=== PATIENT | male | born 1965 | race Caucasian/White ===

== ENCOUNTER 2018-08-08 05:38 | Inpatient (IN) | payer MEDICAID ==
[2018-08-08] VITALS (7 sets, daily range): BP systolic 114–150; BP diastolic 66–72; PULSE 64–67; RESP 18–20; Ht 167.6 cm; Wt 80.6 kg
[~2018-08-08] VITALS: Ht 167.6 cm; Wt 80.6 kg
[~2018-08-08 05:38] MED LIST: METF100010 PO
--- NOTE | 2018-08-08 06:45 | ERD ---
ER Documentation Chief Complaint Chief Complaint chest pain/sob since 1900 HPI This is a 53-year-old male with a history of hypertension, diabetes, CAD with stent placement who presents to the emergency room for evaluation of chest pain. The patient describes his chest pain is a chest pressure which is intermittent left-sided with no radiation. The patient does have mild associated nausea, no vomiting and mild shortness of breath. The patient does state he is compliant with his blood pressure medications. He states that he gets most of his care in [facility], and came to the ER today for evaluation of his symptoms. He denies any aggravating or relieving factors at this time ROS All systems reviewed and are negative except as per history of present illness. Medications Home Meds Reported Medications Metformin Hcl* (Metformin Hcl*) 1,000 Mg Tablet, 1000 MG PO BID 12/06/12 Allergies Allergies: Coded Allergies: No Known Allergy (Unverified , 12/06/12) PMhx/Soc History of Surgery: Yes (STENT) Anesthesia Reaction: No Hx Neurological Disorder: No Hx Respiratory Disorders: No Hx Cardiac Disorders: Yes ([place]) Hx Psychiatric Problems: No Hx Miscellaneous Medical Probl: Yes (DM, HIGH CHOLESTEROL) Hx Alcohol Use: No Hx Substance Use: No Hx Tobacco Use: No Smoking Status: Never smoker Physical Exam Vitals Vital Signs Date Temp Pulse Resp B/P (MAP) Pulse Ox O2 O2 Flow FiO2 Time Delivery Rate 08/08/18 97.6 67 18 154/75 99 05:43 (101) Physical Exam INITIAL VITAL SIGNS: Reviewed by me GENERAL: The patient is well developed and appropriate for usual state of health in no apparent distress HEENT: Pupils equal, round, and reactive to light. EOMI. There is no scleral icterus. NECK: C-spine is soft and supple, there is no meningismus. There is no cervical lymphadenopathy. LUNGS: Clear to auscultation bilaterally. There are no rales, wheezes or rhonchi. HEART: Regular rate and rhythm, no murmurs, clicks, rubs or gallops. ABDOMEN: Soft, non-tender, non-distended. There are bowel sounds in all four quadrants. No rebound or guarding. EXTREMITIES: There is no peripheral cyanosis or edema. No focal swelling or erythema. NEUROLOGICAL: The patient moves all four extremities with 5/5 strength. Cranial nerves II - XII are intact. Normal gait. Alert and oriented SKIN: There is no apparent rash or petechiae. HEME/LYMPHATIC: There is no evidence of excessive bruising or lymphedema. PSYCHIATRIC: The patient does not appear anxious or depressed. Result Diagram: 08/08/1863208/08/18632 Results 24 hrs Laboratory Tests Test 08/08/18 06:33 White Blood Count 5.4 10^3/ul Red Blood Count 4.84 10^6/ul Hemoglobin 13.8 g/dl Hematocrit 40.9 % Mean Corpuscular Volume 84.5 fl Mean Corpuscular Hemoglobin 28.5 pg Mean Corpuscular Hemoglobin Concent 33.7 g/dl Red Cell Distribution Width 13.4 % Platelet Count 204 10^3/UL Mean Platelet Volume 10.2 fl Immature Granulocytes % 0.200 % Neutrophils % 62.3 % Lymphocytes % 24.3 % Monocytes % 8.1 % Eosinophils % 4.4 % Basophils % 0.7 % Nucleated Red Blood Cells % 0.0 /100WBC Immature Granulocytes # 0.010 10^3/ul Neutrophils # 3.4 10^3/ul Lymphocytes # 1.3 10^3/ul Monocytes # 0.4 10^3/ul Eosinophils # 0.2 10^3/ul Basophils # 0.0 10^3/ul Nucleated Red Blood Cells # 0.0 10^3/ul Sodium Level 137 mmol/L Potassium Level 4.1 mmol/L Chloride Level 104 mmol/L Carbon Dioxide Level 29 mmol/L Anion Gap 4 Blood Urea Nitrogen 16 mg/dl Creatinine 0.53 mg/dl Est Glomerular Filtrat Rate mL/min > 60 mL/min Glucose Level 287 mg/dl Calcium Level 8.7 mg/dl Troponin I 0.223 ng/ml Current Medications Medications Dose Sig/Portia Start Time Status Last (Trade) Ordered Route PRN Stop Time Admin Dose Reason Admin Aspirin 324 mg ONCE ONCE 08/08/18 DC (Aspirin) PO 07:30 08/08/18 07:31 Procedures/MDM EKG: Rate/Rhythm: [Normal Sinus Rhythm] QRS, ST, T-waves: [No changes consistent w/ acute ischemia] Impression: [Right axis deviation no evidence of ischemia or arrhythmia] Chest X-ray 1V Interpreted by me: Soft Tissue: No acute abnormalities Bones: No acute abnormalities Mediastinum/Cardiac Silhouette/Lungs: [No acute abnormalities] This 53-year-old male presents to the emergency room for evaluation of chest pain. The patient does have a history of hypertension and coronary artery disease with a stent placed a few years back. The patient states that he has been getting most of his care and [place] and came to the ER today for evaluation of intermittent chest pain which has been present for the past few days. On my evaluation the patient was afebrile and nontoxic-appearing. He remained hemodynamically stable and EKG showed no signs of STEMI. The patient's lab work does demonstrate an elevated troponin level. He was given aspirin and given his age and risk factors the patient will be placed in for admission at this time for serial troponins and cardiology consult. He has no active pain at this time and is hemodynamically stable and will be placed on the telemetry floor under the care of Dr. Palencia. Critical Care: Excluding all billable procedures Time: 48 minutes Treatments/Evaluations: Close monitoring and treatment of unstable vital signs, cardiorespiratory, and neurologic status, while maintaining tight balance of fluid, respiratory, and cardiac interventions. Departure Diagnosis: Primary Impression: Non-STEMI (non-ST elevated myocardial infarction) Additional Impressions: Chest pain Coronary artery disease Condition: HORTENCIA Sims DO August 08, 2018 06:45
[2018-08-08] MEDS ORDERED: ASPIRIN 81 MG TAB PO ONE (07:30)
[2018-08-08] MEDS ORDERED: ACETAMINOPHEN 325 MG TAB PO PRN ×2 (08:00→11:00)
[2018-08-08] MEDS ORDERED: ONDANSETRON 4 MG INJ IV PRN ×2 (08:00→11:00)
[2018-08-08] MEDS ORDERED: INSU100I12 SQ (10:41)
[2018-08-08] MEDS ORDERED: TERB250T13 PO (10:41)
[2018-08-08] MEDS ORDERED: SITA1TBM PO (10:41)
[2018-08-08] MEDS ORDERED: PREG150C PO (10:41)
[2018-08-08] MEDS ORDERED: [UNRECOGNIZED DRUG - OTHER] (10:46)
--- NOTE | 2018-08-08 10:46 | HP ---
Date/Time of Note Date/Time of Note DATE: 08/08/18 TIME: 10:46 Assessment/Plan VTE Prophylaxis Pharmacological prophylaxis: LMWH Lines/Catheters IV [facility]ter [facility]from [facility] Saline Lock Assessment/Plan Hospital Course 53-year-old male with comorbidities including hypertension, dyslipidemia, CAD status post coronary artery stenting, and diabetes mellitus type II, who presented to emergency room with chest pain with underlying NSTEMI, whowill be admitted to inpatient setting for further treatment and evaluation. 1. NSTEMI. -Rule out ACS -Continue aspirin. -Continue to trend troponins. -Obtain 2D echocardiogram to evaluate the left ventricular ejection fraction and to evaluate for any wall motion abnormalities. -Obtain cardiology consult. 2. Hypertension. -Start the patient on appropriate antihypertensives. 3. Diabetes mellitus type 2. -Start the patient sliding scale insulin along with pre-meal insulin and basal insulin. -Obtain hemoglobin A1c to evaluate the blood glucose control over the past few weeks. 4. Dyslipidemia. -Start the patient on statins. 5. CAD status post coronary artery stenting in the past. -Continue the patient on aspirin and statins. Plan: The patient will be admitted to inpatient telemetry floor. The patient will be started on a low-cholesterol, carbohydrate controlled diet. The patient will be started on DVT prophylaxis . The patient will remain a full code. Activities will be as tolerated . The rest of the patient's management will be based on the clinical course, inputs from consultants, and the results of diagnostic studies. Based on the patient's clinical presentation, he most probably requires at least 2 midnights' stay for further management and evaluation of his clinical presentation. The patient was seen in collaboration with Dr. Palencia. Result Diagram: 08/08/18 0633 08/08/18 0633 Results 24hrs Laboratory Tests Test 08/08/18 06:33 White Blood Count 5.4 Red Blood Count 4.84 Hemoglobin 13.8 L Hematocrit 40.9 L Mean Corpuscular Volume 84.5 Mean Corpuscular Hemoglobin 28.5 L Mean Corpuscular Hemoglobin Concent 33.7 Red Cell Distribution Width 13.4 Platelet Count 204 Mean Platelet Volume 10.2 Immature Granulocytes % 0.200 Neutrophils % 62.3 Lymphocytes % 24.3 Monocytes % 8.1 Eosinophils % 4.4 Basophils % 0.7 Nucleated Red Blood Cells % 0.0 Immature Granulocytes # 0.010 Neutrophils # 3.4 Lymphocytes # 1.3 Monocytes # 0.4 Eosinophils # 0.2 Basophils # 0.0 Nucleated Red Blood Cells # 0.0 Sodium Level 137 Potassium Level 4.1 Chloride Level 104 Carbon Dioxide Level 29 Anion Gap 4 L Blood Urea Nitrogen 16 Creatinine 0.53 L Est Glomerular Filtrat Rate mL/min > 60 Glucose Level 287 H Calcium Level 8.7 Troponin I 0.223 *H HPI/ROS Admit Date/Time Admit Date/Time Hx of Present Illness Reason for admission: Chest pain, elevated troponins. Consultants 1. Adriel Norris MD, Cardiology. This is a 53-year-old male with past medical history of hypertension, CAD status post coronary artery stenting, dyslipidemia, and diabetes mellitus type 2. The patient had an episode of chest pain on 08/07/2018 when he called the paramedics and paramedics evaluated him at home and was not transferred to the hospital. The patient came to the emergency room driven by family on 08/08/2018 with chest pain. The patient verbalized the chest pain as substernal and feeling of tightness with associated nausea. The patient denied any diaphoresis, radiation of pain, or vomiting. Patient denied any dizziness. The patient complained of minimal shortness of breath. The pain lasted approximately 20 minutes. Patient denied any fevers or chills. In the emergency room, the patient was noticed to have a troponin of 0.223. The patient's chest x-ray was showing mild right basilar linear atelectatic changes versus scarring. Patient's 12-lead EKG was showing normal sinus rhythm. He was treated with a single dose of aspirin in the emergency room. ROS Constitutional: nausea Eyes: no complaints ENT: no complaints Respiratory: shortness of breath Cardiovascular: chest pain Gastrointestinal: nausea Genitourinary: no complaints Musculoskeletal: no complaints Skin: no complaints Neurologic: no complaints Endocrine: no complaints Lymphatic: no complaints Psychological: no complaints Immunologic: no complaints PMH/Family/Social Past Medical History 1. Hypertension. 2. Hyperlipidemia. 3. Type II. 4. CAD, status post coronary artery stenting in 2007. Medications Current Medications Ondansetron HCl (Zofran Inj) 4 mg ER BRIDGE PRN IV NAUSEA/VOMITING; Start 08/08/18 at 08:00; Stop 08/09/18 at 07:59 Acetaminophen (Tylenol Tab) 650 mg ER BRIDGE PRN PO .MILD PAIN 1-3 OR TEMP; Start 08/08/18 at 08:00; Stop 08/09/18 at 07:59 Coded Allergies: No Known Allergy (Unverified , 08/08/18) Past Surgical History Past Surgical Hx: angioplasty Social History The patient works in a body shop. Alcohol Use: occasionally Smoking Status: Never smoker Drug Use: none Exam/Review of Systems Vital Signs Vitals Vital Signs Date Temp Pulse Resp B/P (MAP) Pulse Ox O2 O2 Flow FiO2 Time Delivery Rate 08/08/18 98.3 63 18 125/70 Room Air 10:38 (88) 08/08/18 97 09:06 Exam Exam General: Adequately build 53 year-old male lying in bed in no apparent distress. HEENT: Normocephalic, atraumatic. Eyes: Anicteric sclerae, conjunctivae clear. ENT: Nasal septum midline, oral mucosa is moist. Neck supple, no JVD noticed. Respiratory: Bilaterally clear breath sounds. No use of accessory muscles of respiration. No adventitious breath sounds. Cardiovascular: S1, S2 heard. Regular rate and rhythm. Abdomen: Soft, nontender, and nondistended. Bowel sounds positive in all 4 quadrants. Genitourinary: Deferred. Extremities: No cyanosis, no clubbing, no edema. Peripheral pulses palpable. Neurologic: Cranial nerves II through XII grossly intact. The patient is awake, alert, and oriented. Skin: Normal skin turgor. LUANN BLAKE NP August 08, 2018 10:46
[2018-08-08] MEDS ORDERED: NACL 0.9% 3 ML SYG IV SCH (11:00)
[2018-08-08] MEDS ORDERED: HYDROCODONE/APAP (5/325) TAB PO PRN (11:00)
[2018-08-08] MEDS ORDERED: GLUCOSE GEL 15 GRAM TUBE BUCCAL PRN (11:30)
[2018-08-08] MEDS ORDERED: GLUCOSE GEL 15 GRAM TUBE PO PRN ×2 (11:30)
[2018-08-08] MEDS ORDERED: DEXTROSE 50% 50 ML SYRINGE IV PRN ×2 (11:30)
[2018-08-08] MEDS ORDERED: GLUCAGON 1 MG INJ IM PRN (11:30)
[2018-08-08] MEDS: INSULIN ASPART [NOVOLOG] 3 ML PEN SC SCH ×5 (12:45→21:26)
[2018-08-08] MEDS: METOPROLOL 25 MG TAB PO SCH ×2 (14:30→20:46)
--- NOTE | 2018-08-08 17:36 | RADRPT ---
Echocardiogram Report Patient Name: DANIEL MANUELPatient ID: [id number] : 1965 (53y 5m)Study Date: 08/08/2018 12:07:20 PM Gender: Kevan #: [id number] Tech: Daniel [facility] Location: [address] Ref.Physician: LUANN BLAKE Height(Cm): BSA: Weight(Kg): Quality: AdequateOrder Physician: LUANN BLAKE Account #: Procedures: Echocardiographic Report: Transthoracic echocardiogram with complete 2D, M-Mode, and doppler examination. Indications: Chest Pain. Measurements: 2D/M Mode Doppler Measurement Value Normal Range Measurement Value Normal Range LVIDd 2D 5.2 [ 4.2 - 5.8 ] cm AV Peak Miguel 1.6 [ 100.0 - 170.0 ] cm/sec LVIDs 2D 3.4 [ 2.5 - 4.0 ] cm AV Peak PG 10.0 [ 2.0 - 9.0 ] mmHg LVPWd 2D 1.3 [ 0.6 - 1.0 ] cm LVOT Peak Miguel 1.1 [ 70.0 - 110.0 ] cm/sec IVSd 2D 1.3 [ 0.6 - 1.0 ] cm LVOT Peak PG 5.0 [ 2.0 - 6.0 ] mmHg AoR Diam 2D 3.0 [ 2.6 - 3.4 ] cm MV E Peak Miguel 0.9 [ 60.0 - 130.0 ] cm/sec EDV 2D 127.0 [ 62.0 - 150.0 ] ml MV A Peak Miguel 0.8 [ 100.0 - 120.0 ] cm/sec ESV 2D 48.1 [ 21.0 - 61.0 ] ml MV E/A 1.1 [ 0.8 - 1.5 ] ratio EF 2D 62.1 [ 52.0 - 72.0 ] percent MV Decel Time 201 [ 104 - 258 ] msec LA Dimen 2D 4.1 [ 3.0 - 4.0 ] cm Lat E` Miguel 0.1 [ 10.0 - 15.0 ] cm/sec Lateral E/E` 7.9 [ 1.0 - 2.0 ] ratio MV E/A 1.1 [ 0.8 - 1.5 ] ratio TR Peak Miguel 2.4 [ 100.0 - 280.0 ] cm/sec TR Peak PG 23.0 mmHg RVSP 26.0 [ 10.0 - 36.0 ] mmHg Findings: Left Ventricle: Normal left ventricular systolic function. Normal left ventricular cavity size. Mild concentric left ventricular hypertrophy. Ejection fraction is visually estimated at 65 %. Tissue Doppler/Mitral Doppler indices are consistent with impaired relaxation (Stage I diastolic dysfunction). Right Ventricle: Normal right ventricular size. Normal right ventricular systolic function. Left Atrium: There is mild enlargement of left atrium. Right Atrium: The right atrium is normal in size. Mitral Valve: Mild mitral leaflet calcification. Mild mitral annular calcification. Trace mitral regurgitation. Aortic Valve: No hemodynamically significant aortic stenosis by doppler. Aortic cusps appear mildly calcified. Tricuspid Valve: Normal appearance of the tricuspid valve. Estimated peak PA systolic pressure 26 mmHg. There is trace tricuspid regurgitation. Pulmonic Valve: Normal pulmonic valve appearance. Pericardium: Normal pericardium with no significant pericardial effusion. Left pleural effusion seen. Aorta: Normal aortic root. IVC: Normal size and normal respiratory collapse consistent with normal right atrial pressure. Conclusions: Normal left ventricular systolic function. Normal left ventricular cavity size. Mild concentric left ventricular hypertrophy. Ejection fraction is visually estimated at 65 %. Tissue Doppler/Mitral Doppler indices are consistent with impaired relaxation (Stage I diastolic dysfunction). There is mild enlargement of left atrium. Electronically Signed By: Adriel Norris 2018-08-08 17:36:06 PDT
--- NOTE | 2018-08-08 19:39 | CONS ---
Assessment/Plan Assessment/Plan Hospital Course (Demo Recall) Assessment: NSTEMI Coronary artery disease, status post PCI (2007) Hypertension Dyslipidemia Diabetes mellitus - HgbA1c 11.3, management per primary team Recommendations: -continue therapeutic Lovenox -continue aspirin 81mg daily -continue atorvastatin 40mg daily, check lipid panel -increase metoprolol to 25mg BID, up titrate as needed/tolerated -echocardiogram showed LVEF 65%, mild LVH with grade 1 diastolic dysfunction -arrange for coronary angiography -hold metformin in preparation for coronary angiography Consultation Date/Type/Reason Admit Date/Time Type of Consult Cardiology Date/Time of Note DATE: 08/08/18 TIME: 19:34 Hx of Present Illness The patient is a 53 year-old male who presented with chest pain. He describes two episodes of resting chest pressure over the past two days. EKG showed sinus rhythm without acute ischemic changes. Initial troponin was 0.2 and repeat troponin trended up to 1.1. 14 point review of systems negative other than per HPI. Past Medical History Coronary artery disease, status post PCI (2007) Hypertension Dyslipidemia Diabetes mellitus Home Meds Reported Medications [[Hidrosmina 200MG ] No Conflict Check, 200 MG DAILY for FROM [place] 08/08/18 Insulin Lispro (Humalog Kwikpen U-100) 100 Unit/1 Ml Insuln.pen, 20 UNIT SQ BID WITH MEALS, EA 08/08/18 Pregabalin* (Lyrica*) 150 Mg Capsule, 150 MG PO QHS, CAP 08/08/18 Sitagliptin Phos-Metformin Hcl (Janumet XR) 50-500 Mg Tbmp.24hr, 1 TAB PO DAILY for 50-850MG, TAB 08/08/18 Terbinafine Hcl* (Terbinafine Hcl*) 250 Mg Tablet, 250 MG PO BID, TAB 08/08/18 Metformin Hcl* (Metformin Hcl*) 1,000 Mg Tablet, 1000 MG PO BID 12/06/12 Medications Current Medications IV Flush (NS 3 ml) 3 ml PER PROTOCOL IV ; Start 08/08/18 at 11:00 Ondansetron HCl (Zofran Inj) 4 mg Q6H PRN IV NAUSEA/VOMITING; Start 08/08/18 at 11:00 Aspirin (Aspirin) 81 mg DAILY PO ; Start 08/09/18 at 09:00 Acetaminophen (Tylenol Tab) 650 mg Q6H PRN PO .PAIN 1-3 OR TEMP; Start 08/08/18 at 11:00 Acetaminophen/ Hydrocodone Bitart ([place] (5/325)) 1 tab Q6H PRN PO .PAIN 4-6; Start 08/08/18 at 11:00 Insulin Glargine (Lantus) 12 units DAILY@2000 SC ; Start 08/08/18 at 20:00 Insulin Aspart (Novolog Insulin Pen) 4 unit WITH MEALS SC Last administered on 08/08/18at 18:49; Admin Dose 4 UNIT; Start 08/08/18 at 11:50 Insulin Aspart (Novolog Insulin Pen) NOVOLOG *MILD* ALGORITHM WITH MEALS BEDTIME SC Last administered on 08/08/18at 18:48; Admin Dose 4 UNIT; Start 08/08/18 at 11:50 Miscellaneous Information 1 ea NOTE XX ; Start 08/08/18 at 11:30 Glucose (Glutose) 15 gm Q15M PRN PO DECREASED GLUCOSE; Start 08/08/18 at 11:30 Glucose (Glutose) 22.5 gm Q15M PRN PO DECREASED GLUCOSE; Start 08/08/18 at 11:30 Dextrose (D50w Syringe) 25 ml Q15M PRN IV DECREASED GLUCOSE; Start 08/08/18 at 11:30 Dextrose (D50w Syringe) 50 ml Q15M PRN IV DECREASED GLUCOSE; Start 08/08/18 at 11:30 Glucagon (Glucagen) 1 mg Q15M PRN IM DECREASED GLUCOSE; Start 08/08/18 at 11:30 Glucose (Glutose) 15 gm Q15M PRN BUCCAL DECREASED GLUCOSE; Start 08/08/18 at 11:30 Atorvastatin Calcium (Lipitor) 40 mg HS PO ; Start 08/08/18 at 21:00 Metoprolol Tartrate (Lopressor) 12.5 mg BID PO Last administered on 08/08/18at 14:30; Admin Dose 12.5 MG; Start 08/08/18 at 12:00 Pregabalin (Lyrica) 150 mg QHS PO ; Start 08/08/18 at 21:00 Enoxaparin Sodium (Lovenox) 80 mg Q12 SC ; Start 08/08/18 at 21:00 Allergies: Coded Allergies: No Known Allergy (Unverified , 08/08/18) Past Surgical History Past Surgical Hx: angioplasty Family History Significant Family History: no pertinent family hx Social History Alcohol Use: occasionally Smoking Status: Never smoker Drug Use: none Exam/Review of Systems Vital Signs Vitals Vital Signs Date Temp Pulse Resp B/P (MAP) Pulse Ox O2 O2 Flow FiO2 Time Delivery Rate 08/08/18 66 16:14 08/08/18 98.1 18 114/66 92 15:12 (82) 08/08/18 Room Air 11:09 Exam Constitutional: alert, well developed Psych: no complaints, nl mood/affect Head: normocephalic, atraumatic Eyes: nl conjunctiva, nl lids ENMT: nl external ears & nose, nl nasal mucosa & septum Neck: supple, non-tender Respiratory: clear to auscultation, normal air movement Cardiovascular: regular rate and rhythm Gastrointestinal: soft, non-tender Musculoskeletal: nl extremities to inspection Extremities: No cyanosis, No clubbing, No edema Neurological: nl mental status, nl speech Labs Result Diagram: 08/08/18 0633 08/08/18 0633 Results 24hrs Laboratory Tests Test 08/08/18 06:32 08/08/18 06:33 08/08/18 12:16 08/08/18 12:45 Hemoglobin A1c 11.3 H B-Type Natriuretic 143 H Peptide White Blood Count 5.4 Red Blood Count 4.84 Hemoglobin 13.8 L Hematocrit 40.9 L Mean Corpuscular 84.5 Volume Mean Corpuscular 28.5 L Hemoglobin Mean Corpuscular 33.7 Hemoglobin Concent Red Cell 13.4 Distribution Width Platelet Count 204 Mean Platelet Volume 10.2 Immature 0.200 Granulocytes % Neutrophils % 62.3 Lymphocytes % 24.3 Monocytes % 8.1 Eosinophils % 4.4 Basophils % 0.7 Nucleated Red Blood 0.0 Cells % Immature 0.010 Granulocytes # Neutrophils # 3.4 Lymphocytes # 1.3 Monocytes # 0.4 Eosinophils # 0.2 Basophils # 0.0 Nucleated Red Blood 0.0 Cells # Sodium Level 137 Potassium Level 4.1 Chloride Level 104 Carbon Dioxide Level 29 Anion Gap 4 L Blood Urea Nitrogen 16 Creatinine 0.53 L Est Glomerular > 60 Filtrat Rate mL/min Glucose Level 287 H Calcium Level 8.7 Troponin I 0.223 *H 1.100 *H Creatine Kinase 260 H Creatine Kinase 4.7 Index Creatinine Kinase MB 12.30 H (Mass) Bedside Glucose 292 H Test 08/08/18 17:14 Bedside Glucose 291 H Medications Medications Current Medications IV Flush (NS 3 ml) 3 ml PER PROTOCOL IV ; Start 08/08/18 at 11:00 Ondansetron HCl (Zofran Inj) 4 mg Q6H PRN IV NAUSEA/VOMITING; Start 08/08/18 at 11:00 Aspirin (Aspirin) 81 mg DAILY PO ; Start 08/09/18 at 09:00 Acetaminophen (Tylenol Tab) 650 mg Q6H PRN PO .PAIN 1-3 OR TEMP; Start 08/08/18 at 11:00 Acetaminophen/ Hydrocodone Bitart ([place] (5/325)) 1 tab Q6H PRN PO .PAIN 4-6; Start 08/08/18 at 11:00 Insulin Glargine (Lantus) 12 units DAILY@2000 SC ; Start 08/08/18 at 20:00 Insulin Aspart (Novolog Insulin Pen) 4 unit WITH MEALS SC Last administered on 08/08/18at 18:49; Admin Dose 4 UNIT; Start 08/08/18 at 11:50 Insulin Aspart (Novolog Insulin Pen) NOVOLOG *MILD* ALGORITHM WITH MEALS BEDTIME SC Last administered on 08/08/18at 18:48; Admin Dose 4 UNIT; Start 08/08/18 at 11:50 Miscellaneous Information 1 ea NOTE XX ; Start 08/08/18 at 11:30 Glucose (Glutose) 15 gm Q15M PRN PO DECREASED GLUCOSE; Start 08/08/18 at 11:30 Glucose (Glutose) 22.5 gm Q15M PRN PO DECREASED GLUCOSE; Start 08/08/18 at 11:30 Dextrose (D50w Syringe) 25 ml Q15M PRN IV DECREASED GLUCOSE; Start 08/08/18 at 11:30 Dextrose (D50w Syringe) 50 ml Q15M PRN IV DECREASED GLUCOSE; Start 08/08/18 at 11:30 Glucagon (Glucagen) 1 mg Q15M PRN IM DECREASED GLUCOSE; Start 08/08/18 at 11:30 Glucose (Glutose) 15 gm Q15M PRN BUCCAL DECREASED GLUCOSE; Start 08/08/18 at 11:30 Atorvastatin Calcium (Lipitor) 40 mg HS PO ; Start 08/08/18 at 21:00 Metoprolol Tartrate (Lopressor) 12.5 mg BID PO Last administered on 08/08/18at 14:30; Admin Dose 12.5 MG; Start 08/08/18 at 12:00 Pregabalin (Lyrica) 150 mg QHS PO ; Start 08/08/18 at 21:00 Enoxaparin Sodium (Lovenox) 80 mg Q12 SC ; Start 08/08/18 at 21:00 ARIANA BLAIR MD August 08, 2018 19:39
[2018-08-08] MEDS: ATORVASTATIN 40 MG TAB PO SCH (20:46)
[2018-08-08] MEDS: ENOXAPARIN 80 MG/0.8 ML SYG SC SCH (21:26)
[2018-08-08] MEDS: INSULIN GLARGINE [LANTus] (100 UNITS/ML) SYG SC SCH (21:26)
[2018-08-08] MEDS: PREGABALIN 75 MG CAP PO SCH (21:41)
[2018-08-09] VITALS (12 sets, daily range): BP systolic 106–123; BP diastolic 65–76; PULSE 64–71; RESP 17–20
[2018-08-09] MEDS: METOPROLOL 25 MG TAB PO SCH ×2 (08:08→20:42)
[2018-08-09] MEDS: ASPIRIN 81 MG TAB PO SCH (08:09)
[2018-08-09] MEDS: INSULIN ASPART [NOVOLOG] 3 ML PEN SC SCH ×7 (08:11→21:16)
[2018-08-09] MEDS: ENOXAPARIN 80 MG/0.8 ML SYG SC SCH ×2 (08:13→21:16)
[2018-08-09] MEDS ORDERED: ENOXAPARIN 40 MG/0.4 ML SYG SC SCH (09:00)
--- NOTE | 2018-08-09 10:38 | PN ---
Date/Time of Note Date/Time of Note DATE: 08/09/18 TIME: 10:34 Assessment/Plan VTE Prophylaxis Risk score (from Ns)>0 risk: 1 SCD applied (from Ns): No SCD contraindicated: other Pharmacological prophylaxis: LMWH Lines/Catheters IV Catheter Type (from [facility]): [place] Assessment/Plan Hospital Course SUBJECTIVE: Denies any chest pain. OBJECTIVE: Physical Exam General: Adequately build 53 year-old male lying in bed in no apparent distress. HEENT: Normocephalic, atraumatic. Eyes: Anicteric sclerae, conjunctivae clear. ENT: Nasal septum midline, oral mucosa is moist. Neck supple, no JVD noticed. Respiratory: Bilaterally clear breath sounds. No use of accessory muscles of respiration. No adventitious breath sounds. Cardiovascular: S1, S2 heard. Regular rate and rhythm. Abdomen: Soft, nontender, and nondistended. Bowel sounds positive in all 4 quadrants. Genitourinary: Deferred. Extremities: No cyanosis, no clubbing, no edema. Peripheral pulses palpable. Neurologic: Cranial nerves II through XII grossly intact. The patient is awake, alert, and oriented. Skin: Normal skin turgor. Labs & Vitals per chart ASSESSMENT & PLAN 53-year-old male with comorbidities including hypertension, dyslipidemia, CAD status post coronary artery stenting, and diabetes mellitus type II, who presented to emergency room with chest pain with underlying NSTEMI, who was admitted to inpatient setting for further treatment and evaluation. 1. NSTEMI. -Troponins significantly elevated. -On therapeutic Lovenox. -Awaiting [facility]. -2D echocardiogram showing preserved left ventricular ejection fraction. -Cardiology following. 2. Hypertension. -Continue the patient on appropriate antihypertensives. 3. Diabetes mellitus type 2. -Continue the patient on sliding scale insulin along with pre-meal insulin and basal insulin. -Hemoglobin A1C 11.3. -Hold metformin. 4. Dyslipidemia. -Continue the patient on statins. 5. CAD status post coronary artery stenting in the past. -Continue the patient on aspirin and statins. 6. Fluids, electrolytes, and nutrition. -Carbohydrate controlled, low cholesterol diet. 7. DVT prophylaxis. -Subcutaneous Lovenox. 8. Plan. -Continue ASA, statins, BBs, and therapeutic Lovenox. -Await [facility]. The patient was seen in collaboration with Dr. Palencia. Result Diagram: 08/09/18 0554 08/09/18 0554 Results 24hrs Laboratory Tests Test 08/08/18 12:16 08/08/18 12:45 08/08/18 17:14 08/08/18 19:24 Creatine Kinase 260 H 376 H Creatine Kinase 4.7 6.0 Index Creatinine Kinase MB 12.30 H 22.70 H (Mass) Troponin I 1.100 *H 5.890 *H Bedside Glucose 292 H 291 H Test 08/08/18 20:45 08/09/18 01:52 08/09/18 05:54 08/09/18 08:04 Bedside Glucose 202 260 H 240 H White Blood Count 7.4 # Red Blood Count 5.03 Hemoglobin 14.8 Hematocrit 42.5 Mean Corpuscular 84.5 Volume Mean Corpuscular 29.4 Hemoglobin Mean Corpuscular 34.8 Hemoglobin Concent Red Cell 13.7 Distribution Width Platelet Count 224 Mean Platelet Volume 10.6 H Immature 0.300 Granulocytes % Neutrophils % 63.6 Lymphocytes % 24.2 Monocytes % 7.6 Eosinophils % 3.8 Basophils % 0.5 Nucleated Red Blood 0.0 Cells % Immature 0.020 Granulocytes # Neutrophils # 4.7 Lymphocytes # 1.8 Monocytes # 0.6 Eosinophils # 0.3 Basophils # 0.0 Nucleated Red Blood 0.0 Cells # Sodium Level 137 Potassium Level 4.3 Chloride Level 105 Carbon Dioxide Level 26 Anion Gap 6 Blood Urea Nitrogen 19 Creatinine 0.57 L Est Glomerular > 60 Filtrat Rate mL/min Glucose Level 277 H Calcium Level 9.2 Phosphorus Level 3.9 Magnesium Level 2.0 Total Bilirubin 0.4 Direct Bilirubin 0.00 Indirect Bilirubin 0.4 Aspartate Amino 43 Transf (AST/SGOT) Alanine 24 Aminotransferase (AL T/SGPT) Alkaline Phosphatase 108 Creatine Kinase 288 H Creatine Kinase 4.5 Index Creatinine Kinase MB 12.90 H (Mass) Troponin I 4.650 *H Total Protein 6.3 Albumin 3.7 Globulin 2.60 Albumin/Globulin 1.42 Ratio Triglycerides Level 240 H Cholesterol Level 228 H LDL Cholesterol, 147 Calculated HDL Cholesterol 33 Cholesterol/HDL 6.9 Ratio Exam/Review of Systems Exam Vitals Vital Signs Date Temp Pulse Resp B/P (MAP) Pulse Ox O2 O2 Flow FiO2 Time Delivery Rate 08/09/18 71 08:00 08/09/18 98.7 17 116/76 97 07:33 (89) 08/08/18 Room Air 11:09 Intake and Output 08/08/18 08/08/18 08/09/18 1515:00 23:00 07:00 IntakeIntake Total 530 ml 400 ml OutputOutput Total 1 ml BalanceBalance 530 ml 399 ml Results Results 24hrs Laboratory Tests Test 08/08/18 12:16 08/08/18 12:45 08/08/18 17:14 08/08/18 19:24 Creatine Kinase 260 H 376 H Creatine Kinase 4.7 6.0 Index Creatinine Kinase MB 12.30 H 22.70 H (Mass) Troponin I 1.100 *H 5.890 *H Bedside Glucose 292 H 291 H Test 08/08/18 20:45 08/09/18 01:52 08/09/18 05:54 08/09/18 08:04 Bedside Glucose 202 260 H 240 H White Blood Count 7.4 # Red Blood Count 5.03 Hemoglobin 14.8 Hematocrit 42.5 Mean Corpuscular 84.5 Volume Mean Corpuscular 29.4 Hemoglobin Mean Corpuscular 34.8 Hemoglobin Concent Red Cell 13.7 Distribution Width Platelet Count 224 Mean Platelet Volume 10.6 H Immature 0.300 Granulocytes % Neutrophils % 63.6 Lymphocytes % 24.2 Monocytes % 7.6 Eosinophils % 3.8 Basophils % 0.5 Nucleated Red Blood 0.0 Cells % Immature 0.020 Granulocytes # Neutrophils # 4.7 Lymphocytes # 1.8 Monocytes # 0.6 Eosinophils # 0.3 Basophils # 0.0 Nucleated Red Blood 0.0 Cells # Sodium Level 137 Potassium Level 4.3 Chloride Level 105 Carbon Dioxide Level 26 Anion Gap 6 Blood Urea Nitrogen 19 Creatinine 0.57 L Est Glomerular > 60 Filtrat Rate mL/min Glucose Level 277 H Calcium Level 9.2 Phosphorus Level 3.9 Magnesium Level 2.0 Total Bilirubin 0.4 Direct Bilirubin 0.00 Indirect Bilirubin 0.4 Aspartate Amino 43 Transf (AST/SGOT) Alanine 24 Aminotransferase (AL T/SGPT) Alkaline Phosphatase 108 Creatine Kinase 288 H Creatine Kinase 4.5 Index Creatinine Kinase MB 12.90 H (Mass) Troponin I 4.650 *H Total Protein 6.3 Albumin 3.7 Globulin 2.60 Albumin/Globulin 1.42 Ratio Triglycerides Level 240 H Cholesterol Level 228 H LDL Cholesterol, 147 Calculated HDL Cholesterol 33 Cholesterol/HDL 6.9 Ratio Medications Medication Current Medications IV Flush (NS 3 ml) 3 ml PER PROTOCOL IV ; Start 08/08/18 at 11:00 Ondansetron HCl (Zofran Inj) 4 mg Q6H PRN IV NAUSEA/VOMITING; Start 08/08/18 at 11:00 Aspirin (Aspirin) 81 mg DAILY PO Last administered on 08/09/18 08:09; Admin Dose 81 MG; Start 08/09/18 at 09:00 Acetaminophen (Tylenol Tab) 650 mg Q6H PRN PO .PAIN 1-3 OR TEMP; Start 08/08/18 at 11:00 Acetaminophen/ Hydrocodone Bitart ([place] (5/325)) 1 tab Q6H PRN PO .PAIN 4-6; Start 08/08/18 at 11:00 Insulin Glargine (Lantus) 12 units DAILY@2000 SC Last administered on 08/08/18at 21:26; Admin Dose 12 UNITS; Start 08/08/18 at 20:00 Insulin Aspart (Novolog Insulin Pen) 4 unit WITH MEALS SC Last administered on 08/09/18at 08:11; Admin Dose 4 UNIT; Start 08/08/18 at 11:50 Insulin Aspart (Novolog Insulin Pen) NOVOLOG *MILD* ALGORITHM WITH MEALS BEDTIME SC Last administered on 08/09/18 08:12; Admin Dose 3 UNIT; Start 07/22 11/09 at 11:50 Miscellaneous Information 1 ea NOTE XX ; Start 08/08/18 at 11:30 Glucose (Glutose) 15 gm Q15M PRN PO DECREASED GLUCOSE; Start 08/08/18 at 11:30 Glucose (Glutose) 22.5 gm Q15M PRN PO DECREASED GLUCOSE; Start 08/08/18 at 11:30 Dextrose (D50w Syringe) 25 ml Q15M PRN IV DECREASED GLUCOSE; Start 08/08/18 at 11:30 Dextrose (D50w Syringe) 50 ml Q15M PRN IV DECREASED GLUCOSE; Start 08/08/18 at 11:30 Glucagon (Glucagen) 1 mg Q15M PRN IM DECREASED GLUCOSE; Start 08/08/18 at 11:30 Glucose (Glutose) 15 gm Q15M PRN BUCCAL DECREASED GLUCOSE; Start 08/08/18 at 11:30 Atorvastatin Calcium (Lipitor) 40 mg HS PO Last administered on 08/08/18 20:46; Admin Dose 40 MG; Start 08/08/18 at 21:00 Metoprolol Tartrate (Lopressor) 12.5 mg BID PO Last administered on 08/09/18 08:08; Admin Dose 12.5 MG; Start 08/08/18 at 12:00 Pregabalin (Lyrica) 150 mg QHS PO Last administered on 08/08/18 21:41; Admin Dose 150 MG; Start 08/08/18 at 21:00 Enoxaparin Sodium (Lovenox) 80 mg Q12 SC Last administered on 08/09/18 08:13; Admin Dose 80 MG; Start 08/08/18 at 21:00 LUANN BLAKE NP August 09, 2018 10:38
--- NOTE | 2018-08-09 10:57 | CONS ---
Assessment/Plan Assessment/Plan Hospital Course (Demo Recall) Assessment: NSTEMI Coronary artery disease, status post PCI (2007) Hypertension Dyslipidemia Diabetes mellitus - HgbA1c 11.3, management per primary team Recommendations: -continue therapeutic Lovenox -continue aspirin 81mg daily -continue atorvastatin 40mg daily, check lipid panel -continue metoprolol to 25mg BID -echocardiogram showed LVEF 65%, mild LVH with grade 1 diastolic dysfunction -arrange for coronary angiography -holding metformin in preparation for coronary angiography Consultation Date/Type/Reason Admit Date/Time August 08, 2018 at 07:45 Initial Consult Date Type of Consult Cardiology Date/Time of Note DATE: 08/09/18 TIME: 10:55 24 HR Interval Summary Free Text/Dictation No further chest pain. Troponins peaked at 5.8 and then downtrended to 4.6. Detailed Summary Additional Comments 14 point review of systems without changes. Exam/Review of Systems Vital Signs Vitals Vital Signs Date Temp Pulse Resp B/P (MAP) Pulse Ox O2 O2 Flow FiO2 Time Delivery Rate 08/09/18 71 08:00 08/09/18 98.7 17 116/76 97 07:33 (89) 08/08/18 Room Air 11:09 Intake and Output 08/08/18 08/08/18 08/09/18 1515:00 23:00 07:00 IntakeIntake Total 530 ml 400 ml OutputOutput Total 1 ml BalanceBalance 530 ml 399 ml Exam Exam Constitutional: alert, well developed Psych: no complaints, nl mood/affect Head: normocephalic, atraumatic Eyes: nl conjunctiva, nl lids ENMT: nl external ears & nose, nl nasal mucosa & septum Neck: supple, non-tender Respiratory: clear to auscultation, normal air movement Cardiovascular: regular rate and rhythm Gastrointestinal: soft, non-tender Musculoskeletal: nl extremities to inspection Extremities: No cyanosis, No clubbing, No edema Neurological: nl mental status, nl speech Labs Result Diagram: 08/09/18 0554 08/09/18 0554 Results 24hrs Laboratory Tests Test 08/08/18 12:16 08/08/18 12:45 08/08/18 17:14 08/08/18 19:24 Creatine Kinase 260 H 376 H Creatine Kinase 4.7 6.0 Index Creatinine Kinase MB 12.30 H 22.70 H (Mass) Troponin I 1.100 *H 5.890 *H Bedside Glucose 292 H 291 H Test 08/08/18 20:45 08/09/18 01:52 08/09/18 05:54 08/09/18 08:04 Bedside Glucose 202 260 H 240 H White Blood Count 7.4 # Red Blood Count 5.03 Hemoglobin 14.8 Hematocrit 42.5 Mean Corpuscular 84.5 Volume Mean Corpuscular 29.4 Hemoglobin Mean Corpuscular 34.8 Hemoglobin Concent Red Cell 13.7 Distribution Width Platelet Count 224 Mean Platelet Volume 10.6 H Immature 0.300 Granulocytes % Neutrophils % 63.6 Lymphocytes % 24.2 Monocytes % 7.6 Eosinophils % 3.8 Basophils % 0.5 Nucleated Red Blood 0.0 Cells % Immature 0.020 Granulocytes # Neutrophils # 4.7 Lymphocytes # 1.8 Monocytes # 0.6 Eosinophils # 0.3 Basophils # 0.0 Nucleated Red Blood 0.0 Cells # Sodium Level 137 Potassium Level 4.3 Chloride Level 105 Carbon Dioxide Level 26 Anion Gap 6 Blood Urea Nitrogen 19 Creatinine 0.57 L Est Glomerular > 60 Filtrat Rate mL/min Glucose Level 277 H Calcium Level 9.2 Phosphorus Level 3.9 Magnesium Level 2.0 Total Bilirubin 0.4 Direct Bilirubin 0.00 Indirect Bilirubin 0.4 Aspartate Amino 43 Transf (AST/SGOT) Alanine 24 Aminotransferase (AL T/SGPT) Alkaline Phosphatase 108 Creatine Kinase 288 H Creatine Kinase 4.5 Index Creatinine Kinase MB 12.90 H (Mass) Troponin I 4.650 *H Total Protein 6.3 Albumin 3.7 Globulin 2.60 Albumin/Globulin 1.42 Ratio Triglycerides Level 240 H Cholesterol Level 228 H LDL Cholesterol, 147 Calculated HDL Cholesterol 33 Cholesterol/HDL 6.9 Ratio Medications Medications Current Medications IV Flush (NS 3 ml) 3 ml PER PROTOCOL IV ; Start 08/08/18 at 11:00 Ondansetron HCl (Zofran Inj) 4 mg Q6H PRN IV NAUSEA/VOMITING; Start 08/08/18 at 11:00 Aspirin (Aspirin) 81 mg DAILY PO Last administered on 08/09/18at 08:09; Admin Dose 81 MG; Start 08/09/18 at 09:00 Acetaminophen (Tylenol Tab) 650 mg Q6H PRN PO .PAIN 1-3 OR TEMP; Start 08/08/18 at 11:00 Acetaminophen/ Hydrocodone Bitart ([place] (5/325)) 1 tab Q6H PRN PO .PAIN 4-6; Start 08/08/18 at 11:00 Insulin Glargine (Lantus) 12 units DAILY@2000 SC Last administered on 08/08/18at 21:26; Admin Dose 12 UNITS; Start 08/08/18 at 20:00 Insulin Aspart (Novolog Insulin Pen) 4 unit WITH MEALS SC Last administered on 08/09/18 08:11; Admin Dose 4 UNIT; Start 08/08/18 at 11:50 Insulin Aspart (Novolog Insulin Pen) NOVOLOG *MILD* ALGORITHM WITH MEALS BEDTIME SC Last administered on 08/09/18 08:12; Admin Dose 3 UNIT; Start 08/08/18 at 11:50 Miscellaneous Information 1 ea NOTE XX ; Start 08/08/18 at 11:30 Glucose (Glutose) 15 gm Q15M PRN PO DECREASED GLUCOSE; Start 08/08/18 at 11:30 Glucose (Glutose) 22.5 gm Q15M PRN PO DECREASED GLUCOSE; Start 08/08/18 at 11:30 Dextrose (D50w Syringe) 25 ml Q15M PRN IV DECREASED GLUCOSE; Start 08/08/18 at 11:30 Dextrose (D50w Syringe) 50 ml Q15M PRN IV DECREASED GLUCOSE; Start 08/08/18 at 11:30 Glucagon (Glucagen) 1 mg Q15M PRN IM DECREASED GLUCOSE; Start 08/08/18 at 11:30 Glucose (Glutose) 15 gm Q15M PRN BUCCAL DECREASED GLUCOSE; Start 08/08/18 at 11:30 Atorvastatin Calcium (Lipitor) 40 mg HS PO Last administered on 08/08/18at 20:46; Admin Dose 40 MG; Start 08/08/18 at 21:00 Metoprolol Tartrate (Lopressor) 12.5 mg BID PO Last administered on 08/09/18 08:08; Admin Dose 12.5 MG; Start 08/08/18 at 12:00 Pregabalin (Lyrica) 150 mg QHS PO Last administered on 08/08/18at 21:41; Admin Dose 150 MG; Start 08/08/18 at 21:00 Enoxaparin Sodium (Lovenox) 80 mg Q12 SC Last administered on 5/19/19at 08:13; Admin Dose 80 MG; Start 08/08/18 at 21:00 ARIANA BLAIR MD August 09, 2018 10:57
[2018-08-09] MEDS: PREGABALIN 75 MG CAP PO SCH (20:40)
[2018-08-09] MEDS: ATORVASTATIN 40 MG TAB PO SCH (20:41)
[2018-08-09] MEDS: INSULIN GLARGINE [LANTus] (100 UNITS/ML) SYG SC SCH (21:16)
[2018-08-10] VITALS (21 sets, daily range): BP systolic 103–129; BP diastolic 60–73; PULSE 59–72; RESP 16–19
[2018-08-10] MEDS: METOPROLOL 25 MG TAB PO SCH ×2 (07:50→20:27)
[2018-08-10] MEDS: INSULIN ASPART [NOVOLOG] 3 ML PEN SC SCH ×7 (07:51→20:28)
--- NOTE | 2018-08-10 07:51 | CONS ---
Assessment/Plan Assessment/Plan Hospital Course (Demo Recall) NSTEMI: trop peak 5.9. Ef preserved. Cath today Coronary artery disease, status post PCI (2007) Hypertension Dyslipidemia Diabetes mellitus - HgbA1c 11.3, management per primary team -cardiac cath this am -continue aspirin 81mg daily -continue atorvastatin 40mg daily -continue metoprolol 25mg BID Consultation Date/Type/Reason Admit Date/Time August 08, 2018 at 07:45 Initial Consult Date Type of Consult Cardiology Date/Time of Note DATE: 08/10/18 TIME: 07:49 24 HR Interval Summary Free Text/Dictation No events. No chest pain. Son at bedside. Explained procedure and details to both. They are agreeable. Exam/Review of Systems Vital Signs Vitals Vital Signs Date Temp Pulse Resp B/P (MAP) Pulse Ox O2 O2 Flow FiO2 Time Delivery Rate 08/10/18 98.2 69 18 103/61 97 07:16 (75) 08/08/18 Room Air 11:09 Intake and Output 08/09/18 08/09/18 08/10/18 1515:00 23:00 07:00 IntakeIntake Total 700 ml BalanceBalance 700 ml Exam Constitutional: alert, oriented Psych: no complaints, nl mood/affect Head: normocephalic, atraumatic Neck: No jvd Respiratory: clear to auscultation; No crackles/rales Cardiovascular: regular rate and rhythm; No edema, No systolic murmur Gastrointestinal: soft, non-tender; No distended Neurological: nl mental status, nl speech Labs Result Diagram: 08/10/18 0541 08/10/18 0541 Results 24hrs Laboratory Tests Test 08/09/18 08:04 08/09/18 12:07 08/09/18 17:32 08/09/18 20:40 Bedside Glucose 240 H 127 205 253 H Test 08/10/18 05:41 White Blood Count 7.1 Red Blood Count 5.08 Hemoglobin 14.9 Hematocrit 43.3 Mean Corpuscular 85.2 Volume Mean Corpuscular 29.3 Hemoglobin Mean Corpuscular 34.4 Hemoglobin Concent Red Cell 13.5 Distribution Width Platelet Count 221 Mean Platelet Volume 10.3 Immature 0.300 Granulocytes % Neutrophils % 57.7 Lymphocytes % 29.0 Monocytes % 7.9 Eosinophils % 4.4 Basophils % 0.7 Nucleated Red Blood 0.0 Cells % Immature 0.020 Granulocytes # Neutrophils # 4.1 Lymphocytes # 2.1 Monocytes # 0.6 Eosinophils # 0.3 Basophils # 0.1 Nucleated Red Blood 0.0 Cells # Sodium Level 139 Potassium Level 4.1 Chloride Level 106 Carbon Dioxide Level 28 Anion Gap 5 Blood Urea Nitrogen 19 Creatinine 0.57 L Est Glomerular > 60 Filtrat Rate mL/min Glucose Level 222 H Calcium Level 8.9 Phosphorus Level 4.1 Magnesium Level 1.9 Troponin I 1.870 *H Medications Medications Current Medications IV Flush (NS 3 ml) 3 ml PER PROTOCOL IV ; Start 08/08/18 at 11:00 Ondansetron HCl (Zofran Inj) 4 mg Q6H PRN IV NAUSEA/VOMITING; Start 08/08/18 at 11:00 Aspirin (Aspirin) 81 mg DAILY PO Last administered on 08/09/18at 08:09; Admin Dose 81 MG; Start 08/09/18 at 09:00 Acetaminophen (Tylenol Tab) 650 mg Q6H PRN PO .PAIN 1-3 OR TEMP; Start 08/08/18 at 11:00 Acetaminophen/ Hydrocodone Bitart ([place] (5/325)) 1 tab Q6H PRN PO .PAIN 4-6; Start 08/08/18 at 11:00 Insulin Glargine (Lantus) 12 units DAILY@2000 SC Last administered on 08/09/18at 21:16; Admin Dose 12 UNITS; Start 08/08/18 at 20:00 Insulin Aspart (Novolog Insulin Pen) 4 unit WITH MEALS SC Last administered on 08/09/18at 18:13; Admin Dose 4 UNIT; Start 08/08/18 at 11:50 Insulin Aspart (Novolog Insulin Pen) NOVOLOG *MILD* ALGORITHM WITH MEALS BEDTIME SC Last administered on 08/09/18at 21:16; Admin Dose 2 UNIT; Start 08/08/18 at 11:50 Miscellaneous Information 1 ea NOTE XX ; Start 08/08/18 at 11:30 Glucose (Glutose) 15 gm Q15M PRN PO DECREASED GLUCOSE; Start 08/08/18 at 11:30 Glucose (Glutose) 22.5 gm Q15M PRN PO DECREASED GLUCOSE; Start 08/08/18 at 11:30 Dextrose (D50w Syringe) 25 ml Q15M PRN IV DECREASED GLUCOSE; Start 08/08/18 at 11:30 Dextrose (D50w Syringe) 50 ml Q15M PRN IV DECREASED GLUCOSE; Start 08/08/18 at 11:30 Glucagon (Glucagen) 1 mg Q15M PRN IM DECREASED GLUCOSE; Start 08/08/18 at 11:30 Glucose (Glutose) 15 gm Q15M PRN BUCCAL DECREASED GLUCOSE; Start 08/08/18 at 11:30 Atorvastatin Calcium (Lipitor) 40 mg HS PO Last administered on 08/09/18at 20:41; Admin Dose 40 MG; Start 08/08/18 at 21:00 Pregabalin (Lyrica) 150 mg QHS PO Last administered on 08/09/18 20:40; Admin Dose 150 MG; Start 08/08/18 at 21:00 Metoprolol Tartrate (Lopressor) 25 mg BID PO Last administered on 08/09/18 20:42; Admin Dose 25 MG; Start 08/09/18 at 21:00 LIBBY DEL VALLE August 10, 2018 07:51
[2018-08-10] MEDS: ASPIRIN 81 MG TAB PO SCH (07:52)
[2018-08-10] MEDS ORDERED: MIDAZOLAM 1 MG/ML 2 ML INJ ONE (09:05)
[2018-08-10] MEDS ORDERED: HEPARIN 1000 UNITS/ML 10 ML INJ ONE (09:05)
[2018-08-10] MEDS ORDERED: FENTAnyl 50 MCG/ML VIAL ONE (09:05)
[2018-08-10] MEDS ORDERED: NITROGLYCERIN (IC) 100 MCG/ML INJ ONE (09:05)
[2018-08-10] MEDS ORDERED: LIDOCAINE 1% (MDV) 20 ML INJ ONE (09:05)
[2018-08-10] MEDS ORDERED: VERAPAMIL 5 MG INJ ONE (09:05)
[2018-08-10] MEDS ORDERED: IODIXANOL LOCM 100 ML BTL ONE (09:05)
[2018-08-10] MEDS ORDERED: SOD CHLORIDE 0.9% 1,000 ML IV SCH (10:13)
--- NOTE | 2018-08-10 10:21 | OPR ---
Date/Time of Note Date/Time of Note DATE: 08/10/18 TIME: 10:14 Operative Report Procedure Date: August 10, 2018 Preoperative Diagnosis NSTEMI Postoperative Diagnosis NSTEMI Operation/Procedure Performed see details Surgeon see signature line Hospital Supervisor none Anesthesia Type: moderate sedation Estimated Blood Loss: none Transfusion none Specimen none Grafts/Implants none Complications none Procedure Description Procedure Date:08/10/2018 Nitroglycerin Supervisor/surgeon:Elian Díaz MD. Procedures Performed: 1)Left heart catheterization with selective left and right coronary angiography. Pre-operative Diagnosis:NSTEMI Post-operative Diagnosis: NSTEMI Indications: 53 yo M with CAD s/p prior PCI, DM, HL, who presented with chest pain and was found to have an NSTEMI with trop 5.9. Description of Procedure: After informed consent, the patient was brought to the cardiac catheterization lab. The procedure site was prepped and draped in usual manner. The patient was premedicated with versed 1 mg and fentanyl 25 mcg. 3 mL lidocaine was injected into the right wrist. Next using the posterior wall technique, the6/5* turkish sheath was inserted into the right radial artery. Next using the JL3.5 and JR4, selective angiography of the left and right coronary arteries were obtained. The pigtail was then advanced into the ventricle and hemodynamics obtained. Left ventricle angiography was not obtained. Next all equipment was removed and hemostasis was obtained by TR band. Findings: Anatomy/Hemodynamics: Left main:normal LAD: mid to distal tandem 90% disease Diagonal: ostial to mid diffuse disease Circumflex: mid-distal 80% followed by patent stent Obtuse marginal 1: ostial 99% long segment Obtuse marginal 2 prox focal 70-80% Cx PDA:proximal 70% RCA:nondominant vessel with prox 100% [employer] with some left-right collaterals LV angiography:not done LV-Ao: no gradient LVEDP:12 mmHg Contrast used:60 mL Fluoroscopy time: 7 min Estimated blood loss<10 mL. Specimen: none Grafts/implants: none Complications: none Assessment: NSTEMI: s/p cath with multivessel CAD. CABG eval CAD: as above DM HL Plan: -CABG eval -resume lovenox tonight for NSTEMI until decision is made -ASA, lipitor, MTP ELIAN DÍAZ August 10, 2018 10:21
--- NOTE | 2018-08-10 16:54 | PN ---
Date/Time of Note Date/Time of Note DATE: 08/10/18 TIME: 16:52 Assessment/Plan VTE [place] [facility] [place]: 2 [place] [facility] [place] SCD contraindicated: low risk/ambulating Pharmacological prophylaxis: NA/contraindicated, LMWH Pharm contraindication: surgical contra Lines/Catheters IV C[facility] Type (from [email or web address] [place] Assessment/Plan Hospital Course A/P 1. NSTEMI; sp cath; multivessel dz; consider cabg/ carotid eval 2. Chr CAD; ho pci 3. Dm II; ooc 11.0 4. Htn 5. DL; ooc 6. Nonadherence? 7. Dm neuropathy? S: events noted O: vss PE no pallor/ jvd reg no mrg ctab bs+ nt nd no r r g no edema Result Diagram: 08/10/1841 08/10/18540 Results 24hrs Laboratory Tests Test 08/09/18 17:32 08/09/18 20:40 08/10/18 05:41 08/10/18 08:01 Bedside Glucose 205 253 H 194 White Blood Count 7.1 Red Blood Count 5.08 Hemoglobin 14.9 Hematocrit 43.3 Mean Corpuscular 85.2 Volume Mean Corpuscular 29.3 Hemoglobin Mean Corpuscular 34.4 Hemoglobin Concent Red Cell 13.5 Distribution Width Platelet Count 221 Mean Platelet Volume 10.3 Immature 0.300 Granulocytes % Neutrophils % 57.7 Lymphocytes % 29.0 Monocytes % 7.9 Eosinophils % 4.4 Basophils % 0.7 Nucleated Red Blood 0.0 Cells % Immature 0.020 Granulocytes # Neutrophils # 4.1 Lymphocytes # 2.1 Monocytes # 0.6 Eosinophils # 0.3 Basophils # 0.1 Nucleated Red Blood 0.0 Cells # Sodium Level 139 Potassium Level 4.1 Chloride Level 106 Carbon Dioxide Level 28 Anion Gap 5 Blood Urea Nitrogen 19 Creatinine 0.57 L Est Glomerular > 60 Filtrat Rate mL/min Glucose Level 222 H Calcium Level 8.9 Phosphorus Level 4.1 Magnesium Level 1.9 Troponin I 1.870 *H Test 08/10/18 11:40 08/10/18 16:23 Bedside Glucose 146 160 Exam/Review of Systems Exam Vitals Vital Signs Date Temp Pulse Resp B/P (MAP) Pulse Ox O2 O2 Flow FiO2 Time Delivery Rate 08/10/18 65 16:12 08/10/18 18 113/60 95 Room Air 13:00 (77) 08/10/18 98.0 12:22 Intake and Output 08/09/18 08/09/18 08/10/18 1515:00 23:00 07:00 IntakeIntake Total 700 ml BalanceBalance 700 ml Results Results 24hrs Laboratory Tests Test 08/09/18 17:32 08/09/18 20:40 08/10/18 05:41 08/10/18 08:01 Bedside Glucose 205 253 H 194 White Blood Count 7.1 Red Blood Count 5.08 Hemoglobin 14.9 Hematocrit 43.3 Mean Corpuscular 85.2 Volume Mean Corpuscular 29.3 Hemoglobin Mean Corpuscular 34.4 Hemoglobin Concent Red Cell 13.5 Distribution Width Platelet Count 221 Mean Platelet Volume 10.3 Immature 0.300 Granulocytes % Neutrophils % 57.7 Lymphocytes % 29.0 Monocytes % 7.9 Eosinophils % 4.4 Basophils % 0.7 Nucleated Red Blood 0.0 Cells % Immature 0.020 Granulocytes # Neutrophils # 4.1 Lymphocytes # 2.1 Monocytes # 0.6 Eosinophils # 0.3 Basophils # 0.1 Nucleated Red Blood 0.0 Cells # Sodium Level 139 Potassium Level 4.1 Chloride Level 106 Carbon Dioxide Level 28 Anion Gap 5 Blood Urea Nitrogen 19 Creatinine 0.57 L Est Glomerular > 60 Filtrat Rate mL/min Glucose Level 222 H Calcium Level 8.9 Phosphorus Level 4.1 Magnesium Level 1.9 Troponin I 1.870 *H Test 08/10/18 11:40 08/10/18 16:23 Bedside Glucose 146 160 Medications Medication Current Medications IV Flush (NS 3 ml) 3 ml PER PROTOCOL IV ; Start 08/08/18 at 11:00 Ondansetron HCl (Zofran Inj) 4 mg Q6H PRN IV NAUSEA/VOMITING; Start 08/08/18 at 11:00 Aspirin (Aspirin) 81 mg DAILY PO Last administered on 08/10/18at 07:52; Admin Dose 81 MG; Start 08/09/18 at 09:00 Acetaminophen (Tylenol Tab) 650 mg Q6H PRN PO .PAIN 1-3 OR TEMP; Start 08/08/18 at 11:00 Acetaminophen/ Hydrocodone Bitart ([place] (5/325)) 1 tab Q6H PRN PO .PAIN 4-6; Start 08/08/18 at 11:00 Insulin Glargine (Lantus) 12 units DAILY@2000 SC Last administered on 08/09/18 21:16; Admin Dose 12 UNITS; Start 08/08/18 at 20:00 Insulin Aspart (Novolog Insulin Pen) 4 unit WITH MEALS SC Last administered on 08/10/18 11:47; Admin Dose 4 UNIT; Start 08/08/18 at 11:50 Insulin Aspart (Novolog Insulin Pen) NOVOLOG *MILD* ALGORITHM WITH MEALS BEDTIME SC Last administered on 08/10/18 11:48; Admin Dose 1 UNIT; Start 08/08/18 at 11:50 Miscellaneous Information 1 ea NOTE XX ; Start 08/08/18 at 11:30 Glucose (Glutose) 15 gm Q15M PRN PO DECREASED GLUCOSE; Start 08/08/18 at 11:30 Glucose (Glutose) 22.5 gm Q15M PRN PO DECREASED GLUCOSE; Start 08/08/18 at 11:30 Dextrose (D50w Syringe) 25 ml Q15M PRN IV DECREASED GLUCOSE; Start 08/08/18 at 11:30 Dextrose (D50w Syringe) 50 ml Q15M PRN IV DECREASED GLUCOSE; Start 08/08/18 at 11:30 Glucagon (Glucagen) 1 mg Q15M PRN IM DECREASED GLUCOSE; Start 08/08/18 at 11:30 Glucose (Glutose) 15 gm Q15M PRN BUCCAL DECREASED GLUCOSE; Start 08/08/18 at 11:30 Atorvastatin Calcium (Lipitor) 40 mg HS PO Last administered on 08/09/18 20:41; Admin Dose 40 MG; Start 08/08/18 at 21:00 Pregabalin (Lyrica) 150 mg QHS PO Last administered on 08/09/18 20:40; Admin Dose 150 MG; Start 08/08/18 at 21:00 Metoprolol Tartrate (Lopressor) 25 mg BID PO Last administered on 08/09/18 20:42; Admin Dose 25 MG; Start 08/09/18 at 21:00 Enoxaparin Sodium (Lovenox) 80 mg Q12 SC ; Start 08/10/18 at 21:00 HANSA FAIR MD August 10, 2018 16:54
[2018-08-10] MEDS: ATORVASTATIN 40 MG TAB PO SCH (20:27)
[2018-08-10] MEDS: PREGABALIN 75 MG CAP PO SCH (20:28)
[2018-08-10] MEDS: INSULIN GLARGINE [LANTus] (100 UNITS/ML) SYG SC SCH (20:35)
[2018-08-10] MEDS: ENOXAPARIN 80 MG/0.8 ML SYG SC SCH (20:35)
[2018-08-11] VITALS (10 sets, daily range): BP systolic 111–119; BP diastolic 66–74; PULSE 54–71; RESP 18
[2018-08-11] MEDS: INSULIN ASPART [NOVOLOG] 3 ML PEN SC SCH ×7 (07:55→20:41)
[2018-08-11] MEDS: METOPROLOL 25 MG TAB PO SCH ×2 (08:09→20:39)
[2018-08-11] MEDS: ASPIRIN 81 MG TAB PO SCH (08:09)
[2018-08-11] MEDS: ENOXAPARIN 80 MG/0.8 ML SYG SC SCH ×2 (08:14→20:40)
--- NOTE | 2018-08-11 12:43 | PN ---
Date/Time of Note Date/Time of Note DATE: 08/11/18 TIME: 12:41 Assessment/Plan VTE Prophylaxis Risk score (from [facility])>0 risk: 2 SCD applied (from [facility]): Yes SCD contraindicated: low risk/ambulating Pharmacological prophylaxis: NA/contraindicated Pharm contraindication: low risk/ambulating Lines/Catheters IV C[facility]ter Type (from [facility]): Peripheral IV Assessment/Plan Hospital Course A/P 1. NSTEMI; sp cath; multivessel dz; consider cabg/ carotid eval 2. Chr CAD; ho pci 3. Dm II; ooc 11.0 4. Htn 5. DL; ooc 6. Nonadherence? 7. Dm neuropathy? S: / events no chest pain dyspnea. One episode of bradycardia yesterday afternoon. O: vss PE no pallor/ jvd reg no mrg ctab bs+ nt nd no r r g no edema Result Diagram: 08/10/1854008/10/18540 Results 24hrs Laboratory Tests Test 08/10/18 16:23 08/10/18 16:58 08/10/18 20:25 08/11/18 02:55 Bedside Glucose 160 155 162 123 Test 08/11/18 07:50 08/11/18 12:04 Bedside Glucose 112 221 H Exam/Review of Systems Exam Vitals Vital Signs Date Temp Pulse Resp B/P (MAP) Pulse Ox O2 O2 Flow FiO2 Time Delivery Rate 08/11/18 98.0 65 18 113/66 94 11:24 (82) 08/10/18 Room Air 13:00 Intake and Output 08/10/18 08/10/18 08/11/18 1515:00 23:00 07:00 IntakeIntake Total 1100 ml 450 ml BalanceBalance 1100 ml 450 ml Results Results 24hrs Laboratory Tests Test 08/10/18 16:23 08/10/18 16:58 08/10/18 20:25 08/11/18 02:55 Bedside Glucose 160 155 162 123 Test 08/11/18 07:50 08/11/18 12:04 Bedside Glucose 112 221 H Medications Medication Current Medications IV Flush (NS 3 ml) 3 ml PER PROTOCOL IV ; Start 08/08/18 at 11:00 Ondansetron HCl (Zofran Inj) 4 mg Q6H PRN IV NAUSEA/VOMITING; Start 08/08/18 at 11:00 Aspirin (Aspirin) 81 mg DAILY PO Last administered on 08/11/18at 08:09; Admin Dose 81 MG; Start 08/09/18 at 09:00 Acetaminophen (Tylenol Tab) 650 mg Q6H PRN PO .PAIN 1-3 OR TEMP; Start 08/08/18 at 11:00 Acetaminophen/ Hydrocodone Bitart ([place] (5/325)) 1 tab Q6H PRN PO .PAIN 4-6; Start 08/08/18 at 11:00 Insulin Glargine (Lantus) 12 units DAILY@2000 SC Last administered on 08/10/18at 20:35; Admin Dose 12 UNITS; Start 08/08/18 at 20:00 Insulin Aspart (Novolog Insulin Pen) 4 unit WITH MEALS SC Last administered on 08/11/18 12:09; Admin Dose 4 UNIT; Start 08/08/18 at 11:50 Insulin Aspart (Novolog Insulin Pen) NOVOLOG *MILD* ALGORITHM WITH MEALS BEDTIME SC Last administered on 08/11/18 12:08; Admin Dose 3 UNIT; Start 08/08/18 at 11:50 Miscellaneous Information 1 ea NOTE XX ; Start 08/08/18 at 11:30 Glucose (Glutose) 15 gm Q15M PRN PO DECREASED GLUCOSE; Start 08/08/18 at 11:30 Glucose (Glutose) 22.5 gm Q15M PRN PO DECREASED GLUCOSE; Start 08/08/18 at 11:30 Dextrose (D50w Syringe) 25 ml Q15M PRN IV DECREASED GLUCOSE; Start 08/08/18 at 11:30 Dextrose (D50w Syringe) 50 ml Q15M PRN IV DECREASED GLUCOSE; Start 08/08/18 at 11:30 Glucagon (Glucagen) 1 mg Q15M PRN IM DECREASED GLUCOSE; Start 08/08/18 at 11:30 Glucose (Glutose) 15 gm Q15M PRN BUCCAL DECREASED GLUCOSE; Start 08/08/18 at 11:30 Atorvastatin Calcium (Lipitor) 40 mg HS PO Last administered on 08/10/18at 20:27; Admin Dose 40 MG; Start 08/08/18 at 21:00 Pregabalin (Lyrica) 150 mg QHS PO Last administered on 08/10/18at 20:28; Admin Dose 150 MG; Start 08/08/18 at 21:00 Metoprolol Tartrate (Lopressor) 25 mg BID PO Last administered on 08/11/18at 08:09; Admin Dose 25 MG; Start 08/09/18 at 21:00 Enoxaparin Sodium (Lovenox) 80 mg Q12 SC Last administered on 08/11/18at 08:14; Admin Dose 80 MG; Start 08/10/18 at 21:00 HANSA FAIR MD August 11, 2018 12:43
--- NOTE | 2018-08-11 17:01 | CONS ---
Assessment/Plan Assessment/Plan Hospital Course (Demo Recall) NSTEMI: trop peak 5.9. EF preserved. Cath 08/10 showed multivessel CAD. Plan for CABG with Dr. Ley. Coronary artery disease, status post PCI (2007) Hypertension Dyslipidemia Diabetes mellitus - HgbA1c 11.3, management per primary team -CABG eval. Will be seen by Dr. Romero -continue therapeutic lovenox until CABG. -continue aspirin 81mg daily -continue atorvastatin 40mg daily -continue metoprolol 25mg BID Consultation Date/Type/Reason Admit Date/Time August 08, 2018 at 07:45 Initial Consult Date Type of Consult Cardiology Date/Time of Note DATE: 08/11/18 TIME: 16:59 24 HR Interval Summary Free Text/Dictation No chest pain. Family at bedside Exam/Review of Systems Vital Signs Vitals Vital Signs Date Temp Pulse Resp B/P (MAP) Pulse Ox O2 O2 Flow FiO2 Time Delivery Rate 08/11/18 61 16:00 08/11/18 98.0 18 113/66 94 11:24 (82) 08/10/18 Room Air 13:00 Intake and Output 08/10/18 08/10/18 08/11/18 1515:00 23:00 07:00 IntakeIntake Total 1100 ml 450 ml BalanceBalance 1100 ml 450 ml Exam Constitutional: alert, oriented Psych: no complaints, nl mood/affect Head: normocephalic, atraumatic Neck: supple; No jvd Respiratory: clear to auscultation; No crackles/rales Cardiovascular: regular rate and rhythm; No edema, No systolic murmur Gastrointestinal: soft, non-tender; No distended Neurological: nl mental status, nl speech Labs Result Diagram: 08/10/18 0541 08/10/18 0541 Results 24hrs Laboratory Tests Test 08/10/18 20:25 08/11/18 02:55 08/11/18 07:50 08/11/18 12:04 Bedside Glucose 162 123 112 221 H Medications Medications Current Medications IV Flush (NS 3 ml) 3 ml PER PROTOCOL IV ; Start 08/08/18 at 11:00 Ondansetron HCl (Zofran Inj) 4 mg Q6H PRN IV NAUSEA/VOMITING; Start 08/08/18 at 11:00 Aspirin (Aspirin) 81 mg DAILY PO Last administered on 08/11/18 08:09; Admin Dose 81 MG; Start 08/09/18 at 09:00 Acetaminophen (Tylenol Tab) 650 mg Q6H PRN PO .PAIN 1-3 OR TEMP; Start 08/08/18 at 11:00 Acetaminophen/ Hydrocodone Bitart ([place] (5/325)) 1 tab Q6H PRN PO .PAIN 4-6; Start 08/08/18 at 11:00 Insulin Glargine (Lantus) 12 units DAILY@2000 SC Last administered on 08/10/18 20:35; Admin Dose 12 UNITS; Start 08/08/18 at 20:00 Insulin Aspart (Novolog Insulin Pen) 4 unit WITH MEALS SC Last administered on 08/11/18 12:09; Admin Dose 4 UNIT; Start 08/08/18 at 11:50 Insulin Aspart (Novolog Insulin Pen) NOVOLOG *MILD* ALGORITHM WITH MEALS BEDTIME SC Last administered on 08/11/18 12:08; Admin Dose 3 UNIT; Start 08/08/18 at 11:50 Miscellaneous Information 1 ea NOTE XX ; Start 08/08/18 at 11:30 Glucose (Glutose) 15 gm Q15M PRN PO DECREASED GLUCOSE; Start 08/08/18 at 11:30 Glucose (Glutose) 22.5 gm Q15M PRN PO DECREASED GLUCOSE; Start 08/08/18 at 11:30 Dextrose (D50w Syringe) 25 ml Q15M PRN IV DECREASED GLUCOSE; Start 08/08/18 at 11:30 Dextrose (D50w Syringe) 50 ml Q15M PRN IV DECREASED GLUCOSE; Start 08/08/18 at 11:30 Glucagon (Glucagen) 1 mg Q15M PRN IM DECREASED GLUCOSE; Start 08/08/18 at 11:30 Glucose (Glutose) 15 gm Q15M PRN BUCCAL DECREASED GLUCOSE; Start 08/08/18 at 11:30 Atorvastatin Calcium (Lipitor) 40 mg HS PO Last administered on 08/10/18at 20:27 ; Admin Dose 40 MG; Start 08/08/18 at 21:00 Pregabalin (Lyrica) 150 mg QHS PO Last administered on 08/10/18 20:28; Admin Dose 150 MG; Start 08/08/18 at 21:00 Metoprolol Tartrate (Lopressor) 25 mg BID PO Last administered on 08/11/18at 08:09; Admin Dose 25 MG; Start 08/09/18 at 21:00 Enoxaparin Sodium (Lovenox) 80 mg Q12 SC Last administered on 08/11/18at 08:14; Admin Dose 80 MG; Start 08/10/18 at 21:00 Famotidine (Pepcid) 20 mg DAILY PO ; Start 08/12/18 at 09:00 Insulin Human Regular 100 unit/ Sodium Chloride 100 ml @ 0 mls/hr Q0M ONCE IVPB ; Start 08/12/18 at 11:00; Stop 08/12/18 at 11:01 Norepinephrine 250 ml @ 0 mls/hr ONCE ONCE IV ; Start 08/12/18 at 11:00; Stop 08/12/18 at 11:01 Epinephrine 4 mg/ Dextrose 250 ml @ 0 mls/hr Q0M ONCE IV ; Start 08/12/18 at 11:00; Stop 08/12/18 at 11:01 Phenylephrine HCl 250 ml @ 0 mls/hr ONCE ONCE IV ; Start 08/12/18 at 11:00; Stop 08/12/18 at 11:01 Aspirin (Aspirin) 600 mg ONCE ONCE [place] ; Start 08/12/18 at 11:00; Stop 08/12/18 at 11:01 Heparin Sodium (Porcine) 39806 unit/Milrinone Lactate 10 mg/ Sodium Chloride 1,011 ml @ 0 mls/hr ONCE ONCE SC ; Start 08/12/18 at 11:00; Stop 08/12/18 at 11:01 Milrinone Lactate 2 mg/Sodium Chloride 52 ml @ 0 mls/hr ONCE ONCE IV ; Start 08/12/18 at 11:00; Stop 08/12/18 at 11:01 LIBBY DEL VALLE August 11, 2018 17:01
[2018-08-11] MEDS: INSULIN GLARGINE [LANTus] (100 UNITS/ML) SYG SC SCH (20:38)
[2018-08-11] MEDS: ATORVASTATIN 40 MG TAB PO SCH (20:39)
[2018-08-11] MEDS: PREGABALIN 75 MG CAP PO SCH (20:39)
--- NOTE | 2018-08-11 23:13 | PN ---
Date/Time of Note Date/Time of Note DATE: 08/11/18 TIME: 23:12 Assessment/Plan Lines/Catheters IV [facility] Type (from [facility]): Peripheral IV Assessment/Plan Assessment/Plan FULL NOTE DICTATED 53 year old male with DM, CAD, previous stenting admitted with NSTEMI. Cath shows severe 3v CAD. I recommend urgent cabg. I explained the benefits, risks, and alternatives to the patient. The risks are but not limited to bleeding, infection, stroke, MO, renal and respiratory failure and . He understands and consents Exam/Review of Systems Vital Signs Vitals Vital Signs Date Temp Pulse Resp B/P (MAP) Pulse Ox O2 O2 Flow FiO2 Time Delivery Rate 08/11/18 98.0 64 18 119/68 95 20:41 (85) 08/10/18 Room Air 13:00 Intake and Output 08/10/18 08/10/18 08/11/18 1515:00 23:00 07:00 IntakeIntake Total 1100 ml 450 ml BalanceBalance 1100 ml 450 ml Results Result Diagram: 08/10/18 0541 08/10/18 0541 SHARLA DOWNS MD August 11, 2018 23:13
[2018-08-12] VITALS (32 sets, daily range): BP systolic 90–133; BP diastolic 40–77; PULSE 36–104; RESP 8–23; TEMP 99.7–100.6
--- NOTE | 2018-08-12 06:59 | CONS ---
Assessment/Plan Assessment/Plan Hospital Course (Demo Recall) NSTEMI: trop peak 5.9. EF preserved. Cath 08/10 showed multivessel CAD. Plan for CABG with Dr. Ley. Coronary artery disease, status post PCI (2007) Hypertension Dyslipidemia Diabetes mellitus - HgbA1c 11.3, management per primary team -CABG today -d/c lovenox -continue aspirin 81mg daily -continue atorvastatin 40mg daily -continue metoprolol 25mg BID Consultation Date/Type/Reason Admit Date/Time August 08, 2018 at 07:45 Initial Consult Date Type of Consult Cardiology Date/Time of Note DATE: 08/12/18 TIME: 06:58 24 HR Interval Summary Free Text/Dictation No events. CABG today Exam/Review of Systems Vital Signs Vitals Vital Signs Date Temp Pulse Resp B/P (MAP) Pulse Ox O2 O2 Flow FiO2 Time Delivery Rate 08/12/18 60 04:00 08/12/18 98.5 18 128/77 96 00:00 (94) 08/10/18 Room Air 13:00 Intake and Output 08/11/18 08/11/18 08/12/18 1515:00 23:00 07:00 IntakeIntake Total 900 ml 500 ml OutputOutput Total 3 ml BalanceBalance 897 ml 500 ml Exam Constitutional: alert, oriented Psych: no complaints, nl mood/affect Head: normocephalic, atraumatic Neck: supple Respiratory: clear to auscultation; No crackles/rales Cardiovascular: regular rate and rhythm; No edema, No systolic murmur Gastrointestinal: soft, non-tender Neurological: nl mental status, nl speech Labs Result Diagram: 08/12/18 0629 08/10/18 0541 Results 24hrs Laboratory Tests Test 08/11/18 07:50 08/11/18 12:04 08/11/18 17:43 08/11/18 20:35 Bedside Glucose 112 221 H 139 199 Test 08/12/18 02:45 08/12/18 03:03 08/12/18 06:29 Bedside Glucose 151 143 White Blood Count 7.3 Red Blood Count 5.21 Hemoglobin 15.1 Hematocrit 44.7 Mean Corpuscular 85.8 Volume Mean Corpuscular 29.0 Hemoglobin Mean Corpuscular 33.8 Hemoglobin Concent Red Cell 13.6 Distribution Width Platelet Count 235 Mean Platelet Volume 10.1 Immature 0.300 Granulocytes % Neutrophils % 60.5 Lymphocytes % 26.4 Monocytes % 8.0 Eosinophils % 4.1 Basophils % 0.7 Nucleated Red Blood 0.0 Cells % Immature 0.020 Granulocytes # Neutrophils # 4.4 Lymphocytes # 1.9 Monocytes # 0.6 Eosinophils # 0.3 Basophils # 0.1 Nucleated Red Blood 0.0 Cells # Medications Medications Current Medications IV Flush (NS 3 ml) 3 ml PER PROTOCOL IV ; Start 08/08/18 at 11:00 Ondansetron HCl (Zofran Inj) 4 mg Q6H PRN IV NAUSEA/VOMITING; Start 08/08/18 at 11:00 Aspirin (Aspirin) 81 mg DAILY PO Last administered on 08/11/18at 08:09; Admin Dose 81 MG; Start 08/09/18 at 09:00 Acetaminophen (Tylenol Tab) 650 mg Q6H PRN PO .PAIN 1-3 OR TEMP; Start 08/08/18 at 11:00 Acetaminophen/ Hydrocodone Bitart ([place] (5/325)) 1 tab Q6H PRN PO .PAIN 4-6; Start 08/08/18 at 11:00 Insulin Glargine (Lantus) 12 units DAILY@2000 SC Last administered on 08/11/18at 20:38; Admin Dose 12 UNITS; Start 08/08/18 at 20:00 Insulin Aspart (Novolog Insulin Pen) 4 unit WITH MEALS SC Last administered on 08/11/18at 17:52; Admin Dose 4 UNIT; Start 08/08/18 at 11:50 Insulin Aspart (Novolog Insulin Pen) NOVOLOG *MILD* ALGORITHM WITH MEALS BEDTIME SC Last administered on 08/11/18at 20:41; Admin Dose 1 UNIT; Start 08/08/18 at 11:50 Miscellaneous Information 1 ea NOTE XX ; Start 08/08/18 at 11:30 Glucose (Glutose) 15 gm Q15M PRN PO DECREASED GLUCOSE; Start 08/08/18 at 11:30 Glucose (Glutose) 22.5 gm Q15M PRN PO DECREASED GLUCOSE; Start 08/08/18 at 11:30 Dextrose (D50w Syringe) 25 ml Q15M PRN IV DECREASED GLUCOSE; Start 08/08/18 at 11:30 Dextrose (D50w Syringe) 50 ml Q15M PRN IV DECREASED GLUCOSE; Start 08/08/18 at 11:30 Glucagon (Glucagen) 1 mg Q15M PRN IM DECREASED GLUCOSE; Start 08/08/18 at 11:30 Glucose (Glutose) 15 gm Q15M PRN BUCCAL DECREASED GLUCOSE; Start 08/08/18 at 11:30 Atorvastatin Calcium (Lipitor) 40 mg HS PO Last administered on 08/11/18at 20:39; Admin Dose 40 MG; Start 08/08/18 at 21:00 Pregabalin (Lyrica) 150 mg QHS PO Last administered on 08/11/18at 20:39; Admin Dose 150 MG; Start 08/08/18 at 21:00 Metoprolol Tartrate (Lopressor) 25 mg BID PO Last administered on 08/11/18at 20:39; Admin Dose 25 MG; Start 08/09/18 at 21:00 Enoxaparin Sodium (Lovenox) 80 mg Q12 SC Last administered on 08/11/18at 20:40; Admin Dose 80 MG; Start 08/10/18 at 21:00 Famotidine (Pepcid) 20 mg DAILY PO ; Start 08/12/18 at 09:00 Insulin Human Regular 100 unit/ Sodium Chloride 100 ml @ 0 mls/hr Q0M ONCE IVPB ; Start 08/12/18 at 11:00; Stop 08/12/18 at 11:01 Norepinephrine 250 ml @ 0 mls/hr ONCE ONCE IV ; Start 08/12/18 at 11:00; Stop 08/12/18 at 11:01 Epinephrine 4 mg/ Dextrose 250 ml @ 0 mls/hr Q0M ONCE IV ; Start 08/12/18 at 11:00; Stop 08/12/18 at 11:01 Phenylephrine HCl 250 ml @ 0 mls/hr ONCE ONCE IV ; Start 08/12/18 at 11:00; Stop 08/12/18 at 11:01 Aspirin (Aspirin) 600 mg ONCE ONCE [place] ; Start 08/12/18 at 11:00; Stop 08/12/18 at 11:01 Heparin Sodium (Porcine) 97113 unit/Milrinone Lactate 10 mg/ Sodium Chloride 1,011 ml @ 0 mls/hr ONCE ONCE SC ; Start 08/12/18 at 11:00; Stop 08/12/18 at 11:01 Milrinone Lactate 2 mg/Sodium Chloride 52 ml @ 0 mls/hr ONCE ONCE IV ; Start 08/12/18 at 11:00; Stop 08/12/18 at 11:01 Cefazolin Sodium/ Dextrose 50 ml @ 100 mls/hr PRE-OP ONCE IVPB ; Start 08/12/18 at 11:30; Stop 08/12/18 at 11:59 LIBBY DEL VALLE August 12, 2018 06:59
[2018-08-12] MEDS: INSULIN ASPART [NOVOLOG] 3 ML PEN SC SCH ×4 (07:55→11:47)
[2018-08-12] MEDS: METOPROLOL 25 MG TAB PO SCH (08:43)
[2018-08-12] MEDS: ASPIRIN 81 MG TAB PO SCH (08:43)
[2018-08-12] MEDS ORDERED: FAMOTIDINE 20 MG TAB PO SCH (09:00)
[2018-08-12] MEDS ORDERED: EPINEPHrine 4 MG in DEXTROSE 5% 246 ML IV ONE (11:00)
[2018-08-12] MEDS ORDERED: ASPIRIN 600 MG SUPP PR ONE (11:00)
[2018-08-12] MEDS ORDERED: INSULIN HUMAN REGULAR 100 UNIT in SOD CHLORIDE 0.9% 99 ML IVPB ONE (11:00)
[2018-08-12] MEDS ORDERED: PHENYLephrine 20MG IN 250 ML 250 ML IV ONE (11:00)
[2018-08-12] MEDS ORDERED: HEPARIN (10000 UNITS/ML) 10,000 UNIT, MILRINONE LACTATE 10 MG in SOD CHLORIDE 0.9% 1,00... SC ONE (11:00)
[2018-08-12] MEDS ORDERED: MILRINONE LACTATE 2 MG in SOD CHLORIDE 0.9% 50 ML IV ONE (11:00)
[2018-08-12] MEDS ORDERED: NORepinephrine 8MG/250 ML (PMX 250 ML IV ONE (11:00)
[2018-08-12] MEDS ORDERED: CEFAZOLIN 2 GM/50 ML (PMX) 50 ML IVPB ONE (11:30)
--- NOTE | 2018-08-12 11:45 | PN ---
Date/Time of Note Date/Time of Note DATE: 08/12/18 TIME: 11:44 Assessment/Plan VTE Prophylaxis Risk score (from [facility])>0 risk: 4 SCD applied (from [facility]): No SCD contraindicated: low risk/ambulating Pharmacological prophylaxis: NA/contraindicated Pharm contraindication: surgical contra Lines/Catheters IV Catheter Type (from [facility] [place] Assessment/Plan Hospital Course A/P 1. NSTEMI; sp cath; multivessel dz; cabg. Carotids normal. 2. Chr CAD; ho pci 3. Dm II; ooc 11.0 4. Htn 5. DL; ooc 6. Nonadherence? 7. Dm neuropathy? S: /20 events noted / no chest pain dyspnea. One episode of bradycardia yesterday afternoon. 22: No events O: vss PE no pallor/ jvd reg no mrg ctab bs+ nt nd no r r g no edema Result Diagram: 08/12/18 0629 08/12/18 0629 Results 24hrs Laboratory Tests Test 08/11/18 12:04 08/11/18 17:43 08/11/18 20:35 08/12/18 02:45 Bedside Glucose 221 H 139 199 151 Test 08/12/18 03:03 08/12/18 06:29 08/12/18 07:56 Bedside Glucose 143 161 White Blood Count 7.3 Red Blood Count 5.21 Hemoglobin 15.1 Hematocrit 44.7 Mean Corpuscular 85.8 Volume Mean Corpuscular 29.0 Hemoglobin Mean Corpuscular 33.8 Hemoglobin Concent Red Cell 13.6 Distribution Width Platelet Count 235 Mean Platelet Volume 10.1 Immature 0.300 Granulocytes % Neutrophils % 60.5 Lymphocytes % 26.4 Monocytes % 8.0 Eosinophils % 4.1 Basophils % 0.7 Nucleated Red Blood 0.0 Cells % Immature 0.020 Granulocytes # Neutrophils # 4.4 Lymphocytes # 1.9 Monocytes # 0.6 Eosinophils # 0.3 Basophils # 0.1 Nucleated Red Blood 0.0 Cells # Sodium Level 139 Potassium Level 4.1 Chloride Level 104 Carbon Dioxide Level 31 Anion Gap 4 L Blood Urea Nitrogen 19 Creatinine 0.62 Est Glomerular > 60 Filtrat Rate mL/min Glucose Level 177 Calcium Level 9.1 Magnesium Level 1.9 Thyroid Stimulating 3.520 Hormone (TSH) Exam/Review of Systems Exam Vitals Vital Signs Date Temp Pulse Resp B/P (MAP) Pulse Ox O2 O2 Flow FiO2 Time Delivery Rate 08/12/18 98.0 88 18 106/68 97 Room Air 11:09 (81) Intake and Output 08/11/18 08/11/18 08/12/18 1515:00 23:00 07:00 IntakeIntake Total 900 ml 500 ml OutputOutput Total 3 ml BalanceBalance 897 ml 500 ml Results Results 24hrs Laboratory Tests Test 08/11/18 12:04 08/11/18 17:43 08/11/18 20:35 08/12/18 02:45 Bedside Glucose 221 H 139 199 151 Test 08/12/18 03:03 08/12/18 06:29 08/12/18 07:56 Bedside Glucose 143 161 White Blood Count 7.3 Red Blood Count 5.21 Hemoglobin 15.1 Hematocrit 44.7 Mean Corpuscular 85.8 Volume Mean Corpuscular 29.0 Hemoglobin Mean Corpuscular 33.8 Hemoglobin Concent Red Cell 13.6 Distribution Width Platelet Count 235 Mean Platelet Volume 10.1 Immature 0.300 Granulocytes % Neutrophils % 60.5 Lymphocytes % 26.4 Monocytes % 8.0 Eosinophils % 4.1 Basophils % 0.7 Nucleated Red Blood 0.0 Cells % Immature 0.020 Granulocytes # Neutrophils # 4.4 Lymphocytes # 1.9 Monocytes # 0.6 Eosinophils # 0.3 Basophils # 0.1 Nucleated Red Blood 0.0 Cells # Sodium Level 139 Potassium Level 4.1 Chloride Level 104 Carbon Dioxide Level 31 Anion Gap 4 L Blood Urea Nitrogen 19 Creatinine 0.62 Est Glomerular > 60 Filtrat Rate mL/min Glucose Level 177 Calcium Level 9.1 Magnesium Level 1.9 Thyroid Stimulating 3.520 Hormone (TSH) Medications Medication Current Medications IV Flush (NS 3 ml) 3 ml PER PROTOCOL IV ; Start 08/08/18 at 11:00 Ondansetron HCl (Zofran Inj) 4 mg Q6H PRN IV NAUSEA/VOMITING; Start 08/08/18 at 11:00 Aspirin (Aspirin) 81 mg DAILY PO Last administered on 08/12/18at 08:43; Admin Dose 81 MG; Start 08/09/18 at 09:00 Acetaminophen (Tylenol Tab) 650 mg Q6H PRN PO .PAIN 1-3 OR TEMP; Start 08/08/18 at 11:00 Acetaminophen/ Hydrocodone Bitart ([place] (5/325)) 1 tab Q6H PRN PO .PAIN 4-6; Start 08/08/18 at 11:00 Insulin Glargine (Lantus) 12 units DAILY@2000 SC Last administered on 08/11/18 20:38; Admin Dose 12 UNITS; Start 08/08/18 at 20:00 Insulin Aspart (Novolog Insulin Pen) 4 unit WITH MEALS SC Last administered on 08/11/18 17:52; Admin Dose 4 UNIT; Start 08/08/18 at 11:50 Insulin Aspart (Novolog Insulin Pen) NOVOLOG *MILD* ALGORITHM WITH MEALS BEDTIME SC Last administered on 08/12/18 08:37; Admin Dose 1 UNIT; Start 08/08/18 at 11:50 Miscellaneous Information 1 ea NOTE XX ; Start 08/08/18 at 11:30 Glucose (Glutose) 15 gm Q15M PRN PO DECREASED GLUCOSE; Start 08/08/18 at 11:30 Glucose (Glutose) 22.5 gm Q15M PRN PO DECREASED GLUCOSE; Start 08/08/18 at 11:30 Dextrose (D50w Syringe) 25 ml Q15M PRN IV DECREASED GLUCOSE; Start 08/08/18 at 11:30 Dextrose (D50w Syringe) 50 ml Q15M PRN IV DECREASED GLUCOSE; Start 08/08/18 at 11:30 Glucagon (Glucagen) 1 mg Q15M PRN IM DECREASED GLUCOSE; Start 08/08/18 at 11:30 Glucose (Glutose) 15 gm Q15M PRN BUCCAL DECREASED GLUCOSE; Start 08/08/18 at 11:30 Atorvastatin Calcium (Lipitor) 40 mg HS PO Last administered on 08/11/18 20:39; Admin Dose 40 MG; Start 08/08/18 at 21:00 Pregabalin (Lyrica) 150 mg QHS PO Last administered on 08/11/18 20:39; Admin Dose 150 MG; Start 08/08/18 at 21:00 Metoprolol Tartrate (Lopressor) 25 mg BID PO Last administered on 08/12/18 08:43; Admin Dose 25 MG; Start 08/09/18 at 21:00 Famotidine (Pepcid) 20 mg DAILY PO Last administered on 08/12/18 08:43; Admin Dose 20 MG; Start 08/12/18 at 09:00 Cefazolin Sodium/ Dextrose 50 ml @ 100 mls/hr PRE-OP ONCE IVPB ; Start 08/12/18 at 11:30; Stop 08/12/18 at 11:59 HANSA FAIR MD August 12, 2018 11:45
[2018-08-12] MEDS ORDERED: NITROGLYCERIN 50 MG/D5W (PMX) 250 ML IV SCH ×2 (12:30→17:30)
[2018-08-12] MEDS ORDERED: PHENYLephrine 20MG IN 250 ML 250 ML IV SCH (12:30)
[2018-08-12] MEDS ORDERED: DOPamine-D5W 1.6 MG/ML 250 ML IV SCH ×2 (12:30→17:30)
--- NOTE | 2018-08-12 12:30 | PREAC ---
Date/Time of Note Date/Time of Note DATE: 08/12/18 TIME: 12:28 Anesthesia Eval and Record Evaluation Time Pre-Procedure Interview DATE: 08/12/18 TIME: 12:28 Age 53 Sex male NPO: 8 hrs Preoperative diagnosis CAD, s/p WI Planned procedure CABG Past Medical History Past Medical History: Includes Cardio: HTN, Dyslipidemia Endo: Diabetes Pulm: COPD GI: Morbid obesity Surgery & Anesthesia Issues No known issue Meds Anticoagulation: No Beta Goran within 24 hr: No Reason Beta Goran not given: Pt. not on B-Goran Reported Medications [[Hidrosmina 200MG ] No Conflict Check, 200 MG DAILY for FROM [place] 08/08/18 Insulin Lispro (Humalog Kwikpen U-100) 100 Unit/1 Ml Insuln.pen, 20 UNIT SQ BID WITH MEALS, EA 08/08/18 Pregabalin* (Lyrica*) 150 Mg Capsule, 150 MG PO QHS, CAP 08/08/18 Sitagliptin Phos-Metformin Hcl (Janumet XR) 50-500 Mg Tbmp.24hr, 1 TAB PO DAILY for 50-850MG, TAB 08/08/18 Terbinafine Hcl* (Terbinafine Hcl*) 250 Mg Tablet, 250 MG PO BID, TAB 08/08/18 Metformin Hcl* (Metformin Hcl*) 1,000 Mg Tablet, 1000 MG PO BID 12/06/12 Current Medications IV Flush (NS 3 ml) 3 ml PER PROTOCOL IV ; Start 08/08/18 at 11:00 Ondansetron HCl (Zofran Inj) 4 mg Q6H PRN IV NAUSEA/VOMITING; Start 08/08/18 at 11:00 Aspirin (Aspirin) 81 mg DAILY PO Last administered on 08/12/18at 08:43; Admin Dose 81 MG; Start 08/09/18 at 09:00 Acetaminophen (Tylenol Tab) 650 mg Q6H PRN PO .PAIN 1-3 OR TEMP; Start 08/08/18 at 11:00 Acetaminophen/ Hydrocodone Bitart ([place] (5/325)) 1 tab Q6H PRN PO .PAIN 4-6; Start 08/08/18 at 11:00 Insulin Glargine (Lantus) 12 units DAILY@2000 SC Last administered on 08/11/18at 20:38; Admin Dose 12 UNITS; Start 08/08/18 at 20:00 Insulin Aspart (Novolog Insulin Pen) 4 unit WITH MEALS SC Last administered on 08/11/18at 17:52; Admin Dose 4 UNIT; Start 08/08/18 at 11:50 Insulin Aspart (Novolog Insulin Pen) NOVOLOG *MILD* ALGORITHM WITH MEALS BEDTIME SC Last administered on 08/12/18 08:37; Admin Dose 1 UNIT; Start 08/08/18 at 11:50 Miscellaneous Information 1 ea NOTE XX ; Start 08/08/18 at 11:30 Glucose (Glutose) 15 gm Q15M PRN PO DECREASED GLUCOSE; Start 08/08/18 at 11:30 Glucose (Glutose) 22.5 gm Q15M PRN PO DECREASED GLUCOSE; Start 08/08/18 at 11:30 Dextrose (D50w Syringe) 25 ml Q15M PRN IV DECREASED GLUCOSE; Start 08/08/18 at 11:30 Dextrose (D50w Syringe) 50 ml Q15M PRN IV DECREASED GLUCOSE; Start 08/08/18 at 11:30 Glucagon (Glucagen) 1 mg Q15M PRN IM DECREASED GLUCOSE; Start 08/08/18 at 11:30 Glucose (Glutose) 15 gm Q15M PRN BUCCAL DECREASED GLUCOSE; Start 08/08/18 at 11:30 Atorvastatin Calcium (Lipitor) 40 mg HS PO Last administered on 08/11/18at 20:39; Admin Dose 40 MG; Start 08/08/18 at 21:00 Pregabalin (Lyrica) 150 mg QHS PO Last administered on 08/11/18at 20:39; Admin Dose 150 MG; Start 08/08/18 at 21:00 Metoprolol Tartrate (Lopressor) 25 mg BID PO Last administered on 08/12/18 08:43; Admin Dose 25 MG; Start 08/09/18 at 21:00 Famotidine (Pepcid) 20 mg DAILY PO Last administered on 08/12/18 08:43; Admin Dose 20 MG; Start 08/12/18 at 09:00 Meds reviewed: Yes Allergies Coded Allergies: No Known Allergy (Unverified , 08/08/18) Allergies Reviewed: Yes Labs/Studies Labs Reviewed: Reviewed by anesthesiologist Result Diagram: 08/12/18 0629 08/12/18 0629 Laboratory Tests 5/22/19 06:29 Blood Bank Test 08/11/18 19:29 Antibody Screen NEGATIVE Blood Product Summary Counts Blood Type O POSITIVE Crossmatch Red Blood Cells test: N/A Studies: ECG Pre-procedure Exam Last vitals Vital Signs Date Temp Pulse Resp B/P (MAP) Pulse Ox O2 O2 Flow FiO2 Time Delivery Rate 08/12/18 98.0 88 18 106/68 97 Room Air 11:09 (81) Airway: Adequate mouth opening, Adequate thyromental dist Mallampati: Mallampati III Teeth: Normal Lung: Normal Heart: Normal ASA Physical Status ASA physical status: 4 Emergency: None Planned Anesthetic General/MAC: ETT, NG/OG Tube, A Line, CVP, PCWP, LIZ Planned Pain Management Parenteral pain med Pre-operative Attestations Prior to commencing anesthesia and surgery, the patient was re-evaluated, there was verification of: *The patient's identity *The results of appropriate recent lab work and preoperative vital signs *The above evaluation not changing prior to induction *Anesthetic plan, risk benefits, alternative and complications discussed with patient/family; questions answered; patient/family understands, accepts and wishes to proceed. MARIA LUISA BROWN MD August 12, 2018 12:30
[2018-08-12] MEDS ORDERED: NITROGLYCERIN 50 MG/D5W 250 ML BTL ONE (12:40)
[2018-08-12] MEDS ORDERED: DOPamine-D5W 1.6 MG/ML 250 ML ONE (12:40)
[2018-08-12] MEDS ORDERED: MIDAZOLAM 5 ML ONE ×2 (12:43→14:26)
[2018-08-12] MEDS ORDERED: HEPARIN 1000 UNITS/ML 10 ML INJ ONE ×4 (12:48→14:31)
[2018-08-12] MEDS ORDERED: POTASSIUM CHLORIDE 40 MEQ INJ ONE (12:48)
[2018-08-12] MEDS ORDERED: CA CHLORIDE 10% 10 ML SYRINGE ONE (12:49)
[2018-08-12] MEDS ORDERED: LIDOCAINE 100 MG SYRINGE ONE (12:49)
[2018-08-12] MEDS ORDERED: MAGNESIUM SULFATE (MG) 50% 10 ML INJ ONE (12:49)
[2018-08-12] MEDS ORDERED: MANNITOL 20% 500 ML ONE (12:49)
[2018-08-12] MEDS ORDERED: ALBUMIN HUMAN 25% 200 ML ONE (12:50)
[2018-08-12] MEDS ORDERED: PHENYLephrine 10 MG INJ ONE (12:50)
[2018-08-12] MEDS ORDERED: VANCOMYCIN 1 GM INJ ONE (12:51)
[2018-08-12] MEDS ORDERED: PAPAVERINE 60 MG INJ ONE (12:52)
--- NOTE | 2018-08-12 12:57 | HPN ---
Date/Time of Note Date/Time of Note DATE: 08/12/18 TIME: 12:56 Interval H&P Admission Note Pt. seen H&P reviewed: No system changes SHARLA DOWNS MD August 12, 2018 12:56
[2018-08-12] MEDS ORDERED: morphine 2 MG INJ IV PRN ×2 (13:00)
[2018-08-12] MEDS ORDERED: LORAZEPAM 2 MG INJ IV PRN (13:00)
[2018-08-12] MEDS ORDERED: FENTAnyl 50 MCG/ML VIAL IV PRN ×2 (13:00)
[2018-08-12] MEDS ORDERED: MIDAZOLAM 1 MG/ML 2 ML INJ IV PRN (13:00)
[2018-08-12] MEDS ORDERED: ONDANSETRON 4 MG INJ IV PRN (13:00)
[2018-08-12] MEDS ORDERED: DIPHENHYDRAMINE 50 MG INJ IV PRN (13:00)
[2018-08-12] MEDS ORDERED: NA BICARBONATE 8.4% 50 ML SYG ONE (13:14)
[2018-08-12] MEDS ORDERED: AMINOCAPROIC ACID 5 GM INJ ONE ×4 (13:14→15:00)
[2018-08-12] MEDS ORDERED: CEFAZOLIN 1 GM INJ ONE ×2 (13:47→15:00)
[2018-08-12] MEDS ORDERED: FUROSEMIDE 20 MG INJ ONE (14:28)
[2018-08-12] MEDS ORDERED: PROTAMINE 250 MG INJ ONE (15:35)
[2018-08-12] MEDS ORDERED: LIDOCAINE 2% (SDV) 5 ML INJ ONE (16:54)
[2018-08-12] MEDS ORDERED: ROCURONIUM 50 MG INJ ONE (16:54)
[2018-08-12] MEDS ORDERED: ETOMIDATE 20 MG INJ ONE (16:54)
[2018-08-12] MEDS: ACCU-CHEK XX SCH ×7 (17:00→23:00)
[2018-08-12] MEDS ORDERED: DEXTROSE 50% 50 ML SYRINGE IV PRN ×2 (17:00)
[2018-08-12] MEDS ORDERED: INSULIN HUMAN REGULAR 100 UNIT in SOD CHLORIDE 0.9% 99 ML IV SCH (17:00)
--- NOTE | 2018-08-12 17:20 | SIPON ---
Date/Time of Note Date/Time of Note DATE: 08/12/18 TIME: 17:15 Operative Report Preoperative Diagnosis NSTEMI, CAD Postoperative Diagnosis SAME Operation/Procedure Performed CABGX5, BOOTHE TO LAD, SVG TO DISTAL CX, SVG TO OM1 TO OM2 TO OM3 Surgeon see signature line freezer assistant IRMA CASAREZ MD Second assist: BLANK GARG Anesthesia: general Estimated blood loss: 250 - 300 ml's Transfusion Required none Specimen NONE Grafts/Implants none Complications none SHARLA DOWNS MD August 12, 2018 17:20
--- NOTE | 2018-08-12 17:23 | CONS ---
Assessment/Plan Assessment/Plan Assessment/Plan (Daily) 53 year old male with severe 3V CAD. I explained to patient and son over the phone the risks, benefits and alternatives of surgery. The risks are but not limited to bleeding, infection. stroke, MD, renal and respiratory failure and . He understood and consented. Carotids ordered and CABG scheduled. Consultation Date/Type/Reason Admit Date/Time August 08, 2018 at 07:45 Date of Consultation: August 11, [address] SURGERY Reason for Consultation EVAL FOR CABG Requesting Provider: LIBBY DEL VALLE Date/Time of Note DATE: 08/12/18 TIME: 17:20 Hx of Present Illness 53 year old male with DM admitted with NSTEMI, previous pci of LAD. Cath shows severe 3v CAD. We are asked to see for CABG Constitutional: No no complaints, No improved, No chills, No diaphoresis, No disoriented, No febrile, No poor po, No requiring IVF, No requiring O2, No other Eyes: No no complaints, No pain, No discharge, No redness, No visual change, No other ENT: No no complaints, No bleeding, No pain, No congestion, No discharge, No dysphagia, No sore throat, No other Respiratory: shortness of breath Cardiovascular: chest pain Gastrointestinal: No no complaints, No pain, No blood, No constipation, No decreased appetite, No diarrhea, No flatus, No nausea, No passing stool, No vomiting, No other Genitourinary: No no complaints, No bleeding, No dysuria, No discharge, No flank pain, No hematuria, No other Musculoskeletal: No no complaints, No back pain, No bone/joint pain, No neck pain, No restricted range of motion, No swelling, No other Skin: No no complaints, No bruising, No erythema, No laceration, No pruritis, No rash, No skin lesions, No other Neurologic: No no complaints, No confusion, No dizziness, No focal-weakness, No headache, No syncope, No seizure, No other Endocrine: No no complaints, No polyuria, No polydypsia, No dry skin, No temp intolerance, No other Lymphatic: No no complaints, No adenopathy, No tender nodes, No lymphadema, No other Psychological: No no complaints, No nl mood/affect, No anxiety, No confusion, No depression, No suicidal, No other Immunologic: No no complaints, No immunodeficiency, No pruritis, No rhinitis, No urticaria, No other Past Medical History Medical History: angina, coronary artery disease, diabetes, high cholesterol, hypertension Home Meds Reported Medications [[Hidrosmina 200MG ] No Conflict Check, 200 MG DAILY for FROM [place] 08/08/18 Insulin Lispro (Humalog Kwikpen U-100) 100 Unit/1 Ml Insuln.pen, 20 UNIT SQ BID WITH MEALS, EA 08/08/18 Pregabalin* (Lyrica*) 150 Mg Capsule, 150 MG PO QHS, CAP 08/08/18 Sitagliptin Phos-Metformin Hcl (Janumet XR) 50-500 Mg Tbmp.24hr, 1 TAB PO DAILY for 50-850MG, TAB 08/08/18 Terbinafine Hcl* (Terbinafine Hcl*) 250 Mg Tablet, 250 MG PO BID, TAB 08/08/18 Metformin Hcl* (Metformin Hcl*) 1,000 Mg Tablet, 1000 MG PO BID 12/06/12 Medications Current Medications Diagnostic Test (Pha) (Accu-Chek) 1 ea Q1H XX ; Start 08/12/18 at 17:00 Insulin Human Regular 100 unit/ Sodium Chloride 100 ml @ 0 mls/hr PER PROTOCOL IV ; Start 08/12/18 at 17:00 Miscellaneous Information (* Miscellaneous Pharmacy Order) Treatment of Hypoglycemia: 1.BG 51... Per protocol XX ; Start 08/12/18 at 17:00 Dextrose (D50w Syringe) 25 ml Q15M PRN IV .DECREASED GLUCOSE; Start 08/12/18 at 17:00 Dextrose (D50w Syringe) 50 ml Q15M PRN IV .DECREASED GLUCOSE; Start 08/12/18 at 17:00 Potassium Chloride 40 meq/ Calcium Chloride 1 gm/Dextrose/ Sodium Chloride 1,030 ml @ 60 mls/hr [id number] IV ; Start 08/12/18 at 17:01; Status UNV Cefazolin Sodium 50 ml @ 100 mls/hr Q8H IVPB ; Start 08/12/18 at 17:30; Stop 08/13/18 at 09:59; Status UNV Hydromorphone HCl (Dilaudid) 0.2 mg Q15M PRN IV PAIN LEVEL 1-5; Start 08/12/18 at 17:30; Status UNV Hydromorphone HCl (Dilaudid) 0.4 mg Q15M PRN IV PAIN LEVEL 6-10; Start 08/12/18 at 17:30; Status UNV Oxycodone/ Acetaminophen (Percocet (5/ 325)) 1 tab Q3H PRN PO PAIN LEVEL 1-5; Start 08/12/18 at 17:30; Status UNV Oxycodone/ Acetaminophen (Percocet (5/ 325)) 2 tab Q3H PRN PO PAIN LEVEL 6-10; Start 08/12/18 at 17:30; Status UNV Ondansetron HCl (Zofran Inj) 4 mg Q6H PRN IV NAUSEA AND/OR VOMITING; Start 08/12/18 at 17:30; Status UNV Famotidine (Pepcid Iv) 20 mg BID@08,20 IV ; Start 08/12/18 at 20:00; Status UNV Famotidine (Pepcid) 20 mg BID PO ; Start 08/12/18 at 21:00; Status UNV Aspirin (Aspirin) 325 mg DAILY PO ; Start 08/13/18 at 09:00; Status UNV Acetaminophen (Tylenol Tab) 650 mg Q3H PRN PO ELEVATED TEMPERATURE; Start 08/12/18 at 17:30; Status UNV Potassium Chloride 50 ml @ 50 mls/hr SEE DIRECTION PRN IVPB K+ LEVEL; Start 08/12/18 at 17:30; Status UNV Magnesium Sulfate/ Dextrose 100 ml @ 100 mls/hr PRN PRN IVPB PENDING LAB VALUE; Start 08/12/18 at 17:30; Status UNV Nitroglycerin/ Dextrose 250 ml @ 1.5 mls/hr PER PROTOCOL IV ; Start 08/12/18 at 17:30; Status UNV Dopamine HCl/ Dextrose 250 ml @ 6.045 mls/ hr PER PROTOCOL IV ; Start 08/12/18 at 17:30; Status UNV Atorvastatin Calcium (Lipitor) 40 mg HS GTB ; Start 08/12/18 at 21:00; Status UNV Enoxaparin Sodium (Lovenox) 40 mg DAILY SC ; Start 08/13/18 at 09:00; Status UNV Allergies: Coded Allergies: No Known Allergy (Unverified , 5/18/19) Past Surgical History Past Surgical Hx: angioplasty Family History Significant Family History: no pertinent family hx Social History Alcohol Use: occasionally Smoking Status: Never smoker Drug Use: none Exam/Review of Systems Exam Vitals Vital Signs Date Temp Pulse Resp B/P (MAP) Pulse Ox O2 O2 Flow FiO2 Time Delivery Rate 08/12/18 98.1 60 23 110/69 93 Room Air 12:30 (83) Intake and Output 08/11/18 08/11/18 08/12/18 1515:00 23:00 07:00 IntakeIntake Total 900 ml 500 ml OutputOutput Total 3 ml BalanceBalance 897 ml 500 ml Constitutional: alert, oriented, well developed Psych: no complaints, nl mood/affect Head: normocephalic, atraumatic ENMT: nl external ears & nose, nl lips & teeth, nl nasal mucosa & septum Neck: supple, non-tender Respiratory: clear to auscultation, normal air movement Cardiovascular: regular rate and rhythm, nl pulses Gastrointestinal: soft, nl liver, spleen, non-tender Musculoskeletal: nl extremities to inspection, nl gait and stance Extremities: normal pulses Neurological: CAGE CLERK II-XII intact, nl mental status, nl speech, nl strength Skin: nl turgor; No rash or lesions Lymph: nl lymph nodes Results Result Diagram: 08/12/18 0629 08/12/18 0629 Results 24hrs Laboratory Tests Test 08/11/18 17:43 08/11/18 20:35 08/12/18 02:45 08/12/18 03:03 Bedside Glucose 139 199 151 143 Test 08/12/18 06:29 08/12/18 07:56 08/12/18 11:46 White Blood Count 7.3 Red Blood Count 5.21 Hemoglobin 15.1 Hematocrit 44.7 Mean Corpuscular 85.8 Volume Mean Corpuscular 29.0 Hemoglobin Mean Corpuscular 33.8 Hemoglobin Concent Red Cell 13.6 Distribution Width Platelet Count 235 Mean Platelet Volume 10.1 Immature 0.300 Granulocytes % Neutrophils % 60.5 Lymphocytes % 26.4 Monocytes % 8.0 Eosinophils % 4.1 Basophils % 0.7 Nucleated Red Blood 0.0 Cells % Immature 0.020 Granulocytes # Neutrophils # 4.4 Lymphocytes # 1.9 Monocytes # 0.6 Eosinophils # 0.3 Basophils # 0.1 Nucleated Red Blood 0.0 Cells # Sodium Level 139 Potassium Level 4.1 Chloride Level 104 Carbon Dioxide Level 31 Anion Gap 4 L Blood Urea Nitrogen 19 Creatinine 0.62 Est Glomerular > 60 Filtrat Rate mL/min Glucose Level 177 Calcium Level 9.1 Magnesium Level 1.9 Thyroid Stimulating 3.520 Hormone (TSH) Bedside Glucose 161 134 Medications Medication Current Medications Diagnostic Test (Pha) (Accu-Chek) 1 ea Q1H XX ; Start 08/12/18 at 17:00 Insulin Human Regular 100 unit/ Sodium Chloride 100 ml @ 0 mls/hr PER PROTOCOL IV ; Start 08/12/18 at 17:00 Miscellaneous Information (* Miscellaneous Pharmacy Order) Treatment of Hypoglycemia: 1.BG 51... Per protocol XX ; Start 08/12/18 at 17:00 Dextrose (D50w Syringe) 25 ml Q15M PRN IV .DECREASED GLUCOSE; Start 08/12/18 at 17:00 Dextrose (D50w Syringe) 50 ml Q15M PRN IV .DECREASED GLUCOSE; Start 08/12/18 at 17:00 Potassium Chloride 40 meq/ Calcium Chloride 1 gm/Dextrose/ Sodium Chloride 1,030 ml @ 60 mls/hr [id number] IV ; Start 08/12/18 at 17:01; Status UNV Cefazolin Sodium 50 ml @ 100 mls/hr Q8H IVPB ; Start 08/12/18 at 17:30; Stop 08/13/18 at 09:59; Status UNV Hydromorphone HCl (Dilaudid) 0.2 mg Q15M PRN IV PAIN LEVEL 1-5; Start 08/12/18 at 17:30; Status UNV Hydromorphone HCl (Dilaudid) 0.4 mg Q15M PRN IV PAIN LEVEL 6-10; Start 08/12/18 at 17:30; Status UNV Oxycodone/ Acetaminophen (Percocet (5/ 325)) 1 tab Q3H PRN PO PAIN LEVEL 1-5; Start 08/12/18 at 17:30; Status UNV Oxycodone/ Acetaminophen (Percocet (5/ 325)) 2 tab Q3H PRN PO PAIN LEVEL 6-10; Start 08/12/18 at 17:30; Status UNV Ondansetron HCl (Zofran Inj) 4 mg Q6H PRN IV NAUSEA AND/OR VOMITING; Start 08/12/18 at 17:30; Status UNV Famotidine (Pepcid Iv) 20 mg BID@08,20 IV ; Start 08/12/18 at 20:00; Status UNV Famotidine (Pepcid) 20 mg BID PO ; Start 08/12/18 at 21:00; Status UNV Aspirin (Aspirin) 325 mg DAILY PO ; Start 08/13/18 at 09:00; Status UNV Acetaminophen (Tylenol Tab) 650 mg Q3H PRN PO ELEVATED TEMPERATURE; Start 08/12/18 at 17:30; Status UNV Potassium Chloride 50 ml @ 50 mls/hr SEE DIRECTION PRN IVPB K+ LEVEL; Start 08/12/18 at 17:30; Status UNV Magnesium Sulfate/ Dextrose 100 ml @ 100 mls/hr PRN PRN IVPB PENDING LAB VALUE; Start 08/12/18 at 17:30; Status UNV Nitroglycerin/ Dextrose 250 ml @ 1.5 mls/hr PER PROTOCOL IV ; Start 08/12/18 at 17:30; Status UNV Dopamine HCl/ Dextrose 250 ml @ 6.045 mls/ hr PER PROTOCOL IV ; Start 08/12/18 at 17:30; Status UNV Atorvastatin Calcium (Lipitor) 40 mg HS GTB ; Start 08/12/18 at 21:00; Status UNV Enoxaparin Sodium (Lovenox) 40 mg DAILY SC ; Start 08/13/18 at 09:00; Status UNV SHARLA DOWNS MD August 12, 2018 17:23
[2018-08-12] MEDS ORDERED: OXYCODONE/ACETAMINOPHEN (5/325) TAB PO PRN (17:30)
[2018-08-12] MEDS ORDERED: HYDROmorphONE 0.5 MG/0.5 ML SYG IV PRN (17:30)
[2018-08-12] MEDS ORDERED: ACETAMINOPHEN 325 MG TAB PO PRN (17:30)
[2018-08-12] MEDS: CEFAZOLIN 1 GM/50 ML (PMX) 50 ML IVPB SCH (18:38)
[2018-08-12] MEDS: POTASSIUM CHLORIDE 40 MEQ, CALCIUM CHLORIDE 10% 1 GM in DEXTROSE 5%-0.225% NACL 1,000 ML IV SCH (18:38)
[2018-08-12] MEDS: POTASSIUM CHLORIDE 50 ML IVPB PRN ×2 (19:26→22:46)
[2018-08-12] MEDS: HYDROmorphONE 0.5 MG/0.5 ML SYG IV PRN ×2 (19:52→23:14)
[2018-08-12] MEDS: FAMOTIDINE 20 MG INJ IV SCH (20:04)
--- NOTE | 2018-08-12 20:30 | OPR ---
DATE OF OPERATION: 08/12/2018 PREOPERATIVE DIAGNOSIS: Non-ST elevation myocardial infarction, 3-vessel coronary artery disease. POSTOPERATIVE DIAGNOSIS: Non-ST elevation myocardial infarction, 3-vessel coronary artery disease. PROCEDURE: CABG x5, BOOTHE to LAD, SVG to distal circumflex artery, SVG to OM1 sequenced to OM2 sequen ethan to OM 3, endoscopic vein harvesting and epiaortic scanning of the ascending aorta. SURGEON: Sharla Ley MD GUN TESTER: Hiro Lewis MD SECOND COURT CRIER: DAVEY North ANESTHESIOLOGIST: Boo Simmons MD TYPE OF ANESTHESIA: General endotracheal. COMPLICATIONS: None. FINDINGS: LV function was about 40% to 45% preoperatively. After revascularization, it was improved with 55% function. The LAD was diffusely diseased. We were able to probe proximally and distally i n the distal part of the LAD where we made our arteriotomy. It was a 1.5 mm vessel. The flow in the BOOTHE to LAD was 22 mL per minute. The OM1, 2 and 3 were all about 1.75 mm vessel and the sequence g raft had a flow of 72 mL per minute. His distal circumflex was very calcified, a 1.5 mm vessel and h ad a flow of 19 mL per minute. The vein was of good quality. No atheromas were noted in the ascendi ng aorta. INDICATION: The patient is a 53-year-old male with history of coronary artery disease, previous PCI admitted with a non-STEMI, was taken to the laboratory inspector and found to have severe 3-vessel coronary arter y disease. He was referred for urgent CABG. Risks, benefits and alternatives were explained to the patient who understood and consented. DESCRIPTION OF PROCEDURE: The patient was brought to the operating room where he was placed in supin e position. He was induced and underwent general endotracheal intubation without complications. He then had lines placed and antibiotics were given. He was prepped and draped in the usual sterile fas hion. A median sternotomy was made simultaneous with endoscopic vein harvesting from the right lower extremity. Heparin was given and the BOOTHE was taken down using clips and cautery. Pericardial well was established. The ascending aorta was scanned. There are no atheromas or plaques noted. We kenneth ethna a pursestring in the ascending aorta followed by the right atrium. The ascending aorta was cannu lated followed by a 2-stage venous cannula. Once all our lines were in place, we commenced cardiopul monary bypass. We placed a crossclamp and arrested the heart using antegrade cardioplegia. Once the heart was arrested, we identified the distal circumflex artery. Proximally, it was calcified. We w ere able to find a soft spot. We made an arteriotomy, extended with Rivera scissors and anastomosed o ur vein graft using 7-0 Prolene in running fashion in end-to-side manner. Vein grafts were cut to le ngth. We then identified OM1, 2 and 3. We made arteriotomy in OM3 and anastomosed our vein graft us ing a 7-0 Prolene in running fashion in end-to-side manner. OM 2 and 1 were anastomosed in a side-to -side fashion using 7-0 Prolene in running fashion. We then identified the distal LAD, made arteriot kelsy, extended with Rivera scissors and we were able to probe with a 1 mm probe proximally and distally . We anastomosed our BOOTHE using 7-0 Prolene in a running fashion in end-to-side manner. Once this w as done, we rewarmed the patient. We gave warm blood and then removed the crossclamp and cardioverte d him back to normal sinus rhythm and placed a ventricular pacing wire. We placed a partial clamp on the ascending aorta, made 2 aortotomies and anastomosed our vein graft using 5-0 Prolene in running fashion in end-to-side manner. The partial clamp was removed. The vein grafts were deaired. Distal hemostasis was achieved. We then began ventilating and weaning the patient off cardiopulmonary bypa ss without difficulty. Once he was off bypass, we gave protamine. We de-lined the patient. We plac ed a left pleural tube and anterior mediastinal tube. We then achieved hemostasis and closed the laurel st using interrupted cables followed by closure of the fascia using 0 Vicryl followed by closure of s kin using 4-0 Monocryl in subcuticular fashion. The lower extremity incisions were closed using 3-0 Vicryl for the deep layer and 4-0 Monocryl for the skin. Dressings were applied. The patient was br ought to the ICU in critical but stable condition. Dictated By: SHARLA TEAGUE/LUL Conf#: [id number] DID#: [id number] CC: LIBBY DEL VALLE MD; MERLY CLEANING MD;*End*
[2018-08-12] MEDS: FAMOTIDINE 20 MG TAB PO SCH (21:00)
[2018-08-12] MEDS: ATORVASTATIN 40 MG TAB GTB SCH (21:00)
[2018-08-12] MEDS: ONDANSETRON 4 MG INJ IV PRN (23:04)
[2018-08-13] VITALS (27 sets, daily range): BP systolic 93–122; BP diastolic 51–73; PULSE 77–100; RESP 13–28; TEMP 99.8–101.2
[2018-08-13] MEDS: ACCU-CHEK XX SCH ×18 (01:00→17:15)
[2018-08-13] MEDS: CEFAZOLIN 1 GM/50 ML (PMX) 50 ML IVPB SCH ×2 (01:28→10:45)
[2018-08-13] MEDS: POTASSIUM CHLORIDE 50 ML IVPB PRN ×2 (02:56→03:42)
[2018-08-13] MEDS: OXYCODONE/ACETAMINOPHEN (5/325) TAB PO PRN ×2 (02:57→05:42)
[2018-08-13] MEDS: ONDANSETRON 4 MG INJ IV PRN (05:41)
[2018-08-13] MEDS: MAGNESIUM SULFATE 1 GM/D5W 100 ML IVPB PRN ×2 (07:38→09:01)
[2018-08-13] MEDS: FAMOTIDINE 20 MG INJ IV SCH (08:30)
[2018-08-13] MEDS: ASPIRIN 325 MG TAB PO SCH (08:30)
[2018-08-13] MEDS: FAMOTIDINE 20 MG TAB PO SCH ×2 (09:00→20:45)
[2018-08-13] MEDS: ENOXAPARIN 40 MG/0.4 ML SYG SC SCH (09:01)
[2018-08-13] MEDS ORDERED: KETOROLAC 30 MG INJ IV STA (09:12)
--- NOTE | 2018-08-13 09:15 | CONS ---
Assessment/Plan Assessment/Plan Hospital Course (Demo Recall) Pericarditis: EKG and fevers post op consistent with pericarditis. s/p CABG 08/12/2018: BOOTHE to LAD, SVG to distal circumflex artery, SVG to OM1 sequenced to OM2 sequenced to OM 3 NSTEMI: trop peak 5.9. EF preserved. Cath 08/10 showed multivessel CAD. Coronary artery disease, status post PCI (2007) Hypertension Dyslipidemia Diabetes mellitus - HgbA1c 11.3 -toradol 30 mg IV x 1 dose. Has nausea and unable to tolerate PO. Once able, can give PO NSAIDs -continue aspirin 325 mg daily -continue atorvastatin 40mg daily -restart metoprolol 25mg BID when BP stable Consultation Date/Type/Reason Admit Date/Time August 08, 2018 at 07:45 Initial Consult Date Type of Consult Cardiology Requesting Provider: LIBBY DEL VALLE Date/Time of Note DATE: 08/13/18 TIME: 09:13 24 HR Interval Summary Free Text/Dictation s/p CABG. Extubated overnight. Doing well. Has chest pain at surgical site and with inspiration. Febrile all night to 101. EKG shows diffuse mild ST elevations consistent with pericarditis Exam/Review of Systems Vital Signs Vitals Vital Signs Date Temp Pulse Resp B/P (MAP) Pulse Ox O2 O2 Flow FiO2 Time Delivery Rate 08/13/18 100.4 89 20 106/52 96 08:00 (70) 08/13/18 Nasal 3.0 08:00 Cannula 08/12/18 50 23:41 Intake and Output 08/12/18 08/12/18 08/13/18 1515:00 23:00 07:00 IntakeIntake Total 2330.0 ml 760.0 ml OutputOutput Total 3664 ml 829 ml BalanceBalance -1334.0 ml -69.0 ml Exam Constitutional: alert, oriented Psych: no complaints, nl mood/affect Head: normocephalic, atraumatic Neck: supple; No jvd Respiratory: diminished breath sounds; No clear to auscultation Cardiovascular: regular rate and rhythm; No edema, No systolic murmur Gastrointestinal: soft, non-tender; No distended Neurological: nl mental status, nl speech Labs Result Diagram: 08/13/18 0430 08/13/18 0430 Results 24hrs Laboratory Tests Test 08/12/18 11:46 08/12/18 17:25 08/12/18 17:37 08/12/18 17:52 Bedside Glucose 134 123 125 White Blood 8.8 # Count Red Blood Count 3.90 #L Hemoglobin 11.4 #L Hematocrit 33.3 #L Mean Corpuscular 85.4 Volume Mean Corpuscular 29.2 Hemoglobin Mean Corpuscular 34.2 Hemoglobin Dyana nt Red Cell 13.5 Distribution Width Platelet Count 130 #L Mean Platelet 10.4 Volume Immature 0.300 Granulocytes % Neutrophils % 75.5 Lymphocytes % 18.2 Monocytes % 3.1 Eosinophils % 2.6 Basophils % 0.3 Nucleated Red 0.0 Blood Cells % Immature 0.030 Granulocytes # Neutrophils # 6.7 Lymphocytes # 1.6 Monocytes # 0.3 Eosinophils # 0.2 Basophils # 0.0 Nucleated Red 0.0 Blood Cells # Prothrombin Time 16.7 H Prothrombin Time 1.3 Ratio INR 1.34 International Normalized Ratio Activated 39.0 H Partial Thrombop last Time Sodium Level 141 Potassium Level 3.4 L Chloride Level 108 Carbon Dioxide 28 Level Anion Gap 5 Blood Urea 14 Nitrogen Creatinine 0.60 L Est Glomerular > 60 Filtrat Rate mL/min Glucose Level 128 # Calcium Level 9.1 Magnesium Level 2.7 H Test 08/12/18 18:25 08/12/18 19:17 08/12/18 20:23 08/12/18 22:30 Blood Gas BLMV Specimen Source Arterial Blood 08/12/2018 6:17: Date Drawn 08 PM Arterial Blood 7.364 pH (Temp corrected) Arterial Blood 42.8 pCO2 (Temp correct) Arterial Blood 132.9 H pO2 (Temp corrected) Arterial Blood 23.9 HCO3 Arterial Blood -1.5 Base Excess Arterial Blood 97.8 Oxygen Saturatio n Sanya Test N/A Arterial Blood A-Line Gas Puncture Site Arterial 0.3 Blood Carboxyhem oglobin Arterial Blood 0.3 Methemoglobin Mixed Venous 7.325 Blood pH Mixed Venous 43.6 Blood PCO2 Mixed Venous 46.4 H Blood PO2 Mixed Venous 22.2 L Blood HCO3 Mixed Venous -3.7 Blood Base Excess Mixed Venous 78.5 H Blood O2 Saturation Mixed Venous 12.4 Blood Total Hemoglobin Mixed Venous 78.0 Blood Oxyhemoglo bin Mixed Venous 0.3 Bld Carboxyhemog lobin Mixed Venous 0.3 Blood Methemoglo bin Blood Gas A-a O2 405.8 Differential Oxyhemoglobin 97.2 Percent Blood Gas 37.0 Temperature Blood Gas 12.0 Respiration Rate Blood Gas Actual 12 Respiration Rate Blood Gas VENT - AC Modality FiO2 70.0 Blood Gas Tidal 550.0 Volume Blood Gas Low 5.0 PEEP Setting Blood Gas FRANCESCA EVANS Critical Value Read Back Blood Gas EDWIN SANZ Notified Whom Blood Gas 08/12/2018 6:34: Notified Time 48 PM Bedside Glucose 154 189 227 H Test 08/12/18 23:46 08/13/18 00:28 08/13/18 00:30 08/13/18 00:51 Bedside Glucose 221 H 188 Blood Gas Blood arterial Specimen Source Arterial Blood 08/13/2018 12:30 Date Drawn :05 AM Arterial Blood 7.438 pH (Temp corrected) Arterial Blood 34.8 L pCO2 (Temp correct) Arterial Blood 125.0 H pO2 (Temp corrected) Arterial Blood 23.0 HCO3 Arterial Blood -0.7 Base Excess Arterial Blood 97.9 Oxygen Saturatio n Sanya Test N/A Arterial Blood A-Line Gas Puncture Site Arterial 0.3 Blood Carboxyhem oglobin Arterial Blood 0.2 Methemoglobin Blood Gas A-a O2 156.3 H Differential Oxyhemoglobin 97.4 Percent Blood Gas 37.0 Temperature Blood Gas VENT - CPAP Modality FiO2 45.0 Blood Gas Low 0 PEEP Setting Blood Gas TN Notified Whom Blood Gas 08/13/2018 12:45 Notified Time :42 AM White Blood 12.0 #H Count Red Blood Count 3.72 L Hemoglobin 10.9 L Hematocrit 31.7 L Mean Corpuscular 85.2 Volume Mean Corpuscular 29.3 Hemoglobin Mean Corpuscular 34.4 Hemoglobin Dyana nt Red Cell 13.6 Distribution Width Platelet Count 166 # Mean Platelet 10.6 H Volume Immature 0.300 Granulocytes % Neutrophils % 83.2 H Lymphocytes % 6.7 L Monocytes % 9.3 Eosinophils % 0.2 Basophils % 0.3 Nucleated Red 0.0 Blood Cells % Immature 0.040 H Granulocytes # Neutrophils # 10.0 H Lymphocytes # 0.8 Monocytes # 1.1 H Eosinophils # 0.0 Basophils # 0.0 Nucleated Red 0.0 Blood Cells # Sodium Level 144 Potassium Level 4.1 Chloride Level 111 H Carbon Dioxide 24 Level Anion Gap 9 Blood Urea 16 Nitrogen Creatinine 0.71 Est Glomerular > 60 Filtrat Rate mL/min Glucose Level 193 Calcium Level 8.8 Test 08/13/18 01:33 08/13/18 02:27 08/13/18 04:30 08/13/18 04:55 Bedside Glucose 201 197 194 White Blood 10.4 Count Red Blood Count 3.76 L Hemoglobin 11.1 L Hematocrit 32.2 L Mean Corpuscular 85.6 Volume Mean Corpuscular 29.5 Hemoglobin Mean Corpuscular 34.5 Hemoglobin Dyana nt Red Cell 13.9 Distribution Width Platelet Count 172 Mean Platelet 10.7 H Volume Immature 0.400 Granulocytes % Neutrophils % 85.2 H Lymphocytes % 5.5 L Monocytes % 8.7 Eosinophils % 0.0 Basophils % 0.2 Nucleated Red 0.0 Blood Cells % Immature 0.040 H Granulocytes # Neutrophils # 8.9 H Lymphocytes # 0.6 L Monocytes # 0.9 Eosinophils # 0.0 Basophils # 0.0 Nucleated Red 0.0 Blood Cells # Prothrombin Time 14.6 Prothrombin Time 1.1 Ratio INR 1.13 International Normalized Ratio Activated 40.5 H Partial Thrombop last Time Sodium Level 142 Potassium Level 4.6 Chloride Level 110 Carbon Dioxide 26 Level Anion Gap 6 Blood Urea 16 Nitrogen Creatinine 0.67 Est Glomerular > 60 Filtrat Rate mL/min Glucose Level 188 Calcium Level 8.9 Phosphorus Level 4.1 Magnesium Level 1.8 Total Bilirubin 0.5 Direct Bilirubin 0.00 Indirect 0.5 Bilirubin Aspartate Amino 59 H Transf (AST/SGOT ) Alanine 47 Aminotransferase (ALT/SGPT) Alkaline 51 Phosphatase Total Protein 6.1 Albumin 3.5 Globulin 2.60 Albumin/Globulin 1.34 Ratio Test 08/13/18 06:11 08/13/18 07:51 Bedside Glucose 214 181 Medications Medications Current Medications Diagnostic Test (Pha) (Accu-Chek) 1 ea Q1H XX Last administered on 08/13/18at 09:02; Admin Dose 1 EA; Start 08/12/18 at 17:00 Insulin Human Regular 100 unit/ Sodium Chloride 100 ml @ 0 mls/hr PER PROTOCOL IV Last administered on 08/12/18at 21:33; Admin Dose 3 MLS/HR; Start 08/12/18 at 17:00 Miscellaneous Information (* Miscellaneous Pharmacy Order) Treatment of Hypoglycemia: 1.BG 51... Per protocol XX ; Start 08/12/18 at 17:00 Dextrose (D50w Syringe) 25 ml Q15M PRN IV .DECREASED GLUCOSE; Start 08/12/18 at 17:00 Dextrose (D50w Syringe) 50 ml Q15M PRN IV .DECREASED GLUCOSE; Start 08/12/18 at 17:00 Potassium Chloride 40 meq/ Calcium Chloride 1 gm/Dextrose/ Sodium Chloride 1,030 ml @ 60 mls/hr [id number] IV Last administered on 08/12/18at 18:38; Admin Dose 60 MLS/HR; Start 08/12/18 at 17:01 Cefazolin Sodium 50 ml @ 100 mls/hr Q8H IVPB Last administered on 08/13/18at 01:28; Admin Dose 100 MLS/HR; Start 08/12/18 at 17:30; Stop 08/13/18 at 09:59 Hydromorphone HCl (Dilaudid) 0.2 mg Q15M PRN IV PAIN LEVEL 1-5; Start 08/12/18 at 17:30 Hydromorphone HCl (Dilaudid) 0.4 mg Q15M PRN IV PAIN LEVEL 6-10 Last administered on 08/12/18at 23:14; Admin Dose 0.4 MG; Start 08/12/18 at 17:30 Oxycodone/ Acetaminophen (Percocet (5/ 325)) 1 tab Q3H PRN PO PAIN LEVEL 1-5; Start 08/12/18 at 17:30 Oxycodone/ Acetaminophen (Percocet (5/ 325)) 2 tab Q3H PRN PO PAIN LEVEL 6-10 Last administered on 08/13/18at 05:42; Admin Dose 2 TAB; Start 08/12/18 at 17:30 Ondansetron HCl (Zofran Inj) 4 mg Q6H PRN IV NAUSEA AND/OR VOMITING Last admi nistered on 08/13/18at 05:41; Admin Dose 4 MG; Start 08/12/18 at 17:30 Famotidine (Pepcid Iv) 20 mg BID@08,20 IV Last administered on 08/13/18at 08:30; Admin Dose 20 MG; Start 08/12/18 at 20:00 Famotidine (Pepcid) 20 mg BID PO ; Start 08/12/18 at 21:00 Aspirin (Aspirin) 325 mg DAILY PO Last administered on 08/13/18 08:30; Admin Dose 325 MG; Start 08/13/18 at 09:00 Acetaminophen (Tylenol Tab) 650 mg Q3H PRN PO ELEVATED TEMPERATURE; Start 08/12/18 at 17:30 Potassium Chloride 50 ml @ 50 mls/hr SEE DIRECTION PRN IVPB K+ LEVEL Last administered on 08/13/18 03:42; Admin Dose 50 MLS/HR; Start 08/12/18 at 17:30 Magnesium Sulfate/ Dextrose 100 ml @ 100 mls/hr PRN PRN IVPB PENDING LAB VALUE Last administered on 08/13/18 09:01; Admin Dose 100 MLS/HR; Start 08/12/18 at 17:30 Nitroglycerin/ Dextrose 250 ml @ 1.5 mls/hr PER PROTOCOL IV Last administered on 08/12/18 18:30; Admin Dose 7.5 MLS/HR; Start 08/12/18 at 17:30 Dopamine HCl/ Dextrose 250 ml @ 6.045 mls/ hr PER PROTOCOL IV Last admi nistered on 08/12/18 18:29; Admin Dose 3.023 MLS/HR; Start 08/12/18 at 17:30 Atorvastatin Calcium (Lipitor) 40 mg HS GTB ; Start 08/12/18 at 21:00 Enoxaparin Sodium (Lovenox) 40 mg DAILY SC Last administered on 08/13/18 09:01; Admin Dose 40 MG; Start 08/13/18 at 09:00 LIBBY DEL VALLE August 13, 2018 09:15
[2018-08-13] MEDS: POTASSIUM CHLORIDE 40 MEQ, CALCIUM CHLORIDE 10% 1 GM in DEXTROSE 5%-0.225% NACL 1,000 ML IV SCH (12:14)
--- NOTE | 2018-08-13 17:19 | PN ---
Date/Time of Note Date/Time of Note DATE: 08/13/18 TIME: 17:18 Assessment/Plan Lines/Catheters IV Catheter Type (from Rust): Cordis Morgan in Place (from Rust): Yes Assessment/Plan Assessment/Plan sitting in chair. NSR. chest tube 300cc. pericarditis, lines and morgan removed Exam/Review of Systems Vital Signs Vitals Vital Signs Date Temp Pulse Resp B/P (MAP) Pulse Ox O2 O2 Flow FiO2 Time Delivery Rate 08/13/18 81 18 106/64 98 Nasal 3.0 17:00 (78) Cannula 08/13/18 99.0 16:00 08/12/18 50 23:41 Intake and Output 08/12/18 08/12/18 08/13/18 1515:00 23:00 07:00 IntakeIntake Total 2330.0 ml 760.0 ml OutputOutput Total 3664 ml 829 ml BalanceBalance -1334.0 ml -69.0 ml Results Result Diagram: 08/13/18 0430 08/13/18 0430 SHARLA DOWNS MD August 13, 2018 17:19
[2018-08-13] MEDS ORDERED: MAGNESIUM SULFATE 2 GM/50 ML 50 ML IVPB ONE (17:30)
[2018-08-13] MEDS ORDERED: GLUCOSE GEL 15 GRAM TUBE PO PRN ×2 (18:30)
[2018-08-13] MEDS ORDERED: GLUCOSE GEL 15 GRAM TUBE BUCCAL PRN (18:30)
[2018-08-13] MEDS ORDERED: DEXTROSE 50% 50 ML SYRINGE IV PRN ×2 (18:30)
[2018-08-13] MEDS ORDERED: GLUCAGON 1 MG INJ IM PRN (18:30)
[2018-08-13] MEDS: INSULIN ASPART [NOVOLOG] 3 ML PEN SC SCH ×3 (18:30→20:49)
[2018-08-13] MEDS: INSULIN GLARGINE [LANTus] (100 UNITS/ML) SYG SC SCH (20:40)
[2018-08-13] MEDS: ATORVASTATIN 40 MG TAB GTB SCH (20:45)
--- NOTE | 2018-08-13 21:46 | RADRPT ---
Vent Rate: 79 bpm RR Interval: 760 msec WI Interval: 158 msec QRS Duration: 91 msec QT Interval: 409 msec QTC Interval: 469 msec P-R-T [place]: 33 - 148 - 52 degrees Sinus rhythm...normal P axis, V-rate 50- 99 Probable right ventricular hypertrophy...prominent R or R' w/ RAD or MONTSE Inferior infarct, possibly acute (RCA)...ST>0.10mV in III > II Borderline ST elevation, anterior leads...ST >0.15mV in V1-V4 Probable RV involvement, suggest recording right precordial leads Electronically Signed By: Ivan Drummond
--- NOTE | 2018-08-13 21:48 | RADRPT ---
Vent Rate: 89 bpm RR Interval: 676 msec ME Interval: 144 msec QRS Duration: 136 msec QT Interval: 378 msec QTC Interval: 460 msec P-R-T [place]: 36 - -96 - 64 degrees Sinus rhythm...normal P axis, V-rate 50- 99 RBBB and LAFB...QRSd >120mS, axis(-40,240) Inferior infarct, acute...ST>0.10mV, T upright, II III aVF Probable anterolateral infarct, acute...ST >0.15mV, V2-V6,I,aVL Electronically Signed By: Ivan Drummond
--- NOTE | 2018-08-13 21:49 | RADRPT ---
Vent Rate: 96 bpm RR Interval: 624 msec RI Interval: 146 msec QRS Duration: 137 msec QT Interval: 376 msec QTC Interval: 476 msec P-R-T [place]: 34 - 90 - 45 degrees Sinus rhythm...normal P axis, V-rate 50- 99 Right bundle branch block...QRSd>120, terminal axis(90,270) ST elevation, consider inferior injury...ST >0.08mV, II III aVF Electronically Signed By: Ivan Drummond
--- NOTE | 2018-08-13 23:22 | PN ---
Date/Time of Note Date/Time of Note DATE: 08/13/18 TIME: 23:21 Assessment/Plan VTE Prophylaxis Risk score (from Ns)>0 risk: 9 SCD applied (from Ns): Yes SCD contraindicated: low risk/ambulating Pharmacological prophylaxis: LMWH Pharm contraindication: surgical contra Lines/Catheters IV Catheter Type (from Nrs): Cordis Urinary Cath still in place: Yes Reason Cath still needed: urinary retention Assessment/Plan Hospital Course A/P 1. NSTEMI; sp cath; multivessel dz; Pod 1 CABG. Rx pain 2. Chr CAD; ho pci 3. Dm II; ooc 11.0 4. Htn 5. DL; ooc 6. Nonadherence? 7. Dm neuropathy? S: /20 events noted no chest pain dyspnea. One episode of bradycardia yesterday afternoon. 22: No events 08/13: events noted O: vss PE no pallor/ jvd reg no mrg diminished bs+ nt nd no r r g no edema Result Diagram: 08/13/18 1731 08/13/18 0430 Results 24hrs Laboratory Tests Test 08/12/18 23:46 08/13/18 00:28 08/13/18 00:30 08/13/18 00:51 Bedside Glucose 221 H 188 Blood Gas Blood arterial Specimen Source Arterial Blood 08/13/2018 12:30: Date Drawn 05 AM Arterial Blood pH 7.438 (Temp corrected) Arterial Blood 34.8 L pCO2 (Temp correct) Arterial Blood 125.0 H pO2 (Temp corrected) Arterial Blood 23.0 HCO3 Arterial Blood -0.7 Base Excess Arterial Blood 97.9 Oxygen Saturation Asnya Test N/A Arterial Blood A-Line Gas Puncture Site Arterial 0.3 Blood Carboxyhemo globin Arterial Blood 0.2 Methemoglobin Blood Gas A-a O2 156.3 H Differential Oxyhemoglobin 97.4 Percent Blood Gas 37.0 Temperature Blood Gas VENT - CPAP Modality FiO2 45.0 Blood Gas Low 0 PEEP Setting Blood Gas DE Notified Whom Blood Gas 08/13/2018 12:45: Notified Time 42 AM White Blood Count 12.0 #H Red Blood Count 3.72 L Hemoglobin 10.9 L Hematocrit 31.7 L Mean Corpuscular 85.2 Volume Mean Corpuscular 29.3 Hemoglobin Mean Corpuscular 34.4 Hemoglobin Concen t Red Cell 13.6 Distribution Width Platelet Count 166 # Mean Platelet 10.6 H Volume Immature 0.300 Granulocytes % Neutrophils % 83.2 H Lymphocytes % 6.7 L Monocytes % 9.3 Eosinophils % 0.2 Basophils % 0.3 Nucleated Red 0.0 Blood Cells % Immature 0.040 H Granulocytes # Neutrophils # 10.0 H Lymphocytes # 0.8 Monocytes # 1.1 H Eosinophils # 0.0 Basophils # 0.0 Nucleated Red 0.0 Blood Cells # Sodium Level 144 Potassium Level 4.1 Chloride Level 111 H Carbon Dioxide 24 Level Anion Gap 9 Blood Urea 16 Nitrogen Creatinine 0.71 Est Glomerular > 60 Filtrat Rate mL/min Glucose Level 193 Calcium Level 8.8 Test 08/13/18 01:33 08/13/18 02:27 08/13/18 04:30 08/13/18 04:55 Bedside Glucose 201 197 194 White Blood Count 10.4 Red Blood Count 3.76 L Hemoglobin 11.1 L Hematocrit 32.2 L Mean Corpuscular 85.6 Volume Mean Corpuscular 29.5 Hemoglobin Mean Corpuscular 34.5 Hemoglobin Concen t Red Cell 13.9 Distribution Width Platelet Count 172 Mean Platelet 10.7 H Volume Immature 0.400 Granulocytes % Neutrophils % 85.2 H Lymphocytes % 5.5 L Monocytes % 8.7 Eosinophils % 0.0 Basophils % 0.2 Nucleated Red 0.0 Blood Cells % Immature 0.040 H Granulocytes # Neutrophils # 8.9 H Lymphocytes # 0.6 L Monocytes # 0.9 Eosinophils # 0.0 Basophils # 0.0 Nucleated Red 0.0 Blood Cells # Prothrombin Time 14.6 Prothrombin Time 1.1 Ratio INR International 1.13 Normalized Ratio Activated 40.5 H Partial Thrombopl ast Time Sodium Level 142 Potassium Level 4.6 Chloride Level 110 Carbon Dioxide 26 Level Anion Gap 6 Blood Urea 16 Nitrogen Creatinine 0.67 Est Glomerular > 60 Filtrat Rate mL/min Glucose Level 188 Calcium Level 8.9 Phosphorus Level 4.1 Magnesium Level 1.8 Total Bilirubin 0.5 Direct Bilirubin 0.00 Indirect 0.5 Bilirubin Aspartate Amino 59 H Transf (AST/SGOT) Alanine 47 Aminotransferase (ALT/SGPT) Alkaline 51 Phosphatase Total Protein 6.1 Albumin 3.5 Globulin 2.60 Albumin/Globulin 1.34 Ratio Test 08/13/18 06:11 08/13/18 07:51 08/13/18 09:03 08/13/18 10:44 Bedside Glucose 214 181 199 131 Test 08/13/18 12:12 08/13/18 13:11 08/13/18 14:57 08/13/18 17:15 Bedside Glucose 94 126 145 119 Test 08/13/18 17:31 08/13/18 20:34 Hematocrit 31.2 L Bedside Glucose 181 Exam/Review of Systems Exam Vitals Vital Signs Date Temp Pulse Resp B/P (MAP) Pulse Ox O2 O2 Flow FiO2 Time Delivery Rate 08/13/18 100 2.0 27 22:48 08/13/18 77 19 121/68 Nasal 21:00 (85) Cannula 08/13/18 98.2 20:00 Intake and Output 08/12/18 08/12/18 08/13/18 1515:00 23:00 07:00 IntakeIntake Total 2330.0 ml 760.0 ml OutputOutput Total 3664 ml 829 ml BalanceBalance -1334.0 ml -69.0 ml Results Results 24hrs Laboratory Tests Test 08/12/18 23:46 08/13/18 00:28 08/13/18 00:30 08/13/18 00:51 Bedside Glucose 221 H 188 Blood Gas Blood arterial Specimen Source Arterial Blood 08/13/2018 12:30: Date Drawn 05 AM Arterial Blood pH 7.438 (Temp corrected) Arterial Blood 34.8 L pCO2 (Temp correct) Arterial Blood 125.0 H pO2 (Temp corrected) Arterial Blood 23.0 HCO3 Arterial Blood -0.7 Base Excess Arterial Blood 97.9 Oxygen Saturation Sanya Test N/A Arterial Blood A-Line Gas Puncture Site Arterial 0.3 Blood Carboxyhemo globin Arterial Blood 0.2 Methemoglobin Blood Gas A-a O2 156.3 H Differential Oxyhemoglobin 97.4 Percent Blood Gas 37.0 Temperature Blood Gas VENT - CPAP Modality FiO2 45.0 Blood Gas Low 0 PEEP Setting Blood Gas DE Notified Whom Blood Gas 08/13/2018 12:45: Notified Time 42 AM White Blood Count 12.0 #H Red Blood Count 3.72 L Hemoglobin 10.9 L Hematocrit 31.7 L Mean Corpuscular 85.2 Volume Mean Corpuscular 29.3 Hemoglobin Mean Corpuscular 34.4 Hemoglobin Concen t Red Cell 13.6 Distribution Width Platelet Count 166 # Mean Platelet 10.6 H Volume Immature 0.300 Granulocytes % Neutrophils % 83.2 H Lymphocytes % 6.7 L Monocytes % 9.3 Eosinophils % 0.2 Basophils % 0.3 Nucleated Red 0.0 Blood Cells % Immature 0.040 H Granulocytes # Neutrophils # 10.0 H Lymphocytes # 0.8 Monocytes # 1.1 H Eosinophils # 0.0 Basophils # 0.0 Nucleated Red 0.0 Blood Cells # Sodium Level 144 Potassium Level 4.1 Chloride Level 111 H Carbon Dioxide 24 Level Anion Gap 9 Blood Urea 16 Nitrogen Creatinine 0.71 Est Glomerular > 60 Filtrat Rate mL/min Glucose Level 193 Calcium Level 8.8 Test 08/13/18 01:33 08/13/18 02:27 08/13/18 04:30 08/13/18 04:55 Bedside Glucose 201 197 194 White Blood Count 10.4 Red Blood Count 3.76 L Hemoglobin 11.1 L Hematocrit 32.2 L Mean Corpuscular 85.6 Volume Mean Corpuscular 29.5 Hemoglobin Mean Corpuscular 34.5 Hemoglobin Concen t Red Cell 13.9 Distribution Width Platelet Count 172 Mean Platelet 10.7 H Volume Immature 0.400 Granulocytes % Neutrophils % 85.2 H Lymphocytes % 5.5 L Monocytes % 8.7 Eosinophils % 0.0 Basophils % 0.2 Nucleated Red 0.0 Blood Cells % Immature 0.040 H Granulocytes # Neutrophils # 8.9 H Lymphocytes # 0.6 L Monocytes # 0.9 Eosinophils # 0.0 Basophils # 0.0 Nucleated Red 0.0 Blood Cells # Prothrombin Time 14.6 Prothrombin Time 1.1 Ratio INR International 1.13 Normalized Ratio Activated 40.5 H Partial Thrombopl ast Time Sodium Level 142 Potassium Level 4.6 Chloride Level 110 Carbon Dioxide 26 Level Anion Gap 6 Blood Urea 16 Nitrogen Creatinine 0.67 Est Glomerular > 60 Filtrat Rate mL/min Glucose Level 188 Calcium Level 8.9 Phosphorus Level 4.1 Magnesium Level 1.8 Total Bilirubin 0.5 Direct Bilirubin 0.00 Indirect 0.5 Bilirubin Aspartate Amino 59 H Transf (AST/SGOT) Alanine 47 Aminotransferase (ALT/SGPT) Alkaline 51 Phosphatase Total Protein 6.1 Albumin 3.5 Globulin 2.60 Albumin/Globulin 1.34 Ratio Test 08/13/18 06:11 08/13/18 07:51 08/13/18 09:03 08/13/18 10:44 Bedside Glucose 214 181 199 131 Test 08/13/18 12:12 08/13/18 13:11 08/13/18 14:57 08/13/18 17:15 Bedside Glucose 94 126 145 119 Test 08/13/18 17:31 08/13/18 20:34 Hematocrit 31.2 L Bedside Glucose 181 Medications Medication Current Medications Miscellaneous Information (* Miscellaneous Pharmacy Order) Treatment of Hypoglycemia: 1.BG 51... Per protocol XX ; Start 08/12/18 at 17:00 Hydromorphone HCl (Dilaudid) 0.2 mg Q15M PRN IV PAIN LEVEL 1-5; Start 08/12/18 at 17:30 Hydromorphone HCl (Dilaudid) 0.4 mg Q15M PRN IV PAIN LEVEL 6-10 Last administered on 08/12/18at 23:14; Admin Dose 0.4 MG; Start 08/12/18 at 17:30 Oxycodone/ Acetaminophen (Percocet (5/ 325)) 1 tab Q3H PRN PO PAIN LEVEL 1-5; Start 08/12/18 at 17:30 Oxycodone/ Acetaminophen (Percocet (5/ 325)) 2 tab Q3H PRN PO PAIN LEVEL 6-10 Last administered on 08/13/18at 05:42; Admin Dose 2 TAB; Start 08/12/18 at 17:30 Ondansetron HCl (Zofran Inj) 4 mg Q6H PRN IV NAUSEA AND/OR VOMITING Last administered on 08/13/18at 05:41; Admin Dose 4 MG; Start 08/12/18 at 17:30 Aspirin (Aspirin) 325 mg DAILY PO Last administered on 08/13/18at 08:30; Admin Dose 325 MG; Start 08/13/18 at 09:00 Acetaminophen (Tylenol Tab) 650 mg Q3H PRN PO ELEVATED TEMPERATURE; Start 08/12/18 at 17:30 Potassium Chloride 50 ml @ 50 mls/hr SEE DIRECTION PRN IVPB K+ LEVEL Last administered on 08/13/18at 03:42; Admin Dose 50 MLS/HR; Start 08/12/18 at 17:30 Magnesium Sulfate/ Dextrose 100 ml @ 100 mls/hr PRN PRN IVPB PENDING LAB VALUE Last administered on 08/13/18at 09:01; Admin Dose 100 MLS/HR; Start 08/12/18 at 17:30 Nitroglycerin/ Dextrose 250 ml @ 1.5 mls/hr PER PROTOCOL IV Last administered on 08/12/18 18:30; Admin Dose 7.5 MLS/HR; Start 08/12/18 at 17:30 Dopamine HCl/ Dextrose 250 ml @ 6.045 mls/ hr PER PROTOCOL IV Last administered on 08/12/18 18:29; Admin Dose 3.023 MLS/HR; Start 08/12/18 at 17:30 Atorvastatin Calcium (Lipitor) 40 mg HS GTB Last administered on 08/13/18 20:45; Admin Dose 40 MG; Start 08/12/18 at 21:00 Enoxaparin Sodium (Lovenox) 40 mg DAILY SC Last administered on 08/13/18 09:01; Admin Dose 40 MG; Start 08/13/18 at 09:00 Diagnostic Test (Pha) (Accu-Chek) 1 ea 02 XX ; Start 08/14/18 at 02:00 Insulin Glargine (Lantus) 20 units DAILY@2000 SC Last administered on 08/13/18 20:40; Admin Dose 20 UNITS; Start 08/13/18 at 20:00 Insulin Aspart (Novolog Insulin Pen) 7 unit WITH MEALS SC Last administered on 08/13/18 20:38; Admin Dose 7 UNIT; Start 08/13/18 at 18:30 Insulin Aspart (Novolog Insulin Pen) NOVOLOG *MILD* ALGORITHM WITH MEALS BEDTIME SC Last administered on 08/13/18 20:49; Admin Dose 1 UNIT; Start 08/13 at 18:30 Famotidine (Pepcid) 20 mg BID PO Last administered on 08/13/18 20:45; Admin Dose 20 MG; Start 08/13/18 at 21:00 Miscellaneous Information 1 ea NOTE XX ; Start 08/13/18 at 18:30 Glucose (Glutose) 15 gm Q15M PRN PO DECREASED GLUCOSE; Start 08/13/18 at 18:30 Glucose (Glutose) 22.5 gm Q15M PRN PO DECREASED GLUCOSE; Start 08/13/18 at 18:30 Dextrose (D50w Syringe) 25 ml Q15M PRN IV DECREASED GLUCOSE; Start 08/13/18 at 18:30 Dextrose (D50w Syringe) 50 ml Q15M PRN IV DECREASED GLUCOSE; Start 08/13/18 at 18:30 Glucagon (Glucagen) 1 mg Q15M PRN IM DECREASED GLUCOSE; Start 08/13/18 at 18:30 Glucose (Glutose) 15 gm Q15M PRN BUCCAL DECREASED GLUCOSE; Start 08/13/18 at 18:30 HANSA FAIR MD August 13, 2018 23:21
[2018-08-14] VITALS (22 sets, daily range): BP systolic 99–127; BP diastolic 62–78; PULSE 80–92; RESP 15–26
[2018-08-14] MEDS: ACCU-CHEK XX SCH (01:29)
--- NOTE | 2018-08-14 05:49 | CONS ---
Assessment/Plan Assessment/Plan Hospital Course (Demo Recall) Pericarditis: EKG and fevers post op consistent with pericarditis. Now with a mild rub as well. s/p CABG 08/12/2018: BOTOHE to LAD, SVG to distal circumflex artery, SVG to OM1 sequenced to OM2 sequenced to OM 3 NSTEMI: trop peak 5.9. EF preserved. Cath 08/10 showed multivessel CAD. Coronary artery disease, status post PCI (2007) Hypertension Dyslipidemia Diabetes mellitus - HgbA1c 11.3 -toradol 30 mg IV x 1 now and start ibuprofen 600mg TID, taper over one week depending on clinical progress -start metoprolol 25mg BID -continue aspirin 325 mg daily -continue atorvastatin 40mg daily Consultation Date/Type/Reason Admit Date/Time August 08, 2018 at 07:45 Initial Consult Date Type of Consult Cardiology Requesting Provider: LIBBY DEL VALLE Date/Time of Note DATE: 08/14/18 TIME: 05:47 24 HR Interval Summary Free Text/Dictation No events. Doing well except for intermittent chest pain. No further fevers.No symptoms currently Exam/Review of Systems Vital Signs Vitals Vital Signs Date Temp Pulse Resp B/P (MAP) Pulse Ox O2 O2 Flow FiO2 Time Delivery Rate 08/14/18 98.7 87 19 119/72 97 Nasal 3.0 04:00 (88) Cannula 08/14/18 27 00:55 Intake and Output 08/13/18 08/13/18 08/14/18 1515:00 23:00 07:00 IntakeIntake Total 814.5 ml 191 ml OutputOutput Total 375 ml 300 ml 30 ml BalanceBalance 439.5 ml -109 ml -30 ml Exam Constitutional: alert, oriented Psych: no complaints, nl mood/affect Head: normocephalic, atraumatic Neck: No jvd Respiratory: clear to auscultation, diminished breath sounds Cardiovascular: regular rate and rhythm, rub; No edema Gastrointestinal: soft, non-tender; No distended Neurological: nl mental status, nl speech Labs Result Diagram: 08/14/18 0350 08/14/18 0350 Results 24hrs Laboratory Tests Test 08/13/18 06:11 08/13/18 07:51 08/13/18 09:03 08/13/18 10:44 Bedside Glucose 214 181 199 131 Test 08/13/18 12:12 08/13/18 13:11 08/13/18 14:57 08/13/18 17:15 Bedside Glucose 94 126 145 119 Test 08/13/18 17:31 08/13/18 20:34 08/14/18 00:10 08/14/18 01:27 Hematocrit 31.2 L Bedside Glucose 181 221 H Potassium Level 4.2 Magnesium Level 2.9 #H Test 08/14/18 03:50 White Blood Count 7.2 # Red Blood Count 3.18 L Hemoglobin 9.3 L Hematocrit 27.8 L Mean Corpuscular 87.4 Volume Mean Corpuscular 29.2 Hemoglobin Mean Corpuscular 33.5 Hemoglobin Concent Red Cell 14.1 Distribution Width Platelet Count 138 L Mean Platelet Volume 12.0 H Immature 0.400 Granulocytes % Neutrophils % 76.2 Lymphocytes % 13.0 L Monocytes % 9.4 Eosinophils % 0.7 Basophils % 0.3 Nucleated Red Blood 0.0 Cells % Immature 0.030 Granulocytes # Neutrophils # 5.5 Lymphocytes # 0.9 Monocytes # 0.7 Eosinophils # 0.1 Basophils # 0.0 Nucleated Red Blood 0.0 Cells # Sodium Level 137 Potassium Level 4.3 Chloride Level 104 Carbon Dioxide Level 28 Anion Gap 5 Blood Urea Nitrogen 23 H Creatinine 0.65 Est Glomerular > 60 Filtrat Rate mL/min Glucose Level 126 # Calcium Level 8.8 Magnesium Level 2.3 Medications Medications Current Medications Miscellaneous Information (* Miscellaneous Pharmacy Order) Treatment of Hypoglycemia: 1.BG 51... Per protocol XX ; Start 08/12/18 at 17:00 Hydromorphone HCl (Dilaudid) 0.2 mg Q15M PRN IV PAIN LEVEL 1-5 Last administered on 08/14/18at 02:31; Admin Dose 0.2 MG; Start 08/12/18 at 17:30 Hydromorphone HCl (Dilaudid) 0.4 mg Q15M PRN IV PAIN LEVEL 6-10 Last administered on 08/12/18at 23:14; Admin Dose 0.4 MG; Start 08/12/18 at 17:30 Oxycodone/ Acetaminophen (Percocet (5/ 325)) 1 tab Q3H PRN PO PAIN LEVEL 1-5; Start 08/12/18 at 17:30 Oxycodone/ Acetaminophen (Percocet (5/ 325)) 2 tab Q3H PRN PO PAIN LEVEL 6-10 Last administered on 08/13/18 05:42; Admin Dose 2 TAB; Start 08/12/18 at 17:30 Ondansetron HCl (Zofran Inj) 4 mg Q6H PRN IV NAUSEA AND/OR VOMITING Last administered on 08/13/18 05:41; Admin Dose 4 MG; Start 08/12/18 at 17:30 Aspirin (Aspirin) 325 mg DAILY PO Last administered on 08/13/18 08:30; Admin Dose 325 MG; Start 08/13/18 at 09:00 Acetaminophen (Tylenol Tab) 650 mg Q3H PRN PO ELEVATED TEMPERATURE; Start 08/12/18 at 17:30 Potassium Chloride 50 ml @ 50 mls/hr SEE DIRECTION PRN IVPB K+ LEVEL Last administered on 08/13/18 03:42; Admin Dose 50 MLS/HR; Start 08/12/18 at 17:30 Magnesium Sulfate/ Dextrose 100 ml @ 100 mls/hr PRN PRN IVPB PENDING LAB VALUE Last administered on 08/13/18 09:01; Admin Dose 100 MLS/HR; Start 08/12/18 at 17:30 Nitroglycerin/ Dextrose 250 ml @ 1.5 mls/hr PER PROTOCOL IV Last administered on 08/12/18 18:30; Admin Dose 7.5 MLS/HR; Start 08/12/18 at 17:30 Dopamine HCl/ Dextrose 250 ml @ 6.045 mls/ hr PER PROTOCOL IV Last administered on 08/12/18 18:29; Admin Dose 3.023 MLS/HR; Start 08/12/18 at 17:30 Atorvastatin Calcium (Lipitor) 40 mg HS GTB Last administered on 08/13/18at 20:45; Admin Dose 40 MG; Start 08/12/18 at 21:00 Enoxaparin Sodium (Lovenox) 40 mg DAILY SC Last administered on 08/13/18 09:01; Admin Dose 40 MG; Start 08/13/18 at 09:00 Diagnostic Test (Pha) (Accu-Chek) 1 ea 02 XX ; Start 08/14/18 at 02:00 Insulin Glargine (Lantus) 20 units DAILY@2000 SC Last administered on 08/13/18at 20:40; Admin Dose 20 UNITS; Start 08/13/18 at 20:00 Insulin Aspart (Novolog Insulin Pen) 7 unit WITH MEALS SC Last administered on 08/13/18at 20:38; Admin Dose 7 UNIT; Start 08/13/18 at 18:30 Insulin Aspart (Novolog Insulin Pen) NOVOLOG *MILD* ALGORITHM WITH MEALS BEDTIME SC Last administered on 08/13/18at 20:49; Admin Dose 1 UNIT; Start 08/13/18 at 18:30 Famotidine (Pepcid) 20 mg BID PO Last administered on 08/13/18at 20:45; Admin Dose 20 MG; Start 08/13/18 at 21:00 Miscellaneous Information 1 ea NOTE XX ; Start 08/13/18 at 18:30 Glucose (Glutose) 15 gm Q15M PRN PO DECREASED GLUCOSE; Start 08/13/18 at 18:30 Glucose (Glutose) 22.5 gm Q15M PRN PO DECREASED GLUCOSE; Start 08/13/18 at 18:30 Dextrose (D50w Syringe) 25 ml Q15M PRN IV DECREASED GLUCOSE; Start 08/13/18 at 18:30 Dextrose (D50w Syringe) 50 ml Q15M PRN IV DECREASED GLUCOSE; Start 08/13/18 at 18:30 Glucagon (Glucagen) 1 mg Q15M PRN IM DECREASED GLUCOSE; Start 08/13/18 at 18:30 Glucose (Glutose) 15 gm Q15M PRN BUCCAL DECREASED GLUCOSE; Start 08/13/18 at 18:30 Metoprolol Tartrate (Lopressor) 25 mg BID PO ; Start 08/14/18 at 09:00 LIBBY DEL VALLE August 14, 2018 05:49
[2018-08-14] MEDS ORDERED: KETOROLAC 30 MG INJ IV ONE (05:54)
[2018-08-14] MEDS: ASPIRIN 325 MG TAB PO SCH (08:45)
[2018-08-14] MEDS: METOPROLOL 25 MG TAB PO SCH ×2 (08:46→20:10)
[2018-08-14] MEDS: FAMOTIDINE 20 MG TAB PO SCH ×2 (08:46→20:09)
[2018-08-14] MEDS: ENOXAPARIN 40 MG/0.4 ML SYG SC SCH (08:49)
[2018-08-14] MEDS: INSULIN ASPART [NOVOLOG] 3 ML PEN SC SCH ×7 (08:54→20:13)
[2018-08-14] MEDS ORDERED: METOPROLOL 25 MG TAB PO SCH (09:00)
[2018-08-14] MEDS: POTASSIUM CHLORIDE 50 ML IVPB PRN (09:12)
--- NOTE | 2018-08-14 13:39 | PN ---
Date/Time of Note Date/Time of Note DATE: 08/14/18 TIME: 13:38 Assessment/Plan VTE Prophylaxis Risk score (from Ns)>0 risk: 9 SCD applied (from Ns): Yes SCD contraindicated: low risk/ambulating Pharmacological prophylaxis: NA/contraindicated Pharm contraindication: surgical contra Lines/Catheters [facility]from [facility] Cord[facility] Urinary Cath still in place: Yes Reason Cath still needed: urinary retention Assessment/Plan Hospital Course A/P 1. NSTEMI; sp cath; multivessel dz; Pod 2 CABG. Rx pain 2. Chr CAD; ho pci 3. Dm II; ooc 11.0 4. Htn 5. DL; ooc 6. Nonadherence? 7. Dm neuropathy? S: /20 events noted / no chest pain dyspnea. One episode of bradycardia yesterday afternoon. 22: No events 08/13: events noted 08/14: Not much appetite. No arrhythmias stable for transfer. O: vss PE no pallor/ jvd reg no mrg diminished chest tube CDI bs+ nt nd no r r g no edema Result Diagram: 08/14/18 0350 08/14/18 0350 Results 24hrs Laboratory Tests Test 08/13/18 14:57 08/13/18 17:15 08/13/18 17:31 08/13/18 20:34 Bedside Glucose 145 119 181 Hematocrit 31.2 L Test 08/14/18 00:10 08/14/18 01:27 08/14/18 03:50 08/14/18 08:31 Potassium Level 4.2 4.3 Magnesium Level 2.9 #H 2.3 Bedside Glucose 221 H 150 White Blood Count 7.2 # Red Blood Count 3.18 L Hemoglobin 9.3 L Hematocrit 27.8 L Mean Corpuscular 87.4 Volume Mean Corpuscular 29.2 Hemoglobin Mean Corpuscular 33.5 Hemoglobin Concent Red Cell 14.1 Distribution Width Platelet Count 138 L Mean Platelet Volume 12.0 H Immature 0.400 Granulocytes % Neutrophils % 76.2 Lymphocytes % 13.0 L Monocytes % 9.4 Eosinophils % 0.7 Basophils % 0.3 Nucleated Red Blood 0.0 Cells % Immature 0.030 Granulocytes # Neutrophils # 5.5 Lymphocytes # 0.9 Monocytes # 0.7 Eosinophils # 0.1 Basophils # 0.0 Nucleated Red Blood 0.0 Cells # Sodium Level 137 Chloride Level 104 Carbon Dioxide Level 28 Anion Gap 5 Blood Urea Nitrogen 23 H Creatinine 0.65 Est Glomerular > 60 Filtrat Rate mL/min Glucose Level 126 # Calcium Level 8.8 Test 08/14/18 12:13 Bedside Glucose 169 Exam/Review of Systems Exam Vitals Vital Signs Date Temp Pulse Resp B/P (MAP) Pulse Ox O2 O2 Flow FiO2 Time Delivery Rate 08/14/18 82 12:00 08/14/18 18 118/69 98 Nasal 2.0 10:00 (85) Cannula 08/14/18 99.2 08:00 08/14/18 00:55 Intake and Output 08/13/18 08/13/18 08/14/18 1515:00 23:00 07:00 IntakeIntake Total 814.5 ml 191 ml 20 ml OutputOutput Total 375 ml 300 ml 340 ml BalanceBalance 439.5 ml -109 ml -320 ml Results Results 24hrs Laboratory Tests Test 08/13/18 14:57 08/13/18 17:15 08/13/18 17:31 08/13/18 20:34 Bedside Glucose 145 119 181 Hematocrit 31.2 L Test 08/14/18 00:10 08/14/18 01:27 08/14/18 03:50 08/14/18 08:31 Potassium Level 4.2 4.3 Magnesium Level 2.9 #H 2.3 Bedside Glucose 221 H 150 White Blood Count 7.2 # Red Blood Count 3.18 L Hemoglobin 9.3 L Hematocrit 27.8 L Mean Corpuscular 87.4 Volume Mean Corpuscular 29.2 Hemoglobin Mean Corpuscular 33.5 Hemoglobin Concent Red Cell 14.1 Distribution Width Platelet Count 138 L Mean Platelet Volume 12.0 H Immature 0.400 Granulocytes % Neutrophils % 76.2 Lymphocytes % 13.0 L Monocytes % 9.4 Eosinophils % 0.7 Basophils % 0.3 Nucleated Red Blood 0.0 Cells % Immature 0.030 Granulocytes # Neutrophils # 5.5 Lymphocytes # 0.9 Monocytes # 0.7 Eosinophils # 0.1 Basophils # 0.0 Nucleated Red Blood 0.0 Cells # Sodium Level 137 Chloride Level 104 Carbon Dioxide Level 28 Anion Gap 5 Blood Urea Nitrogen 23 H Creatinine 0.65 Est Glomerular > 60 Filtrat Rate mL/min Glucose Level 126 # Calcium Level 8.8 Test 08/14/18 12:13 Bedside Glucose 169 Medications Medication Current Medications Miscellaneous Information (* Miscellaneous Pharmacy Order) Treatment of Hypoglycemia: 1.BG 51... Per protocol XX ; Start 08/12/18 at 17:00 Oxycodone/ Acetaminophen (Percocet (5/ 325)) 1 tab Q3H PRN PO PAIN LEVEL 1-5; Start 08/12/18 at 17:30 Oxycodone/ Acetaminophen (Percocet (5/ 325)) 2 tab Q3H PRN PO PAIN LEVEL 6-10 Last administered on 08/13/18 05:42; Admin Dose 2 TAB; Start 08/12/18 at 17:30 Ondansetron HCl (Zofran Inj) 4 mg Q6H PRN IV NAUSEA AND/OR VOMITING Last administered on 08/13/18 05:41; Admin Dose 4 MG; Start 08/12/18 at 17:30 Aspirin (Aspirin) 325 mg DAILY PO Last administered on 08/14/18at 08:45; Admin Dose 325 MG; Start 08/13/18 at 09:00 Acetaminophen (Tylenol Tab) 650 mg Q3H PRN PO ELEVATED TEMPERATURE; Start 08/12/18 at 17:30 Atorvastatin Calcium (Lipitor) 40 mg HS GTB Last administered on 08/13/18at 20:45; Admin Dose 40 MG; Start 08/12/18 at 21:00 Enoxaparin Sodium (Lovenox) 40 mg DAILY SC Last administered on 08/14/18 08:49; Admin Dose 40 MG; Start 08/13/18 at 09:00 Diagnostic Test (Pha) (Accu-Chek) 1 ea 02 XX ; Start 08/14/18 at 02:00 Insulin Glargine (Lantus) 20 units DAILY@2000 SC Last administered on 08/13/18at 20:40; Admin Dose 20 UNITS; Start 08/13/18 at 20:00 Insulin Aspart (Novolog Insulin Pen) 7 unit WITH MEALS SC Last administered on 08/14/18 12:59; Admin Dose 7 UNIT; Start 08/13/18 at 18:30 Insulin Aspart (Novolog Insulin Pen) NOVOLOG *MILD* ALGORITHM WITH MEALS BEDTIME SC Last administered on 08/14/18 13:00; Admin Dose 1 UNIT; Start 08/13/18 at 18:30 Famotidine (Pepcid) 20 mg BID PO Last administered on 08/14/18at 08:46; Admin Do se 20 MG; Start 08/13/18 at 21:00 Miscellaneous Information 1 ea NOTE XX ; Start 08/13/18 at 18:30 Glucose (Glutose) 15 gm Q15M PRN PO DECREASED GLUCOSE; Start 08/13/18 at 18:30 Glucose (Glutose) 22.5 gm Q15M PRN PO DECREASED GLUCOSE; Start 08/13/18 at 18:30 Dextrose (D50w Syringe) 25 ml Q15M PRN IV DECREASED GLUCOSE; Start 08/13/18 at 18:30 Dextrose (D50w Syringe) 50 ml Q15M PRN IV DECREASED GLUCOSE; Start 08/13/18 at 18:30 Glucagon (Glucagen) 1 mg Q15M PRN IM DECREASED GLUCOSE; Start 08/13/18 at 18:30 Glucose (Glutose) 15 gm Q15M PRN BUCCAL DECREASED GLUCOSE; Start 08/13/18 at 18:30 Metoprolol Tartrate (Lopressor) 25 mg BID PO Last administered on 08/14/18at 08:46; Admin Dose 25 MG; Start 08/14/18 at 09:00 Ibuprofen (Motrin) 600 mg Q8 PO ; Start 08/14/18 at 14:00 HANSA FAIR MD August 14, 2018 13:39
[2018-08-14] MEDS: IBUPROFEN 600 MG TAB PO SCH ×2 (13:54→22:12)
[2018-08-14] MEDS ORDERED: BISACODYL 10 MG SUPP PR PRN (14:00)
[2018-08-14] MEDS ORDERED: GUAIFENESIN/DM 5ML CUP PO PRN (14:00)
--- NOTE | 2018-08-14 14:35 | PN ---
Date/Time of Note Date/Time of Note DATE: 08/14/18 TIME: 14:35 Assessment/Plan Lines/Catheters IV Catheter Type (from Nrs): Cordis Michael in Place (from Nrsg): Yes Assessment/Plan Assessment/Plan doing well, NSR, remove chest tubes and wires. ok to tele Exam/Review of Systems Vital Signs Vitals Vital Signs Date Temp Pulse Resp B/P (MAP) Pulse Ox O2 O2 Flow FiO2 Time Delivery Rate 08/14/18 82 12:00 08/14/18 18 118/69 98 Nasal 2.0 10:00 (85) Cannula 08/14/18 99.2 08:00 08/14/18 27 00:55 Intake and Output 08/13/18 08/13/18 08/14/18 1515:00 23:00 07:00 IntakeIntake Total 814.5 ml 191 ml 20 ml OutputOutput Total 375 ml 300 ml 340 ml BalanceBalance 439.5 ml -109 ml -320 ml Results Result Diagram: 08/14/18 0350 08/14/18 0350 SHARLA DOWNS MD August 14, 2018 14:35
--- NOTE | 2018-08-14 18:52 | RADRPT ---
Vent Rate: 88 bpm RR Interval: 680 msec NC Interval: 146 msec QRS Duration: 134 msec QT Interval: 389 msec QTC Interval: 472 msec P-R-T [place]: 52 - 35 - 29 degrees Sinus rhythm...normal P axis, V-rate 50- 99 Right bundle branch block...QRSd>120, terminal axis(90,270) Electronically Signed By: Ivan Drummond
[2018-08-14] MEDS: ATORVASTATIN 40 MG TAB GTB SCH (20:09)
[2018-08-14] MEDS: INSULIN GLARGINE [LANTus] (100 UNITS/ML) SYG SC SCH (20:10)
[2018-08-14] MEDS: BISACODYL (EC) 5 MG TAB PO PRN (22:13)
[2018-08-15] VITALS (8 sets, daily range): BP systolic 103–124; BP diastolic 57–67; PULSE 65–95; RESP 16–19
[2018-08-15] MEDS: ACCU-CHEK XX SCH (02:00)
[2018-08-15] MEDS: IBUPROFEN 600 MG TAB PO SCH ×3 (05:46→22:03)
[2018-08-15] MEDS: INSULIN ASPART [NOVOLOG] 3 ML PEN SC SCH ×7 (07:38→20:12)
[2018-08-15] MEDS: ASPIRIN 325 MG TAB PO SCH (08:22)
[2018-08-15] MEDS: FAMOTIDINE 20 MG TAB PO SCH ×2 (08:22→20:04)
[2018-08-15] MEDS: METOPROLOL 25 MG TAB PO SCH ×2 (08:23→20:12)
[2018-08-15] MEDS: ENOXAPARIN 40 MG/0.4 ML SYG SC SCH (08:29)
[2018-08-15] MEDS: BISACODYL (EC) 5 MG TAB PO PRN (10:01)
--- NOTE | 2018-08-15 11:32 | PN ---
Date/Time of Note Date/Time of Note DATE: 08/15/18 TIME: 11:32 Assessment/Plan Lines/Catheters IV Catheter Type (from Nrs): Saline Lock Michael in Place (from Nrs): Yes Assessment/Plan Assessment/Plan doing well, NSR. labs ok, increase activity. home tomorrow if ok with cadiology, follow up in 1-2 weeks Exam/Review of Systems Vital Signs Vitals Vital Signs Date Temp Pulse Resp B/P (MAP) Pulse Ox O2 O2 Flow FiO2 Time Delivery Rate 08/15/18 98.0 82 18 110/60 97 Nasal 11:15 (77) Cannula 08/15/18 2.0 10:57 08/14/18 27 00:55 Intake and Output 08/14/18 08/14/18 08/15/18 1515:00 23:00 07:00 IntakeIntake Total 430 ml 440 ml 500 ml OutputOutput Total 60 ml 400 ml 1100 ml BalanceBalance 370 ml 40 ml -600 ml Results Result Diagram: 08/15/18 0550 08/15/18 0550 SHARLA DOWNS MD August 15, 2018 11:32
--- NOTE | 2018-08-15 15:33 | PN ---
Date/Time of Note Date/Time of Note DATE: 08/15/18 TIME: 15:33 Assessment/Plan VTE Prophylaxis Risk score (from Ns)>0 risk: 8 SCD applied (from Ns): Yes SCD contraindicated: low risk/ambulating Pharmacological prophylaxis: LMWH Lines/Catheters IV Catheter Type (from [facility]): Saline Lock Urinary Cath still in place: Yes Reason Cath still needed: urinary retention Assessment/Plan Hospital Course A/P 1. NSTEMI; sp cath; multivessel dz; Pod 3 CABG. Rx pain 2. Chr CAD; ho pci 3. Dm II; ooc 11.0 4. Htn 5. DL; ooc 6. Nonadherence? 7. Dm neuropathy? S: /20 events noted no chest pain dyspnea. One episode of bradycardia yesterday afternoon. 22: No events 08/13: events noted 08/14: Not much appetite. No arrhythmias stable for transfer. 5: Doing well I think chest tube out probably home tomorrow O: vss PE no pallor/ jvd reg no mrg diminished chest tube CDI bs+ nt nd no r r g no edema Result Diagram: 08/15/18 0550 08/15/18 0550 Results 24hrs Laboratory Tests Test 08/14/18 17:27 08/14/18 20:08 08/15/18 05:50 08/15/18 07:37 Bedside Glucose 126 162 100 White Blood Count 9.0 # Red Blood Count 3.26 L Hemoglobin 9.7 L Hematocrit 28.5 L Mean Corpuscular 87.4 Volume Mean Corpuscular 29.8 Hemoglobin Mean Corpuscular 34.0 Hemoglobin Concent Red Cell 13.6 Distribution Width Platelet Count 154 Mean Platelet Volume 10.9 H Immature 0.300 Granulocytes % Neutrophils % 79.2 H Lymphocytes % 8.9 L Monocytes % 10.3 Eosinophils % 1.0 Basophils % 0.3 Nucleated Red Blood 0.0 Cells % Immature 0.030 Granulocytes # Neutrophils # 7.1 Lymphocytes # 0.8 Monocytes # 0.9 Eosinophils # 0.1 Basophils # 0.0 Nucleated Red Blood 0.0 Cells # Sodium Level 140 Potassium Level 4.4 Chloride Level 106 Carbon Dioxide Level 28 Anion Gap 6 Blood Urea Nitrogen 21 H Creatinine 0.75 Est Glomerular > 60 Filtrat Rate mL/min Glucose Level 103 Calcium Level 8.8 Phosphorus Level 3.5 Magnesium Level 2.1 Test 5/25/19 11:44 Bedside Glucose 197 Exam/Review of Systems Exam Vitals Vital Signs Date Temp Pulse Resp B/P (MAP) Pulse Ox O2 O2 Flow FiO2 Time Delivery Rate 08/15/18 98.0 82 18 110/60 97 Nasal 11:15 (77) Cannula 08/15/18 2.0 10:57 08/14/18 27 00:55 Intake and Output 08/14/18 08/14/18 08/15/18 1515:00 23:00 07:00 IntakeIntake Total 430 ml 440 ml 500 ml OutputOutput Total 60 ml 400 ml 1100 ml BalanceBalance 370 ml 40 ml -600 ml Results Results 24hrs Laboratory Tests Test 08/14/18 17:27 08/14/18 20:08 08/15/18 05:50 08/15/18 07:37 Bedside Glucose 126 162 100 White Blood Count 9.0 # Red Blood Count 3.26 L Hemoglobin 9.7 L Hematocrit 28.5 L Mean Corpuscular 87.4 Volume Mean Corpuscular 29.8 Hemoglobin Mean Corpuscular 34.0 Hemoglobin Concent Red Cell 13.6 Distribution Width Platelet Count 154 Mean Platelet Volume 10.9 H Immature 0.300 Granulocytes % Neutrophils % 79.2 H Lymphocytes % 8.9 L Monocytes % 10.3 Eosinophils % 1.0 Basophils % 0.3 Nucleated Red Blood 0.0 Cells % Immature 0.030 Granulocytes # Neutrophils # 7.1 Lymphocytes # 0.8 Monocytes # 0.9 Eosinophils # 0.1 Basophils # 0.0 Nucleated Red Blood 0.0 Cells # Sodium Level 140 Potassium Level 4.4 Chloride Level 106 Carbon Dioxide Level 28 Anion Gap 6 Blood Urea Nitrogen 21 H Creatinine 0.75 Est Glomerular > 60 Filtrat Rate mL/min Glucose Level 103 Calcium Level 8.8 Phosphorus Level 3.5 Magnesium Level 2.1 Test 08/15/18 11:44 Bedside Glucose 197 Medications Medication Current Medications Miscellaneous Information (* Miscellaneous Pharmacy Order) Treatment of Hypoglycemia: 1.BG 51... Per protocol XX ; Start 08/12/18 at 17:00 Oxycodone/ Acetaminophen (Percocet (5/ 325)) 1 tab Q3H PRN PO PAIN LEVEL 1-5; Start 08/12/18 at 17:30 Oxycodone/ Acetaminophen (Percocet (5/ 325)) 2 tab Q3H PRN PO PAIN LEVEL 6-10 Last administered on 08/13/18 05:42; Admin Dose 2 TAB; Start 08/12/18 at 17:30 Ondansetron HCl (Zofran Inj) 4 mg Q6H PRN IV NAUSEA AND/OR VOMITING Last administered on 08/13/18 05:41; Admin Dose 4 MG; Start 08/12/18 at 17:30 Aspirin (Aspirin) 325 mg DAILY PO Last administered on 08/15/18 08:22; Admin Dose 325 MG; Start 08/13/18 at 09:00 Acetaminophen (Tylenol Tab) 650 mg Q3H PRN PO ELEVATED TEMPERATURE; Start 08/12/18 at 17:30 Atorvastatin Calcium (Lipitor) 40 mg HS GTB Last administered on 08/14/18 20:09; Admin Dose 40 MG; Start 08/12/18 at 21:00 Enoxaparin Sodium (Lovenox) 40 mg DAILY SC Last administered on 08/15/18 08:29; Admin Dose 40 MG; Start 08/13/18 at 09:00 Diagnostic Test (Pha) (Accu-Chek) 1 ea 02 XX ; Start 08/14/18 at 02:00 Insulin Glargine (Lantus) 20 units DAILY@2000 SC Last administered on 08/14/18 20:10; Admin Dose 20 UNITS; Start 08/13/18 at 20:00 Insulin Aspart (Novolog Insulin Pen) 7 unit WITH MEALS SC Last administered on 08/15/18 11:59; Admin Dose 7 UNIT; Start 08/13/18 at 18:30 Insulin Aspart (Novolog Insulin Pen) NOVOLOG *MILD* ALGORITHM WITH MEALS BEDTIME SC Last administered on 08/15/18 11:59; Admin Dose 2 UNIT; Start 08/13/18 at 18:30 Famotidine (Pepcid) 20 mg BID PO Last administered on 08/15/18 08:22; Admin Dose 20 MG; Start 08/13/18 at 21:00 Miscellaneous Information 1 ea NOTE XX ; Start 08/13/18 at 18:30 Glucose (Glutose) 15 gm Q15M PRN PO DECREASED GLUCOSE; Start 08/13/18 at 18:30 Glucose (Glutose) 22.5 gm Q15M PRN PO DECREASED GLUCOSE; Start 08/13/18 at 18:30 Dextrose (D50w Syringe) 25 ml Q15M PRN IV DECREASED GLUCOSE; Start 08/13/18 at 18:30 Dextrose (D50w Syringe) 50 ml Q15M PRN IV DECREASED GLUCOSE; Start 08/13/18 at 18:30 Glucagon (Glucagen) 1 mg Q15M PRN IM DECREASED GLUCOSE; Start 08/13/18 at 18:30 Glucose (Glutose) 15 gm Q15M PRN BUCCAL DECREASED GLUCOSE; Start 08/13/18 at 18:30 Metoprolol Tartrate (Lopressor) 25 mg BID PO Last administered on 08/15/18at 08:23; Admin Dose 25 MG; Start 08/14/18 at 09:00 Ibuprofen (Motrin) 600 mg Q8 PO Last administered on 08/15/18at 13:19; Admin Dose 600 MG; Start 08/14/18 at 14:00 Bisacodyl (Dulcolax) 10 mg DAILY PRN PO CONSTIPATION Last administered on 08/15/18at 10:01; Admin Dose 10 MG; Start 08/14/18 at 14:00 Bisacodyl (Dulcolax Supp) 10 mg DAILY PRN [place] CONSTIPATION; Start 08/14/18 at 14 :00 Guaifenesin/ Dextromethorphan (Robitussin Dm Liquid Cup) 10 ml Q4H PRN PO COUGH; Start 08/14/18 at 14:00 HANSA FAIR MD August 15, 2018 15:33
[2018-08-15] MEDS: ATORVASTATIN 40 MG TAB GTB SCH (20:04)
[2018-08-15] MEDS: SENNA/DOCUSATE NA (8.6MG/50MG) TAB PO SCH (20:04)
[2018-08-15] MEDS: LACTOBACILLUS RHAMNOSUS CAP PO SCH (20:11)
[2018-08-15] MEDS: INSULIN GLARGINE [LANTus] (100 UNITS/ML) SYG SC SCH (20:39)
[2018-08-16] VITALS (9 sets, daily range): BP systolic 98–125; BP diastolic 55–75; PULSE 72–91; RESP 17–20
[2018-08-16] MEDS: ACCU-CHEK XX SCH (02:00)
[2018-08-16] MEDS: IBUPROFEN 600 MG TAB PO SCH ×3 (05:49→21:45)
[2018-08-16] MEDS: INSULIN ASPART [NOVOLOG] 3 ML PEN SC SCH ×7 (07:55→20:13)
--- NOTE | 2018-08-16 08:19 | PDOCDIS ---
Discharge Instructions CONDITION [id number] Patient Condition: [id number] Stable HOME CARE INSTRUCTIONS: [id number] Diet Instructions: [id number] Low Fat /Cholesterol ACTIVITY: [id number] Activity Restrictions: Curqg2m Slowly Increase Activity Rest between Activity Avoid heavy lifting Do not Drive FOLLOW UP/APPOINTMENTS Follow-up Plan appt Dr Ley 1wk Cardiology 1-2wks. PCP 1wk Endocrinology 2-3wks HANSA FAIR MD August 16, 2018 08:19
[2018-08-16] MEDS ORDERED: ASPI325T29 PO (08:28)
[2018-08-16] MEDS ORDERED: ACET325T33 PO (08:28)
[2018-08-16] MEDS ORDERED: NOVO3I SC ×2 (08:28)
[2018-08-16] MEDS ORDERED: METO-448 PO (08:28)
[2018-08-16] MEDS ORDERED: FAMO20TA18 PO (08:28)
[2018-08-16] MEDS ORDERED: SENOKOTS PO (08:28)
[2018-08-16] MEDS ORDERED: OXYC-438 PO (08:28)
[2018-08-16] MEDS ORDERED: LACT1CAP28 PO (08:28)
[2018-08-16] MEDS ORDERED: ATOR40TA68 PO (08:28)
[2018-08-16] MEDS ORDERED: GUAI120S25 PO (08:28)
[2018-08-16] MEDS ORDERED: Insulin Glargine SC (08:28)
[2018-08-16] MEDS: ENOXAPARIN 40 MG/0.4 ML SYG SC SCH (08:42)
[2018-08-16] MEDS: ASPIRIN 325 MG TAB PO SCH (08:44)
[2018-08-16] MEDS: FAMOTIDINE 20 MG TAB PO SCH ×2 (08:44→20:11)
[2018-08-16] MEDS: LACTOBACILLUS RHAMNOSUS CAP PO SCH ×2 (08:47→20:12)
--- NOTE | 2018-08-16 11:13 | DS ---
Date/Time of Note Date/Time of Note DATE: 08/16/18 TIME: 11:11 Discharge Summary Admission/Discharge Info Admit Date/Time August 08, 2018 at 07:45 Discharge Date/Time Patient Condition: Stable Consults Dr Jil Díaz Procedures POSTOPERATIVE DIAGNOSIS: Non-ST elevation myocardial infarction, 3-vessel coronary artery disease. PROCEDURE: CABG x5, BOOTHE to LAD, SVG to distal circumflex artery, SVG to OM1 sequenced to OM2 sequenced to OM 3, endoscopic vein harvesting and epiaortic scanning of the ascending aorta. SURGEON: Martha Ley MD 2D Conclusions: Normal left ventricular systolic function. Normal left ventricular cavity size. Mild concentric left ventricular hypertrophy. Ejection fraction is visually estimated at 65 %. Tissue Doppler/Mitral Doppler indices are consistent with impaired relaxation (Stage I diastolic dysfunction). There is mild enlargement of left atrium. Hx of Present Illness Admitted with chest pain dyspnea Hospital Course Hospitalist coverage/hospital course Admitted with NSTEMI. Cath with multivessel disease underwent CABG. stable discharge home. Needs aggressive diabetic education. Ultrasound unremarkable. Referral placed to primary cardiology cardiothoracic surgery and endocrinology. Home health safety PT arranged. Eyes to continue aggressive diabetic care plan to avoid infections. A/P 1. NSTEMI; sp cath; multivessel dz; Pod 4 CABG. Rx pain discharge 2. Chr CAD; ho pci 3. Dm II; ooc 11.0. Home on present insulin therapy for now 4. Htn 5. DL; ooc 6. Nonadherence? 7. Dm neuropathy? S: /20 events noted / no chest pain dyspnea. One episode of bradycardia yesterday afternoon. 22: No events 08/13: events noted 08/14: Not much appetite. No arrhythmias stable for transfer. 5: Doing well I think chest tube out probably home tomorrow 08/16: No events O: vss PE no pallor/ jvd reg no mrg diminished chest tube CDI bs+ nt nd no r r g no edema Home Meds Active Scripts [Insulin Glargine] 100 UNITS/ML SOLN No Conflict Check, 15 UNITS SC DAILY@2000 for 14 Days, #14 1 Refill 2 weeks supply and 1 refill; dispense solostar syringes/ supplies as needed. Prov:HANSA FAIR MD 08/16/18 Insulin Aspart* (Novolog Insulin Pen*) 100 Unit/Ml Soln, 5 UNIT SC WITH MEALS, #10 1 Refill 10 days supply; 1 refill. Prov:HANSA FAIR MD 08/16/18 Insulin Aspart* (Novolog Insulin Pen*) 100 Unit/Ml Soln, 0 UNIT SC WITH MEALS BEDTIME for 7 Days, #10 1 Refill sliding scale insulin coverage. glucometer, lancets, strips, as needed. Prov:HANSA FAIR MD 08/16/18 Sennosides/Docusate Sodium (Dok Plus Tablet) 1 Each Tablet, 2 TAB PO HS for 5 Days, #10 TAB 1 Refill Prov:HANSA FAIR MD 08/16/18 Lactobacillus Rhamnosus GG (Culturelle) 1 Each Capsule, 1 CAP PO BID for 3 Days, #6 CAP Prov:HANSA FAIR MD 08/16/18 Famotidine* (Famotidine*) 20 Mg Tablet, 20 MG PO DAILY for 14 Days, #14 TAB Prov:HANSA FAIR MD 08/16/18 Boufczyglzb-S-Yjqsyatacl Hb* (Guaifenesin* DM Syrup) 120 Ml Syrup, 10 ML PO Q4H PRN for COUGH for 1 Day Prov:HANSA FAIR MD 08/16/18 Oxycodone HCl/Acetaminophen (Oxycodone-Acetaminophen 5-325) 1 Each Tablet, 1 TAB PO Q3H PRN for PAIN LEVEL 1-5 for 5 Days, TAB Prov:HANSA FAIR MD 08/16/18 Aspirin (Aspirin Lite-Coat) 325 Mg Tablet, 325 MG PO DAILY for 30 Days, #30 TAB Prov:HANSA FAIR MD 08/16/18 Acetaminophen* (Tylenol*) 325 Mg Tablet, 650 MG PO Q3H PRN for ELEVATED TEMPERATURE for 7 Days, TAB Prov:HANSA FAIR MD 08/16/18 Metoprolol Tartrate* (Lopressor*) 25 Mg Tab, 12.5 MG PO BID for 14 Days, #30 TAB Prov:HANSA FAIR MD 08/16/18 Atorvastatin* (Atorvastatin*) 40 Mg Tablet, 40 MG PO HS for 30 Days, #30 TAB 1 Refill Prov:HANSA FAIR MD 08/16/18 Reported Medications Pregabalin* (Lyrica*) 150 Mg Capsule, 150 MG PO QHS, CAP 08/08/18 Terbinafine Hcl* (Terbinafine Hcl*) 250 Mg Tablet, 250 MG PO BID, TAB 08/08/18 Discontinued Reported Medications [[Hidrosmina 200MG ] No Conflict Check, 200 MG DAILY for FROM [place] 08/08/18 Insulin Lispro (Humalog Kwikpen U-100) 100 Unit/1 Ml Insuln.pen, 20 UNIT SQ BID WITH MEALS, EA 08/08/18 Sitagliptin Phos-Metformin Hcl (Janumet XR) 50-500 Mg Tbmp.24hr, 1 TAB PO DAILY for 50-850MG, TAB 08/08/18 Metformin Hcl* (Metformin Hcl*) 1,000 Mg Tablet, 1000 MG PO BID 12/06/12 Follow-up Plan appt Dr Ley 1wk Cardiology 1-2wks. PCP 1wk Endocrinology 2-3wks Primary Care Provider Care Physician No Primary Time spent on discharge: > 30 minutes Pending Labs Laboratory Tests Test 08/15/18 11:44 08/15/18 17:24 08/15/18 20:03 08/16/18 07:56 Bedside 197 158 108 92 Glucose mg/dL (70-220) mg/dL (70-220) mg/dL (70-220) mg/dL (70-220) HANSA FAIR MD August 16, 2018 11:13
[2018-08-16] MEDS: METOPROLOL 25 MG TAB PO SCH (20:12)
[2018-08-16] MEDS: SENNA/DOCUSATE NA (8.6MG/50MG) TAB PO SCH (20:12)
[2018-08-16] MEDS: ATORVASTATIN 40 MG TAB GTB SCH (20:12)
[2018-08-16] MEDS: INSULIN GLARGINE [LANTus] (100 UNITS/ML) SYG SC SCH (21:05)
[2018-08-17] VITALS: BP 105/53; PULSE 79; PULSE 86; RESP 19
[2018-08-17] MEDS: ACCU-CHEK XX SCH (01:23)
[2018-08-17 04:00] VITALS: BP 103/59; PULSE 80; PULSE 84; RESP 19
[2018-08-17] MEDS: IBUPROFEN 600 MG TAB PO SCH ×2 (06:16→14:00)
[2018-08-17 07:09] VITALS: BP 96/53; PULSE 79; RESP 18
[2018-08-17] MEDS: INSULIN ASPART [NOVOLOG] 3 ML PEN SC SCH ×4 (07:46→11:46)
[2018-08-17 08:00] VITALS: PULSE 82
[2018-08-17] MEDS: FAMOTIDINE 20 MG TAB PO SCH (08:35)
[2018-08-17] MEDS: ASPIRIN 325 MG TAB PO SCH (08:35)
[2018-08-17] MEDS: LACTOBACILLUS RHAMNOSUS CAP PO SCH (08:35)
[2018-08-17] MEDS: METOPROLOL 25 MG TAB PO SCH (08:35)
[2018-08-17] MEDS: ENOXAPARIN 40 MG/0.4 ML SYG SC SCH (08:40)
--- NOTE | 2018-08-17 10:28 | PN ---
Date/Time of Note Date/Time of Note DATE: 08/17/18 TIME: 10:22 Assessment/Plan VTE Prophylaxis Risk score (from Ns)>0 risk: 8 SCD applied (from Ns): Yes Pharmacological prophylaxis: LMWH Lines/Catheters IV Catheter Type (from Nrsg): Saline Lock Urinary Cath still in place: No Assessment/Plan Assessment/Plan 1. NSTEMI s/p PCI - Cardiology on board and appreciate recommendations. s/p Cardiac catheterization with multivessel disease - s/p CABG and appreciate CT surgery consultation. will need to follow up in 1-2 weeks 2. CAD s/p CABG - continue current medications - CT surgery follow up in 1-2 weeks as outpatient 3. Diabetes - A1c noted - continue insulin - ISS and accuchecks 4. HTN - stable - continue current medications 5. Disposition - medically stable for discharge home Result Diagram: 08/15/18 0550 08/15/18 0550 Results 24hrs Laboratory Tests Test 08/16/18 12:12 08/16/18 16:58 08/16/18 20:10 08/17/18 07:46 Bedside Glucose 132 130 151 116 Subjective 24 Hr Interval Summary Free Text/Dictation Patient is doing well and states pain is 1/10. No acute overnight events. Exam/Review of Systems Exam Vitals Vital Signs Date Temp Pulse Resp B/P (MAP) Pulse Ox O2 O2 Flow FiO2 Time Delivery Rate 08/17/18 Nasal 2.0 10:00 Cannula 08/17/18 82 08:00 08/17/18 98.4 18 96/53 (67) 94 07:09 08/14/18 27 00:55 Intake and Output 08/16/18 08/16/18 08/17/18 1515:00 23:00 07:00 IntakeIntake Total 800 ml 600 ml BalanceBalance 800 ml 600 ml Exam General: Patient is currently lying in bed in no acute distress Neck: Supple Chest: Nontender, midline incision well healing. CDI Lungs: Clear to auscultation bilaterally, no wheezing or rhonchi Heart: Normal S1-S2, Regular rhythm and rate. No murmur, S3, or S4 Abdomen: Soft , nontender, nondistended , bowel sounds are present. No guarding no rebound tenderness Extremities: Normal to inspection, no edema no cyanosis Skin: no rashes or lesions Results Results 24hrs Laboratory Tests Test 08/16/18 12:12 08/16/18 16:58 08/16/18 20:10 08/17/18 07:46 Bedside Glucose 132 130 151 116 Medications Medication Current Medications Miscellaneous Information (* Miscellaneous Pharmacy Order) Treatment of Hypoglycemia: 1.BG 51... Per protocol XX ; Start 08/12/18 at 17:00 Oxycodone/ Acetaminophen (Percocet (5/ 325)) 1 tab Q3H PRN PO PAIN LEVEL 1-5; Start 08/12/18 at 17:30 Oxycodone/ Acetaminophen (Percocet (5/ 325)) 2 tab Q3H PRN PO PAIN LEVEL 6-10 Last administered on 08/13/18at 05:42; Admin Dose 2 TAB; Start 08/12/18 at 17:30 Ondansetron HCl (Zofran Inj) 4 mg Q6H PRN IV NAUSEA AND/OR VOMITING Last administered on 08/13/18at 05:41; Admin Dose 4 MG; Start 08/12/18 at 17:30 Aspirin (Aspirin) 325 mg DAILY PO Last administered on 08/17/18at 08:35; Admin Dose 325 MG; Start 08/13/18 at 09:00 Acetaminophen (Tylenol Tab) 650 mg Q3H PRN PO ELEVATED TEMPERATURE; Start 08/12/18 at 17:30 Atorvastatin Calcium (Lipitor) 40 mg HS GTB Last administered on 08/16/18at 20:12; Admin Dose 40 MG; Start 08/12/18 at 21:00 Enoxaparin Sodium (Lovenox) 40 mg DAILY SC Last administered on 08/17/18at 08:40; Admin Dose 40 MG; Start 08/13/18 at 09:00 Diagnostic Test (Pha) (Accu-Chek) 1 ea 02 XX ; Start 08/14/18 at 02:00 Insulin Aspart (Novolog Insulin Pen) NOVOLOG *MILD* ALGORITHM WITH MEALS BEDTIME SC Last administered on 08/15/18at 17:29; Admin Dose 1 UNIT; Start 08/13/18 at 18:30 Famotidine (Pepcid) 20 mg BID PO Last administered on 08/17/18at 08:35; Admin Dose 20 MG; Start 08/13/18 at 21:00 Miscellaneous Information 1 ea NOTE XX ; Start 08/13/18 at 18:30 Glucose (Glutose) 15 gm Q15M PRN PO DECREASED GLUCOSE; Start 08/13/18 at 18:30 Glucose (Glutose) 22.5 gm Q15M PRN PO DECREASED GLUCOSE; Start 08/13/18 at 18:30 Dextrose (D50w Syringe) 25 ml Q15M PRN IV DECREASED GLUCOSE; Start 08/13/18 at 18:30 Dextrose (D50w Syringe) 50 ml Q15M PRN IV DECREASED GLUCOSE; Start 08/13/18 at 18:30 Glucagon (Glucagen) 1 mg Q15M PRN IM DECREASED GLUCOSE; Start 08/13/18 at 18:30 Glucose (Glutose) 15 gm Q15M PRN BUCCAL DECREASED GLUCOSE; Start 08/13/18 at 18:30 Ibuprofen (Motrin) 600 mg Q8 PO Last administered on 08/17/18at 06:16; Admin Dose 600 MG; Start 08/14/18 at 14:00 Bisacodyl (Dulcolax) 10 mg DAILY PRN PO CONSTIPATION Last administered on 08/15/18at 10:01; Admin Dose 10 MG; Start 08/14/18 at 14:00 Bisacodyl (Dulcolax Supp) 10 mg DAILY PRN [place] CONSTIPATION; Start 08/14/18 at 14:00 Guaifenesin/ Dextromethorphan (Robitussin Dm Liquid Cup) 10 ml Q4H PRN PO COUGH; Start 08/14/18 at 14:00 Insulin Aspart (Novolog Insulin Pen) 6 unit WITH MEALS SC Last administered on 08/17/18at 07:54; Admin Dose 6 UNIT; Start 08/15/18 at 17:55 Insulin Glargine (Lantus) 18 units DAILY@2000 SC Last administered on 08/16/18at 21:05; Admin Dose 18 UNITS; Start 08/15/18 at 20:00 Senna/Docusate Sodium (Senokot-S) 2 tab HS PO Last administered on 08/16/18at 20:12; Admin Dose 2 TAB; Start 08/15/18 at 21:00 Lactobacillus Acidophilus/ Rhamnosus (Culturelle) 1 cap BID PO Last administered on 08/17/18at 08:35; Admin Dose 1 CAP; Start 08/15/18 at 21:00 Metoprolol Tartrate (Lopressor) 12.5 mg BID PO Last administered on 08/16/18at 20:12; Admin Dose 12.5 MG; Start 08/16/18 at 21:00 MERLY CLEANING MD August 17, 2018 10:28
[2018-08-17] MEDS ORDERED: METO-448 PO (10:36)
[2018-08-17] MEDS ORDERED: INSU100I33 SC (10:36)
[2018-08-17] MEDS ORDERED: METF100010 PO (10:36)
[2018-08-17] MEDS ORDERED: FAMO20TA18 PO (10:36)
[2018-08-17] MEDS ORDERED: INSU100I12 SQ (10:36)
[2018-08-17] MEDS ORDERED: ATOR40TA68 PO (10:36)
[2018-08-17] MEDS ORDERED: ASPI325T29 PO (10:36)
[2018-08-17] MEDS ORDERED: NEED-135 MC (10:37)
--- NOTE | 2018-08-17 10:41 | PDOCDIS ---
Discharge Instructions DIAGNOSIS Discharge Diagnosis 1. NSTEMI s/p PCI 2. CAD s/p CABG 3. Diabetes mellitus 4. HTN CONDITION [id number] Patient Condition: [id number] Stable HOME CARE INSTRUCTIONS: [id number] Diet Instructions: [id number] Low Fat /Cholesterol ACTIVITY: [id number] Activity Restrictions: [id number] Slowly Increase Activity Rest between Activity Avoid heavy lifting Do not Drive FOLLOW UP/APPOINTMENTS Follow-up Plan 1. Follow up with primary care physician in 1 week. If you do not have one, please go to [facility] to establish care 2. Follow up with Dr. Ley in 1-2 weeks. Call office to schedule appointment 3. Follow up with Cardiology in 1-2 weeks 4. Follow up with [facility] in 2-3 weeks for diabetes management. You will need a referral from your primary care physician if you do not already have one 5. Continue all medications as prescribed 6. You will need to continue on Basaglar 15 units at night and Insulin Lispro 5 units with meals to keep sugars well controlled and prevent any future complications due to diabetes 7. If experiencing any concerning symptoms, please go to the closest emergency department 1. seguimiento con el mdico de atencin primaria en 1 semana. Si usted no tiene isma, por favor vaya al centro mdico de [facility] para establecer el cuidado 2. seguimiento con el Dr. Ley en 1-2 semanas. Llame a la oficina para pr ogramar jaime albert 3. seguimiento con cardiologa en 1-2 semanas 4. seguimiento con endocrinlogo en 2-3 semanas para el control de la diabetes. Necesitar jaime derivacin de price mdico de cabecera si an no tiene jaime 5. Contine todos los medicamentos segn lo prescrito 6. usted tendr que continuar en Basaglar 15 unidades por la noche e insulina lispro 5 unidades con las comidas para mantener los azcares delfin controlados y prevenir cualquier complicacin futura debido a la diabetes 7. Si experimenta algn sntoma relacionado, por favor vaya al [facility]artamento de emergencias ms cercano REFERRALS Other Referrals Martha Ley MD Specialty Cardiothoracic Surgery Comments Office Address [address] [place] [address] Office Elian Díaz MD Specialty Interventional Cardiology Comments Office Address [address] [place] [address] Office MERLY CLEANING MD August 17, 2018 10:41
[2018-08-17 11:28] VITALS: BP 107/59; PULSE 80; RESP 18
[2018-08-17 12:00] VITALS: PULSE 79
--- NOTE | 2018-08-17 17:39 | DS ---
Date/Time of Note Date/Time of Note DATE: 08/17/18 TIME: 17:32 Discharge Summary Admission/Discharge Info Admit Date/Time August 08, 2018 at 07:45 Discharge Date/Time August 17, 2018 at 15:02 Discharge Diagnosis 1. NSTEMI s/p PCI 2. CAD s/p CABG 3. Diabetes mellitus 4. HTN Patient Condition: Stable Consults Cardiology- Dr. Díaz CT surgery- Dr. Ley Procedures Procedure Description Procedure Date:08/10/2018 Game Master/surgeon:Elian Díaz MD. Procedures Performed: 1)Left heart catheterization with selective left and right coronary angiography. DATE OF OPERATION: 08/12/2018 PREOPERATIVE DIAGNOSIS: Non-ST elevation myocardial infarction, 3-vessel coron mitch artery disease. POSTOPERATIVE DIAGNOSIS: Non-ST elevation myocardial infarction, 3-vessel coronary artery disease. PROCEDURE: CABG x5, BOOTHE to LAD, SVG to distal circumflex artery, SVG to OM1 sequenced to OM2 sequenced to OM 3, endoscopic vein harvesting and epiaortic scanning of the ascending aorta. Hx of Present Illness Reason for admission: Chest pain, elevated troponins. Consultants 1. Adriel Norris MD, Cardiology. This is a 53-year-old male with past medical history of hypertension, CAD status post coronary artery stenting, dyslipidemia, and diabetes mellitus type 2. The patient had an episode of chest pain on 08/07/2018 when he called the paramedics and paramedics evaluated him at home and was not transferred to the hospital. The patient came to the emergency room driven by family on 08/08/2018 with chest pain. The patient verbalized the chest pain as substernal and feeling of tightness with associated nausea. The patient denied any diaphoresis, radiation of pain, or vomiting. Patient denied any dizziness. The patient complained of minimal shortness of breath. The pain lasted approximately 20 minutes. Patient denied any fevers or chills. In the emergency room, the patient was noticed to have a troponin of 0.223. The patient's chest x-ray was showing mild right basilar linear atelectatic changes versus scarring. Patient's 12-lead EKG was showing normal sinus rhythm. He was treated with a single dose of aspirin in the emergency room. Hospital Course Patient was admitted for chest pain workup and Cardiology was consulted. Patient underwent cardiac angiogram with findings of [address] surgery was consulted and taken to OR for CABG which he tolerated. Patient progressed well post op and was transferred to Telemetry. Chest tubes were removed and he was cleared for discharge from CT surgery standpoint. Cardiology adjusted medications for better pain control and BP control. Vitals remained stable and patient was discharged home in good condition. Due to patient having no insurance, arrangements for home health and wound care were not possible. Home Meds Active Scripts [place], Insulin Disposable (Sarah Pen Needle) 1 Each Dis.needle, EACH ACHS A, #120 1 Refill Prov:MERLY CLEANING MD 08/17/18 Metformin Hcl* (Metformin Hcl*) 1,000 Mg Tablet, 1000 MG PO BID for 28 Days, #60 TAB Prov:MERLY CLEANING MD 08/17/18 Insulin Glargine,Hum.rec.anlog (Basaglar Kwikpen U-100) 100 Unit/1 Ml Insuln.pen, 15 UNIT SC QHS for 30 Days, #10 EA Prov:MERLY CLEANING MD 08/17/18 Insulin Lispro (Humalog Kwikpen U-100) 100 Unit/1 Ml Insuln.pen, 5 UNIT SQ AC A for 30 Days, #10 EA Prov:MERLY CLEANING MD 08/17/18 Famotidine* (Famotidine*) 20 Mg Tablet, 20 MG PO DAILY for 14 Days, #14 TAB Prov:MERLY CLEANING MD 08/17/18 Aspirin (Aspirin Lite-Coat) 325 Mg Tablet, 325 MG PO DAILY for 30 Days, #30 TAB 1 Refill Prov:MERLY CLEANING MD 08/17/18 Metoprolol Tartrate* (Lopressor*) 25 Mg Tab, 12.5 MG PO BID for 30 Days, #60 TAB Prov:MERLY CLEANING MD 08/17/18 Atorvastatin* (Atorvastatin*) 40 Mg Tablet, 40 MG PO HS for 30 Days, #30 TAB Prov:MERLY CLEANING MD 08/17/18 Insulin Aspart* (Novolog Insulin Pen*) 100 Unit/Ml Soln, 0 UNIT SC WITH MEALS BEDTIME for 7 Days, #10 1 Refill sliding scale insulin coverage. glucometer, lancets, strips, as needed. Prov:HANSA FAIR MD 08/16/18 Sennosides/Docusate Sodium (Dok Plus Tablet) 1 Each Tablet, 2 TAB PO HS for 5 Days, #10 TAB 1 Refill Prov:HANSA FAIR MD 08/16/18 Lactobacillus Rhamnosus GG (Culturelle) 1 Each Capsule, 1 CAP PO BID for 3 Days, #6 CAP Prov:HANSA FAIR MD 08/16/18 Rxoleioxxuo-W-Fkbgipzqhf Hb* (Guaifenesin* DM Syrup) 120 Ml Syrup, 10 ML PO Q4H PRN for COUGH for 1 Day Prov:HANSA FAIR MD 08/16/18 Oxycodone HCl/Acetaminophen (Oxycodone-Acetaminophen 5-325) 1 Each Tablet, 1 TAB PO Q3H PRN for PAIN LEVEL 1-5 for 5 Days, TAB Prov:HANSA FAIR MD 08/16/18 Acetaminophen* (Tylenol*) 325 Mg Tablet, 650 MG PO Q3H PRN for ELEVATED TEMPERATURE for 7 Days, TAB Prov:HANSA FAIR MD 08/16/18 Reported Medications Pregabalin* (Lyrica*) 150 Mg Capsule, 150 MG PO QHS, CAP 08/08/18 Terbinafine Hcl* (Terbinafine Hcl*) 250 Mg Tablet, 250 MG PO BID, TAB 08/08/18 Discontinued Reported Medications [[Hidrosmina 200MG ] No Conflict Check, 200 MG DAILY for FROM [place] 08/08/18 Insulin Lispro (Humalog Kwikpen U-100) 100 Unit/1 Ml Insuln.pen, 20 UNIT SQ BID WITH MEALS, EA 08/08/18 Sitagliptin Phos-Metformin Hcl (Janumet XR) 50-500 Mg Tbmp.24hr, 1 TAB PO DAILY for 50-850MG, TAB 08/08/18 Discontinued Scripts [Insulin Glargine] 100 UNITS/ML SOLN No Conflict Check, 15 UNITS SC DAILY@2000 f or 14 Days, #14 1 Refill 2 weeks supply and 1 refill; dispense solostar syringes/ supplies as needed. Prov:HANSA FAIR MD 08/16/18 Insulin Aspart* (Novolog Insulin Pen*) 100 Unit/Ml Soln, 5 UNIT SC WITH MEALS, #10 1 Refill 10 days supply; 1 refill. Prov:HANSA FAIR MD 08/16/18 Follow-up Plan 1. Follow up with primary care physician in 1 week. If you do not have one, please go to [facility] to establish care 2. Follow up with Dr. Ley in 1-2 weeks. Call office to schedule appointment 3. Follow up with Cardiology in 1-2 weeks 4. Follow up with Merchandising Assistant in 2-3 weeks for diabetes management. You will need a referral from your primary care physician if you do not already have one 5. Continue all medications as prescribed 6. You will need to continue on Basaglar 15 units at night and Insulin Lispro 5 units with meals to keep sugars well controlled and prevent any future complications due to diabetes 7. If experiencing any concerning symptoms, please go to the closest emergency department 1. seguimiento con el mdico de atencin primaria en 1 semana. Si usted no tiene isma, por favor vaya al centro mdico de [facility] para establecer el cuidado 2. seguimiento con el Dr. Ley en 1-2 semanas. Llame a la oficina para programar jaime albert 3. seguimiento con cardiologa en 1-2 semanas 4. seguimiento con endocrinlogo en 2-3 semanas para el control de la diabetes. Necesitar jaime derivacin de price mdico de cabecera si an no tiene jaime 5. Contine todos los medicamentos segn lo prescrito 6. usted tendr que continuar en Basaglar 15 unidades por la noche e insulina lispro 5 unidades con las comidas para mantener los azcares delfin controlados y prevenir cualquier complicacin futura debido a la diabetes 7. Si experimenta algn sntoma relacionado, por favor vaya al Departamento de emergencias ms brittney Primary Care Provider Care Physician No Primary Time spent on discharge: > 30 minutes Pending Labs Laboratory Tests Test 08/16/18 20:10 08/17/18 07:46 08/17/18 11:41 Bedside Glucose 151 mg/dL (70-220) 116 mg/dL (70-220) 232 mg/dL (70-220) MERLY CLEANING MD August 17, 2018 17:39
== END 2018-08-17 15:02 | disposition home or self-care (01) | DRG 234 ==
LOC: E/R 05:38 → TEL 07:45 → ICU 08-12 12:44 → TEL 08-14 20:45
PROVIDERS: ADMIT Internal Medicine; ATTEND Internal Medicine
PROC: 4A023N7 Measurement of Cardiac Sampling and Pressure, Left Heart, Percutaneous Approach (ICD-10-PCS; 2018-08-10)
PROC: B211YZZ Fluoroscopy of Multiple Coronary Arteries using Other Contrast (ICD-10-PCS; 2018-08-10)
PROC: 02100Z9 Bypass Coronary Artery, One Artery from Left Internal Mammary, Open Approach (ICD-10-PCS; 2018-08-12)
PROC: 06BY4ZZ Excision of Lower Vein, Percutaneous Endoscopic Approach (ICD-10-PCS; 2018-08-12)
PROC: 5A1221Z Performance of Cardiac Output, Continuous (ICD-10-PCS; 2018-08-12)
PROC: 021209W Bypass Coronary Artery, Three Arteries from Aorta with Autologous Venous Tissue, Open Approach (ICD-10-PCS; principal; 2018-08-12 13:00)
DX: I21.4 Non-ST elevation (NSTEMI) myocardial infarction (principal); I30.9 Acute pericarditis, unspecified; I25.10 Atherosclerotic heart disease of native coronary artery without angina pectoris; I10 Essential (primary) hypertension; E11.9 Type 2 diabetes mellitus without complications; E78.5 Hyperlipidemia, unspecified; I25.82 Chronic total occlusion of coronary artery; Z95.5 Presence of coronary angioplasty implant and graft
CPT/HCPCS: 36415; 36592; 36600; 71045; 80048; 80053; 80061; 82550; 82553; 82803; 82962; 83036; 83735; 83880; 84100; 84132; 84443; 84484; 85014; 85025; 85610; 85730; 86850; 86900; 86901; 86920; 87081; 93005; 93306; 93312; 93325; 93458; 93880; 94002; 97116; 97163; 97530; J0171; J0690; J1170; J1265; J1644; J1650; J1815; J1885; J1940; J2001; J2250; J2260; J2370; J2405; J2440; J2720; J3010; J3370; J3475; J3480; J7030; J7070; P9047; Q9967

== ENCOUNTER 2018-09-22 07:05 | Emergency (ER) | payer SELFPAY ==
[~2018-09-22] VITALS: Ht 165.1 cm; Wt 77.7 kg
[~2018-09-22 07:05] MED LIST changes: +ACET325T33 PO; +ASPI325T29 PO; +FAMO20TA18 PO; +GUAI120S25 PO; +INSU100I12 SQ; +INSU100I33 SC; +LACT1CAP28 PO; +METO-448 PO; +NEED-135 MC; +NOVO3I SC; +OXYC-438 PO; +PREG150C PO; +SENOKOTS PO; +TERB250T13 PO
[2018-09-22 07:15] VITALS: BP 107/70; PULSE 83; RESP 16; Ht 165.1 cm; Wt 77.7 kg
[2018-09-22] MEDS ORDERED: IBUPROFEN 800 MG TAB PO ONE (08:00)
[2018-09-22] MEDS ORDERED: IBUP800T48 PO (09:19)
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
== END 2018-09-22 09:36 | disposition home or self-care (01) ==
LOC: FTE 07:05
DX: M25.511 Pain in right shoulder (principal); I10 Essential (primary) hypertension; E11.9 Type 2 diabetes mellitus without complications; R07.81 Pleurodynia; Z79.4 Long term (current) use of insulin; Z79.82 Long term (current) use of aspirin
CPT/HCPCS: 71110